=== PATIENT | female | born 1930 | race African-American/Black ===

== ENCOUNTER → 2016-05-03 | Outpatient (CLI) | payer MEDICARE, OTHER ==
[2016-05-03 08:21] LABS: ALANINE AMINOTRANSFERASE 26 U/L (9-52); ALBUMIN 3.5 g/dL (3.5-5.0); ALKALINE PHOSPHATASE 78 U/L (38-126); ASPARTATE AMINO TRANSFERASE 26 U/L (14-36); BILIRUBIN,TOTAL 0.6 mg/dL (0.2-1.3); CHOLESTEROL 128.39 mg/dL (0-200); Direct HDL 47 mg/dL (>40); TOTAL PROTEIN 6.9 g/dL (6.3-8.2); TRIGLYCERIDES 53 mg/dL (<150)
[2016-05-03 08:25] LABS: ANION GAP 8 (5-19); BLOOD UREA NITROGEN 17 mg/dL (7-20); CALCIUM 9.5 mg/dL (8.4-10.2); CARBON DIOXIDE 33 mmol/L (22-30); CHLORIDE 102 mmol/L (98-107); CREATININE RESULT 1.18 mg/dL (0.52-1.25); GLUCOSE 86 mg/dL (75-110); POTASSIUM 4.8 mmol/L (3.6-5.0); SODIUM 143.1 mmol/L (137-145)
[2016-05-03 08:33] LABS: DIRECT LDL 56 mg/dL (<100)
== END ==
LOC: OD 07:10
PROVIDERS: ATTEND Internal Medicine Cardiovascular Disease
DX: E78.00 Pure hypercholesterolemia, unspecified (principal); Z79.899 Other long term (current) drug therapy
CPT/HCPCS: 36415; 80048; 80061; 80076; 84443

== ENCOUNTER → 2016-06-14 | Outpatient (CLI) | payer MEDICARE, OTHER ==
[2016-06-14 12:42] LABS: ANION GAP 10 (5-19); BLOOD UREA NITROGEN 23 mg/dL (7-20); CALCIUM 9.9 mg/dL (8.4-10.2); CARBON DIOXIDE 33 mmol/L (22-30); CHLORIDE 103 mmol/L (98-107); CREATININE RESULT 1.05 mg/dL (0.52-1.25); GLUCOSE 88 mg/dL (75-110); POTASSIUM 4.3 mmol/L (3.6-5.0); SODIUM 145.6 mmol/L (137-145)
== END ==
LOC: OD 07:24
PROVIDERS: ATTEND Internal Medicine Cardiovascular Disease
DX: N18.3 Chronic kidney disease, stage 3 (moderate) (principal)
CPT/HCPCS: 36415; 80048; 83735

== ENCOUNTER → 2017-03-06 | Outpatient (CLI) | payer MEDICARE, OTHER ==
[2017-03-06 08:30] LABS: ALANINE AMINOTRANSFERASE 34 U/L (9-52); ALBUMIN 3.5 g/dL (3.5-5.0); ALKALINE PHOSPHATASE 92 U/L (38-126); ANION GAP 7 (5-19); ASPARTATE AMINO TRANSFERASE 30 U/L (14-36); BILIRUBIN,DIRECT 0.1 mg/dL (0.0-0.4); BILIRUBIN,TOTAL 0.5 mg/dL (0.2-1.3); BLOOD UREA NITROGEN 17 mg/dL (7-20); CALCIUM 9.5 mg/dL (8.4-10.2); CARBON DIOXIDE 37 mmol/L (22-30); CHLORIDE 103 mmol/L (98-107); CHOLESTEROL 135.85 mg/dL (0-200); CREATININE RESULT 1.19 mg/dL (0.52-1.25); Direct HDL 49 mg/dL (>40); GLUCOSE 85 mg/dL (75-110); POTASSIUM 4.1 mmol/L (3.6-5.0); SODIUM 146.6 mmol/L (137-145); TOTAL PROTEIN 7.1 g/dL (6.3-8.2); TRIGLYCERIDES 56 mg/dL (<150)
[2017-03-06 08:41] LABS: DIRECT LDL 60 mg/dL (<100)
== END ==
LOC: OD 07:44
PROVIDERS: ATTEND Internal Medicine Cardiovascular Disease
DX: E78.00 Pure hypercholesterolemia, unspecified (principal); Z79.899 Other long term (current) drug therapy
CPT/HCPCS: 36415; 80048; 80061; 80076

== ENCOUNTER 2017-05-20 13:15 | Inpatient (IN) | payer MEDICARE, OTHER ==
[2017-05-20] MEDS ORDERED: FUROSEMIDE INJ/PF 20 MG/2 ML SDV IV ONE (13:26)
--- NOTE | 2017-05-20 13:31 | ER Document Report ---
ED Respiratory Problem - General Chief Complaint: Shortness Of Breath Stated Complaint: BREATHING PROBLEMS Time Seen by Provider: 05/20/17 13:25 Mode of Arrival: Medic Cannot obtain history due to: Dementia Notes: 86 years old female presents today with difficulty in breathing and wheezing throughout the lung field as well as coughing largely yellow-green sputum. No fever chills or other constitutional symptoms TRAVEL OUTSIDE OF THE [place] IN LAST 30 DAYS: No - Related Data Allergies/Adverse Reactions: No Known Allergies Allergy (Unverified 02/16/11 13:43) Past Medical History - General Information source: Legal Guardian Cannot obtain history due to: Dementia - Social History Smoking Status: Never Smoker Cigarette use (# per day): No Chew tobacco use (# tins/day): No Smoking Education Provided: No Frequency of alcohol use: None Drug Abuse: None Lives with: Family Family History: Reviewed & Not Pertinent - Past Medical History Cardiac Medical History: Reports: Hx Coronary Artery Disease, Hx Heart Attack, Hx Hypercholesterolemia, Hx Hypertension Pulmonary Medical History: Denies: Hx Tuberculosis Neurological Medical History: Reports: Hx Cerebrovascular Accident GI Medical History: Reports: Hx Gastroesophageal Reflux Disease Musculoskeltal Medical History: Reports Hx Arthritis Psychiatric Medical History: Reports: Hx Depression Past Surgical History: Reports: Hx Hysterectomy, Hx Orthopedic Surgery - left knee replacement. Denies: Hx Pacemaker - Immunizations Hx Diphtheria, Pertussis, Tetanus Vaccination: No Hx Pneumococcal Vaccination: 12/23/10 Review of Systems - Review of Systems -: Yes ROS unobtainable due to patient's medical condition Physical Exam - Vital signs Vitals: Pulse Ox 100 05/20/17 13:15 - Notes Notes: PHYSICAL EXAMINATION: GENERAL: Appears in mild to moderate respiratory discomfort. HEAD: Atraumatic, normocephalic. EYES: Pupils equal round and reactive to light, extraocular movements intact, conjunctiva are normal. ENT: Nares patent, oropharynx clear without exudates. Moist mucous membranes. NECK: Normal range of motion, supple without lymphadenopathy LUNGS: Diffuse rales and expiratory throughout the lung field. HEART: Regular rate and rhythm without murmurs ABDOMEN: Soft, nontender, nondistended abdomen. No guarding, no rebound. No masses appreciated. Female : deferred Musculoskeletal: Normal range of motion, no pitting or edema. No cyanosis. NEUROLOGICAL: She is alert but not oriented to place. According to the sister this is a normal status from the old CVA PSYCH: Normal mood, normal affect. SKIN: Warm, Dry, normal turgor, no rashes or lesions noted. Course - Re-evaluation Re-evalutation: 05/20/17 16:06 Patient remained stable with slight improvement. Lab reports reviewed, discussed with the hospitalist service and currently being admitted. - Vital Signs Vital signs: Temp Pulse Resp BP Pulse Ox 97.8 F 20 158/81 H 98 05/21/17 01:45 05/21/17 06:03 05/21/17 05:01 05/21/17 06:03 - Laboratory Result Diagrams: 05/21/17 04:30 05/21/17 04:30 Laboratory results interpreted by me: 05/20/17 05/20/17 05/20/17 13:10 13:10 14:55 RDW 15.4 H Carbonic Acid 1.63 H ABG pCO2 54.2 H ABG pO2 76.1 L ABG HCO3 30.3 H ABG Total CO2 31.9 H Sodium 147.3 H Carbon Dioxide 33 H Est GFR ( Amer) 59 L Est GFR (Non-Af Amer) 49 L - EKG Interpretation by Me EKG shows normal: Sinus rhythm Rate: Normal Rhythm: NSR When compared to previous EKG there are: No significant change - Sinus rhythm at a rate of 77 bpm normal Jose no acute ST elevation ST depression T-wave inversion noted. Discharge - Discharge Clinical Impression: COPD with exacerbation, Hypercarbia CHF NYHA class III (symptoms with mildly strenuous activities) Qualifiers: Congestive heart failure type: systolic Congestive heart failure chronicity: acute Qualified Code(s): I50.21 - Acute systolic (congestive) heart failure Disposition: ADMITTED INPATIENT Admitting Provider: Hospitalist Unit Admitted: Telemetry
[2017-05-20 13:45] LABS: ABSOLUTE EOSINOPHILS # (AUTO) 0.2 10^3/uL (0.0-0.6); ABSOLUTE LYMPHOCYTES (AUTO) 1.1 10^3/uL (0.5-4.7); ABSOLUTE MONOCYTES (AUTO) 0.5 10^3/uL (0.1-1.4); HEMOGLOBIN 13.4 g/dL (12.0-15.5); LYMPHOCYTES % (AUTO) 22.6 % (13-45); MEAN CORPUSCULAR HEMOGLOBIN 29.2 pg (27.0-33.4); MEAN CORPUSCULAR HGB CONC 32.7 g/dL (32.0-36.0); MEAN CORPUSCULAR VOLUME 89 fl (80-97); MONOCYTES % (AUTO) 10.5 % (3-13); PLATELET COUNT 196 10^3/uL (150-450); RED BLOOD COUNT 4.59 10^6/uL (3.72-5.28); RED CELL DISTRIBUTION WIDTH 15.4 % (11.5-14.0); SEGMENTED NEUTROPHILS % (AUTO) 61.9 % (42-78); TOTAL CELLS COUNTED % (AUTO) 100 %; WHITE BLOOD COUNT 4.8 10^3/uL (4.0-10.5)
--- NOTE | 2017-05-20 13:48 | EKG REPORT ---
SEVERITY:- ABNORMAL ECG - SINUS RHYTHM BORDERLINE LEFT AXIS DEVIATION PROBABLE ANTEROSEPTAL INFARCT, AGE INDETERM : Confirmed by: French Doherty MD 20-May-2017 13:47:17
--- NOTE | 2017-05-20 14:11 | RADIOLOGY REPORT (SQ) ---
EXAM DESCRIPTION: CHEST SINGLE VIEW COMPLETED DATE/TIME: 05/20/2017 1:49 pm REASON FOR STUDY: Acute shortness of breath COMPARISON: Two-view chest 08/20/2012 AP chest 02/18/2011 EXAM PARAMETERS: NUMBER OF VIEWS: One view. TECHNIQUE: Single frontal radiographic view of the chest acquired. RADIATION DOSE: NA LIMITATIONS: None. FINDINGS: LUNGS AND PLEURA: Few Yesi lines at both bases likely mild interstitial edema. No fluffy alveolar infiltrates worrisome for alveolar edema or pneumonia. No pleural effusion. No pneumothorax. MEDIASTINUM AND HILAR STRUCTURES: No masses. Contour normal. HEART AND VASCULAR STRUCTURES: Tortuous uncoiled thoracic aorta. No cardiomegaly BONES: No acute findings. HARDWARE: None in the chest. OTHER: No other significant finding. IMPRESSION: Question mild interstitial edema TECHNICAL DOCUMENTATION: JOB ID: [id number] [employer]- All Rights Reserved Reading location - IP/workstation name: [email or web address]
[2017-05-20 14:14] LABS: ALANINE AMINOTRANSFERASE 27 U/L (9-52); ALBUMIN 3.5 g/dL (3.5-5.0); ALKALINE PHOSPHATASE 75 U/L (38-126); ANION GAP 11 (5-19); ASPARTATE AMINO TRANSFERASE 27 U/L (14-36); BILIRUBIN,DIRECT 0.2 mg/dL (0.0-0.4); BILIRUBIN,TOTAL 0.3 mg/dL (0.2-1.3); BLOOD UREA NITROGEN 18 mg/dL (7-20); CALCIUM 9.2 mg/dL (8.4-10.2); CARBON DIOXIDE 33 mmol/L (22-30); CHLORIDE 103 mmol/L (98-107); CREATINE KINASE 135 U/L (30-135); GLUCOSE 88 mg/dL (75-110); POTASSIUM 3.9 mmol/L (3.6-5.0); SODIUM 147.3 mmol/L (137-145); TOTAL PROTEIN 6.5 g/dL (6.3-8.2)
[2017-05-20 14:23] LABS: NT PRO BNP 443 pg/mL (<450)
[2017-05-20 14:25] LABS: TROPONIN I < 0.012 ng/mL
[2017-05-20 15:05] LABS: APPEARANCE,URINE CLEAR; BILIRUBIN,URINE NEGATIVE (NEGATIVE); COLOR,URINE STRAW; GLUCOSE, URINE NEGATIVE (NEGATIVE); KETONES,URINE NEGATIVE (NEGATIVE); LEUKOCYTE ESTERASE,URINE NEGATIVE (NEGATIVE); NITRITE,URINE NEGATIVE (NEGATIVE); PROTEIN,URINE NEGATIVE (NEGATIVE); URINE SPECIFIC GRAVITY 1.008; UROBILINOGEN,URINE NEGATIVE mg/dL (<2.0)
[2017-05-20 15:09] LABS: ARTERIAL BLOOD BASE EXCESS 3.6 mmol/L; ARTERIAL BLOOD H2CO3 1.63 mmol/L (1.05-1.35); ARTERIAL BLOOD HCO3 30.3 mmol/L (20-26); ARTERIAL BLOOD O2 SATURATION 94.6 % (94-98); ARTERIAL BLOOD PCO2 54.2 mmHg (35-45); ARTERIAL BLOOD PH 7.37 (7.35-7.45); ARTERIAL BLOOD PO2 76.1 mmHg (80-100); ARTERIAL BLOOD TOTAL CO2 31.9 mmol/L (21-25)
[2017-05-20 15:11] LABS: ARTERIAL BLOOD FIO2 3L
[2017-05-20] MEDS ORDERED: ACETAMINOPHEN 325 MG TABLET PO PRN (16:40)
[2017-05-20] MEDS ORDERED: ONDANSETRON HCL INJ/PF 4 MG/2 ML SDV IV PRN (16:40)
--- NOTE | 2017-05-20 17:05 | PDOC H&P ---
History of Present Illness Admission Date/PCP: 05/20/2017 PEGGY CLAYTON MD Patient complains of: Shortness of breath History of Present Illness: JASON ZHENG is a 86 year old female presents to the emergency room with complaint of shortness of breath that began yesterday. Patient's niece states that she has noticed that patient's blood pressure has been very high at home. Patient's states that patient is seen by Dr. Fernandez and he tried to take patient to Dr. Fernandez's office today but she was not able to see him. Patient states that due to patient's shortness breath he brought her to the hospital. She denied chest pain, nausea or vomiting, or diarrhea. Patient does admit to having shortness of breath. Past Medical History Cardiac Medical History: Reports: Coronary Artery Disease, Myocardial Infarction , Hyperlipidema, Hypertension Pulmonary Medical History: Denies: Tuberculosis GI Medical History: Reports: Gastroesophageal Reflux Disease Musculoskeltal Medical History: Reports: Arthritis Psychiatric Medical History: Reports: Depression Past Surgical History Past Surgical History: Reports: Hysterectomy, Orthopedic Surgery - left knee replacement Denies: Pacemaker Social History Information Source: Patient Lives with: Family Smoking Status: Never Smoker Frequency of Alcohol Use: None Hx Recreational Drug Use: No Drugs: None Hx Prescription Drug Abuse: No - Advance Directive Resuscitation Status: Full Code Family History Family History: Reviewed & Not Pertinent Parental Family History Reviewed: Yes Children Family History Reviewed: Yes Sibling(s) Family History Reviewed.: Yes Medication/Allergy Allergies/Adverse Reactions: No Known Allergies Allergy (Unverified 02/16/11 13:43) Review of Systems Constitutional: ABSENT: chills, fever(s), headache(s), weight gain, weight loss Eyes: ABSENT: visual disturbances Ears: ABSENT: hearing changes Cardiovascular: PRESENT: orthropnea. ABSENT: chest pain, dyspnea on exertion, edema, palpitations Respiratory: PRESENT: dyspnea. ABSENT: cough, hemoptysis Gastrointestinal: ABSENT: abdominal pain, constipation, diarrhea, hematemesis, hematochezia, nausea, vomiting Genitourinary: ABSENT: dysuria, hematuria Musculoskeletal: ABSENT: joint swelling Integumentary: ABSENT: rash, wounds Neurological: ABSENT: abnormal gait, abnormal speech, confusion, dizziness, focal weakness, syncope Psychiatric: ABSENT: anxiety, depression, homidical ideation, suicidal ideation Endocrine: ABSENT: cold intolerance, heat intolerance, polydipsia, polyuria Hematologic/Lymphatic: ABSENT: easy bleeding, easy bruising Physical Exam Vital Signs: Temp Pulse Resp BP Pulse Ox 100 05/20/17 13:15 General appearance: PRESENT: no acute distress, well-nourished Head exam: PRESENT: atraumatic, normocephalic Eye exam: PRESENT: conjunctiva pink, EOMI. ABSENT: scleral icterus Ear exam: PRESENT: normal external ear exam Mouth exam: PRESENT: moist, tongue midline Neck exam: ABSENT: carotid bruit, JVD, lymphadenopathy, thyromegaly Respiratory exam: PRESENT: other - Positive for crackles heard bilaterally. ABSENT: accessory muscle use, chest wall tenderness, clear to auscultation juanjose, crackles, prolonged expiratory phas, rales Cardiovascular exam: PRESENT: RRR. ABSENT: diastolic murmur, rubs, systolic murmur Pulses: PRESENT: normal dorsalis pedis pul Vascular exam: PRESENT: normal capillary refill GI/Abdominal exam: PRESENT: normal bowel sounds, soft. ABSENT: distended, guarding, mass, organolmegaly, rebound, tenderness Rectal exam: PRESENT: deferred Extremities exam: PRESENT: full ROM. ABSENT: calf tenderness, clubbing, pedal edema Musculoskeletal exam: PRESENT: full ROM Neurological exam: PRESENT: alert, awake, oriented to person, oriented to place , oriented to time, oriented to situation Psychiatric exam: PRESENT: appropriate affect, normal mood. ABSENT: homicidal ideation, suicidal ideation Skin exam: PRESENT: dry, intact, warm. ABSENT: cyanosis, rash Results Laboratory Results: 05/20/17 13:10 05/20/17 13:10 05/20/17 05/20/17 05/20/17 13:10 13:10 14:45 WBC 4.8 RBC 4.59 Hgb 13.4 Hct 41.0 MCV 89 MCH 29.2 MCHC 32.7 RDW 15.4 H Plt Count 196 Seg Neutrophils % 61.9 Lymphocytes % 22.6 Monocytes % 10.5 Eosinophils % 4.0 Basophils % 1.0 Absolute Neutrophils 3.0 Absolute Lymphocytes 1.1 Absolute Monocytes 0.5 Absolute Eosinophils 0.2 Absolute Basophils 0.0 Carbonic Acid HCO3/H2CO3 Ratio ABG pH ABG pCO2 ABG pO2 ABG HCO3 ABG O2 Saturation ABG Base Excess FiO2 Sodium 147.3 H Potassium 3.9 Chloride 103 Carbon Dioxide 33 H Anion Gap 11 BUN 18 Creatinine 1.07 Est GFR ( Amer) 59 L Est GFR (Non-Af Amer) 49 L Glucose 88 Calcium 9.2 Total Bilirubin 0.3 AST 27 ALT 27 Alkaline Phosphatase 75 Total Protein 6.5 Albumin 3.5 Urine Color STRAW Urine Appearance CLEAR Urine pH 7.0 Ur Specific [place] 1.008 Urine Protein NEGATIVE Urine Glucose (UA) NEGATIVE Urine Ketones NEGATIVE Urine Blood NEGATIVE Urine Nitrite NEGATIVE Ur Leukocyte Esterase NEGATIVE Urine WBC (Auto) 1 Urine RBC (Auto) 1 05/20/17 14:55 WBC RBC Hgb Hct MCV MCH MCHC RDW Plt Count Seg Neutrophils % Lymphocytes % Monocytes % Eosinophils % Basophils % Absolute Neutrophils Absolute Lymphocytes Absolute Monocytes Absolute Eosinophils Absolute Basophils Carbonic Acid 1.63 H HCO3/H2CO3 Ratio 18:1 ABG pH 7.37 ABG pCO2 54.2 H ABG pO2 76.1 L ABG HCO3 30.3 H ABG O2 Saturation 94.6 ABG Base Excess 3.6 FiO2 3L Sodium Potassium Chloride Carbon Dioxide Anion Gap BUN Creatinine Est GFR ( Amer) Est GFR (Non-Af Amer) Glucose Calcium Total Bilirubin AST ALT Alkaline Phosphatase Total Protein Albumin Urine Color Urine Appearance Urine pH Ur Specific [place] Urine Protein Urine Glucose (UA) Urine Ketones Urine Blood Urine Nitrite Ur Leukocyte Esterase Urine WBC (Auto) Urine RBC (Auto) 05/20/17 05/20/17 13:10 13:10 Creatine Kinase 135 CK-MB (CK-2) 2.70 Troponin I < 0.012 NT-Pro-B Natriuret Pep 443 Impressions: Chest X-Ray 05/20/17 13:26 IMPRESSION: Question mild interstitial edema Assessment & Plan - Diagnosis (1) Acute on chronic diastolic CHF (congestive heart failure) Is this a current diagnosis for this admission?: Yes Plan: Most likely secondary to diastolic congestive heart failure and poorly controlled blood pressure: We will place patient on low-dose Lasix. Will repeat chest x-ray in a.m. Patient's presentation consistent with CHF exacerbation. X-ray does not demonstrate evidence consistent with pneumonia. Will check 2D echo (2) Essential hypertension Is this a current diagnosis for this admission?: Yes Plan: Patient's blood pressure is poorly controlled. Will restart patient's home medications but make adjustments for better blood pressure control. This would also contribute to patient's CHF exacerbation. (3) Dyspnea Is this a current diagnosis for this admission?: Yes Plan: Secondary to acute on chronic diastolic congestive heart failure: Low-dose Lasix (4) History of CVA (cerebrovascular accident) Is this a current diagnosis for this admission?: No Plan: Stable (5) Hypernatremia Is this a current diagnosis for this admission?: Yes Plan: We will monitor patient's sodium closely. (6) DVT prophylaxis Is this a current diagnosis for this admission?: Yes Plan: SCDs - Time Time Spent: 30 to 50 Minutes - Home medicines currently not reconciled.
[2017-05-20 18:12] LABS: CREATINE KINASE MB 2.49 ng/mL (<4.55)
[2017-05-20 18:17] LABS: TROPONIN I < 0.012 ng/mL
[2017-05-20 23:23] LABS: CREATINE KINASE MB 1.94 ng/mL (<4.55)
[2017-05-20 23:25] LABS: TROPONIN I < 0.012 ng/mL
[2017-05-21 05:33] LABS: ABSOLUTE LYMPHOCYTES (AUTO) 0.5 10^3/uL (0.5-4.7); ABSOLUTE MONOCYTES (AUTO) 0.2 10^3/uL (0.1-1.4); ABSOLUTE NEUT (AUTO) 6.4 10^3/uL (1.7-8.2); BASOPHILS % (AUTO) 0.2 % (0-2); HEMATOCRIT 43.1 % (36.0-47.0); HEMOGLOBIN 14.2 g/dL (12.0-15.5); LYMPHOCYTES % (AUTO) 7.5 % (13-45); MEAN CORPUSCULAR HEMOGLOBIN 29.1 pg (27.0-33.4); MEAN CORPUSCULAR HGB CONC 32.9 g/dL (32.0-36.0); MEAN CORPUSCULAR VOLUME 89 fl (80-97); MONOCYTES % (AUTO) 2.2 % (3-13); PLATELET COUNT 230 10^3/uL (150-450); RED BLOOD COUNT 4.88 10^6/uL (3.72-5.28); RED CELL DISTRIBUTION WIDTH 15.3 % (11.5-14.0); SEGMENTED NEUTROPHILS % (AUTO) 90.1 % (42-78); TOTAL CELLS COUNTED % (AUTO) 100 %; WHITE BLOOD COUNT 7.1 10^3/uL (4.0-10.5)
[2017-05-21 05:56] LABS: ALANINE AMINOTRANSFERASE 24 U/L (9-52); ALBUMIN 3.4 g/dL (3.5-5.0); ALKALINE PHOSPHATASE 64 U/L (38-126); ANION GAP 5 (5-19); ASPARTATE AMINO TRANSFERASE 22 U/L (14-36); BILIRUBIN,DIRECT 0.3 mg/dL (0.0-0.4); BILIRUBIN,TOTAL 0.4 mg/dL (0.2-1.3); BLOOD UREA NITROGEN 19 mg/dL (7-20); CALCIUM 9.5 mg/dL (8.4-10.2); CARBON DIOXIDE 34 mmol/L (22-30); CHLORIDE 104 mmol/L (98-107); CHOLESTEROL 142.08 mg/dL (0-200); GLUCOSE 119 mg/dL (75-110); POTASSIUM 4.7 mmol/L (3.6-5.0); TOTAL PROTEIN 6.8 g/dL (6.3-8.2); TRIGLYCERIDES 40 mg/dL (<150)
[2017-05-21 06:04] LABS: CREATINE KINASE MB 1.57 ng/mL (<4.55)
[2017-05-21 06:07] LABS: DIRECT LDL 73 mg/dL (<100)
[2017-05-21 06:10] LABS: FREE T4 (FREE THYROXINE) 0.87 ng/dL (0.78-2.19)
[2017-05-21 06:17] LABS: TROPONIN I < 0.012 ng/mL
[2017-05-21 06:24] LABS: THYROID STIMULATING HORMONE 0.43 uIU/mL (0.47-4.68)
[2017-05-21] MEDS: LANSOPRAZOLE 30 MG TAB.RAP.DR PO SCH (07:43)
--- NOTE | 2017-05-21 08:43 | RADIOLOGY REPORT (SQ) ---
EXAM DESCRIPTION: CHEST SINGLE VIEW COMPLETED DATE/TIME: 05/21/2017 8:33 am REASON FOR STUDY: shortness of breath CHF COMPARISON: Chest films 02/18/2011, 08/20/2012, 05/20/2017 EXAM PARAMETERS: NUMBER OF VIEWS: One view. TECHNIQUE: Single frontal radiographic view of the chest acquired. RADIATION DOSE: NA LIMITATIONS: None. FINDINGS: LUNGS AND PLEURA: No opacities, masses or pneumothorax. No pleural effusion. MEDIASTINUM AND HILAR STRUCTURES: No masses. Contour normal. HEART AND VASCULAR STRUCTURES: Mild cardiomegaly, stable BONES: No acute findings. HARDWARE: None in the chest. OTHER: No other significant finding. IMPRESSION: NO ACUTE RADIOGRAPHIC FINDING IN THE CHEST. TECHNICAL DOCUMENTATION: JOB ID: [id number] [employer]- All Rights Reserved Reading location - IP/workstation name: [email or web address]
[2017-05-21] MEDS ORDERED: FUROSEMIDE INJ/PF 20 MG/2 ML SDV IV SCH ×2 (10:00→18:00)
[2017-05-21] MEDS ORDERED: ALPRAZOLAM 0.5 MG TABLET PO PRN (11:01)
[2017-05-21] MEDS ORDERED: LISINOPRIL 10 MG TABLET PO ONE (11:05)
[2017-05-21] MEDS ORDERED: AMLODIPINE BESYLATE 5 MG TABLET PO ONE (11:05)
--- NOTE | 2017-05-21 11:10 | PDOC PROGRESS REPORT ---
Subjective Progress Note for:: 05/21/17 Subjective:: Pt states that her breathing has improved. Pt states that she was about to sleep without oxygen. Nursing states that her sats dropped in to the low 80 to upper 90's. Reason For Visit: ACUTE ON CHRONIC DIASTOLIC CHF Physical Exam Vital Signs: Temp Pulse Resp BP Pulse Ox 97.8 F 19 100/65 96 05/21/17 01:45 05/21/17 09:01 05/21/17 09:01 05/21/17 09:01 General appearance: PRESENT: no acute distress, well-developed, well-nourished, other - Nasal canula in place Head exam: PRESENT: atraumatic, normocephalic Eye exam: PRESENT: conjunctiva pink, EOMI Ear exam: PRESENT: normal external ear exam Mouth exam: PRESENT: moist, tongue midline Neck exam: ABSENT: carotid bruit, JVD, lymphadenopathy, thyromegaly Respiratory exam: PRESENT: rales, other - Bilateral lower lobes. ABSENT: wheezes Cardiovascular exam: PRESENT: RRR. ABSENT: diastolic murmur, rubs, systolic murmur Pulses: PRESENT: normal dorsalis pedis pul Vascular exam: PRESENT: normal capillary refill GI/Abdominal exam: PRESENT: normal bowel sounds, soft. ABSENT: distended, guarding, mass, organolmegaly, rebound, tenderness Rectal exam: PRESENT: deferred Extremities exam: ABSENT: calf tenderness, clubbing, pedal edema Neurological exam: PRESENT: alert, altered, oriented to person, oriented to place, oriented to time Psychiatric exam: PRESENT: appropriate affect, normal mood. ABSENT: homicidal ideation, suicidal ideation Skin exam: PRESENT: dry, intact, warm. ABSENT: cyanosis, rash Results Laboratory Results: 05/21/17 04:30 05/21/17 04:30 05/21/17 05/21/17 05/21/17 04:30 04:30 04:30 WBC 7.1 RBC 4.88 Hgb 14.2 Hct 43.1 MCV 89 MCH 29.1 MCHC 32.9 RDW 15.3 H Plt Count 230 Seg Neutrophils % 90.1 H Lymphocytes % 7.5 L Monocytes % 2.2 L Eosinophils % 0.0 Basophils % 0.2 Absolute Neutrophils 6.4 Absolute Lymphocytes 0.5 Absolute Monocytes 0.2 Absolute Eosinophils 0.0 Absolute Basophils 0.0 Sodium 143.0 Potassium 4.7 Chloride 104 Carbon Dioxide 34 H Anion Gap 5 BUN 19 Creatinine 0.85 Est GFR ( Amer) > 60 Est GFR (Non-Af Amer) > 60 Glucose 119 H Calcium 9.5 Magnesium 2.0 Total Bilirubin 0.4 AST 22 ALT 24 Alkaline Phosphatase 64 Total Protein 6.8 Albumin 3.4 L Triglycerides 40 Cholesterol 142.08 LDL Cholesterol Direct 73 VLDL Cholesterol 8.0 L HDL Cholesterol 54 TSH 0.43 L Free T4 0.87 05/20/17 05/20/17 05/21/17 17:32 22:35 04:30 CK-MB (CK-2) 2.49 1.94 1.57 Troponin I < 0.012 < 0.012 < 0.012 Impressions: Chest X-Ray 05/21/17 00:00 IMPRESSION: NO ACUTE RADIOGRAPHIC FINDING IN THE CHEST. Assessment & Plan - Diagnosis (1) Acute on chronic diastolic CHF (congestive heart failure) Is this a current diagnosis for this admission?: Yes Plan: Most likely secondary to presumed diastolic congestive heart failure with poorly controlled blood pressure: We will continue Lasix. Chest x-ray demonstrates improvement in pulmonary edema but patient still has evidence consistent with pulmonary edema. Patient states that she is not requiring nasal cannula however nursing states that her sats are in the 80s to lower 90s. (2) Essential hypertension Is this a current diagnosis for this admission?: Yes Plan: Place patient on low-dose lisinopril and Norvasc. Would add metoprolol however her heart rate is in the 60s. (3) Dyspnea Is this a current diagnosis for this admission?: Yes Plan: Secondary to acute on chronic diastolic congestive heart failure: Improving with diuresis. We will continue to monitor. 2D echo pending (4) History of CVA (cerebrovascular accident) Is this a current diagnosis for this admission?: No Plan: Supportive care. (5) Hypernatremia Is this a current diagnosis for this admission?: Yes Plan: Resolved. (6) DVT prophylaxis Is this a current diagnosis for this admission?: Yes Plan: SCDs - Time Time Spent with patient: 15-24 minutes
[2017-05-21] MEDS: FLUOXETINE HCL 20 MG CAPSULE PO SCH (12:45)
[2017-05-21] MEDS ORDERED: INFLUENZA ADLT QUAD (36MOS+) 2017-18 VAC 0.5 ML SYR IM PRN (15:07)
--- NOTE | 2017-05-21 18:48 | XCELERA REPORT ---
[address] [address] Transthoracic Echocardiogram Report Name: JASON ZHENG Age: 86 yrs Gender: Female : 1930 Patient Status: Inpatient Patient Location: [place] [address]^A Study Date: 05/21/2017 01:13 PM Height: 63 in Weight: 145 lb BSA: 1.7 m2 Procedure: A complete two-dimensional transthoracic echocardiogram was performed (2D, M-mode, spectral and color flow Doppler). The study was technically adequate with some images being suboptimal in quality. Reason For Study: Acute CHF Ordering Physician: ERMELINDA PERALES Performed By: Pili Melendez Interpretation Summary The left ventricular ejection fraction is within normal limits. Doppler measurements suggest pseudonormalized left ventricular relaxation, which is associated with grade II/IV or mild to moderate diastolic dysfunction There is mild concentric left ventricular hypertrophy. The left ventricle is grossly normal size. Wall motion cannot be accurately commented on, but no definite regional wall motion abnormalities noted. The right ventricular systolic function is normal. The right atrium is normal. The left atrial size is normal. There is a trace to mild amount of mitral regurgitation There is no mitral valve stenosis. There is a mild amount of aortic regurgitation There is no aortic valve stenosis There is a trace or physiologic amount of tricuspid regurgitation Tricuspid regurgitation jet envelope not well defined to measure RV systolic pressure accurately. The aortic root is not well visualized. The inferior vena cava appeared normal and decreased > 50% with respiration (RAP 5-10 mmHg) Minimal pericardial effusion. MMode/2D Measurements & Calculations RVDd: 2.7 cm LVIDd: 4.3 cm FS: 30.2 % Ao root diam: 2.9 cm IVSd: 1.1 cm LVIDs: 3.0 cm EDV(Teich): 82.0 ml LVPWd: 1.2 cm ESV(Teich): 34.6 ml Ao root area: 6.5 cm2 EF(Teich): 57.8 % LA dimension: 2.9 cm Doppler Measurements & Calculations MV E max edel: MV P1/2t max edel: Ao V2 max: AI max edel: 89.3 cm/sec 89.3 cm/sec 122.6 cm/sec 333.4 cm/sec MV A max edel: MV P1/2t: 53.2 msec Ao max PG: AI max P.1 cm/sec 6.0 mmHg 44.5 mmHg MV E/A: 1.3 MVA(P1/2t): 4.1 cm2 AI dec slope: MV dec slope: 492.0 cm/sec2 110.9 cm/sec2 AI P1/2t: 880.4 msec LV V1 max PG: PA V2 max: TR max edel: 3.8 mmHg 61.2 cm/sec 232.1 cm/sec LV V1 max: PA max P.5 mmHg TR max P.2 cm/sec 21.6 mmHg Left Ventricle The left ventricle is grossly normal size. There is mild concentric left ventricular hypertrophy. The left ventricular ejection fraction is within normal limits. Doppler measurements suggest pseudonormalized left ventricular relaxation, which is associated with grade II/IV or mild to moderate diastolic dysfunction. Wall motion cannot be accurately commented on, but no definite regional wall motion abnormalities noted. Right Ventricle The right ventricle is grossly normal size. There is normal right ventricular wall thickness. The right ventricular systolic function is normal. Atria The right atrium is normal. The left atrial size is normal. Interarterial septum not well visualized and not well dopplered. Cannot comment on ASD/PFO presence. Mitral Valve The mitral valve is grossly normal. There is no mitral valve stenosis. There is a trace to mild amount of mitral regurgitation. Aortic Valve The aortic valve is grossly normal. There is no aortic valve stenosis. There is a mild amount of aortic regurgitation. Tricuspid Valve The tricuspid valve is not well visualized, but is grossly normal. There is no tricuspid stenosis. There is a trace or physiologic amount of tricuspid regurgitation. Tricuspid regurgitation jet envelope not well defined to measure RV systolic pressure accurately. Pulmonic Valve The pulmonic valve is not well visualized. Great Vessels The aortic root is not well visualized. The inferior vena cava appeared normal and decreased > 50% with respiration (RAP 5-10 mmHg). Effusions Minimal pericardial effusion. : ERMELINDA PERALES > Raphael Tian
[2017-05-21] MEDS: RISPERIDONE 1 MG TABLET PO SCH (21:06)
[2017-05-21] MEDS: TOLTERODINE TARTRATE 1 MG TABLET PO SCH (21:06)
[2017-05-22] MEDS: LANSOPRAZOLE 30 MG TAB.RAP.DR PO SCH (05:08)
[2017-05-22] MEDS: TOLTERODINE TARTRATE 1 MG TABLET PO SCH ×2 (09:59→22:12)
[2017-05-22] MEDS: AMLODIPINE BESYLATE 5 MG TABLET PO SCH (10:00)
[2017-05-22] MEDS: EZETIMIBE 10 MG TABLET PO SCH (10:00)
[2017-05-22] MEDS ORDERED: (PENDING PHARMACY ID) (Tolterodine Tartrate [Detrol La] 4 MG) PO SCH (10:00)
[2017-05-22] MEDS: FUROSEMIDE INJ/PF 20 MG/2 ML SDV IV SCH (10:01)
[2017-05-22] MEDS: LISINOPRIL 10 MG TABLET PO SCH (10:01)
[2017-05-22] MEDS: FLUOXETINE HCL 20 MG CAPSULE PO SCH (11:35)
--- NOTE | 2017-05-22 14:18 | PDOC PROGRESS REPORT ---
Subjective Progress Note for:: 05/22/17 Subjective:: No overnight events. Feeling better. Still requiring O2. No specific complaints. Has not been getting out of bed. Reason For Visit: ACUTE ON CHRONIC DIASTOLIC CHF Physical Exam Vital Signs: Temp Pulse Resp BP Pulse Ox 98.6 F 66 20 114/55 L 100 05/22/17 12:25 05/22/17 12:25 05/22/17 12:25 05/22/17 12:25 05/22/17 12:25 Intake & Output 05/21/17 05/22/17 05/23/17 06:59 06:59 06:59 Intake Total 467 355 Output Total 740 Balance -273 355 Weight 65.9 kg General appearance: PRESENT: no acute distress, well-developed, well-nourished Head exam: PRESENT: atraumatic, normocephalic Mouth exam: PRESENT: moist Respiratory exam: PRESENT: crackles, decreased breath sounds, unlabored - On supplemental O2 Cardiovascular exam: PRESENT: +S1, +S2. ABSENT: systolic murmur GI/Abdominal exam: PRESENT: soft. ABSENT: tenderness Extremities exam: ABSENT: pedal edema Neurological exam: PRESENT: alert, awake Psychiatric exam: PRESENT: appropriate affect Results Laboratory Results: 05/21/17 04:30 05/21/17 04:30 05/20/17 05/20/17 05/21/17 17:32 22:35 04:30 CK-MB (CK-2) 2.49 1.94 1.57 Troponin I < 0.012 < 0.012 < 0.012 Impressions: Chest X-Ray 05/21/17 00:00 IMPRESSION: NO ACUTE RADIOGRAPHIC FINDING IN THE CHEST. Assessment & Plan - Diagnosis (1) Acute on chronic diastolic CHF (congestive heart failure) Is this a current diagnosis for this admission?: Yes Plan: Per TTE, HFpEF with Grade II/IV diastolic dysfunction - Continue with gentle diuresis, Lasix 20mg IV daily - Occasionally requiring O2 however good O2 sats (2) Dyspnea Qualifiers: Dyspnea type: dyspnea on exertion Qualified Code(s): R06.09 - Other forms of dyspnea Is this a current diagnosis for this admission?: Yes Plan: Continue management per above (3) Essential hypertension Is this a current diagnosis for this admission?: Yes Plan: Blood pressure stable (4) History of CVA (cerebrovascular accident) Is this a current diagnosis for this admission?: No Plan: Supportive management. - Time Time Spent with patient: Less than 15 minutes Anticipated discharge: Home with Homehealth Within: within 24 hours
[2017-05-22] MEDS: RISPERIDONE 1 MG TABLET PO SCH (22:12)
[2017-05-23] MEDS: LANSOPRAZOLE 30 MG TAB.RAP.DR PO SCH (05:20)
[2017-05-23] MEDS: FUROSEMIDE INJ/PF 20 MG/2 ML SDV IV SCH (09:35)
[2017-05-23] MEDS: TOLTERODINE TARTRATE 1 MG TABLET PO SCH (09:36)
[2017-05-23] MEDS: EZETIMIBE 10 MG TABLET PO SCH (09:36)
[2017-05-23] MEDS: AMLODIPINE BESYLATE 5 MG TABLET PO SCH (09:37)
[2017-05-23] MEDS: LISINOPRIL 10 MG TABLET PO SCH (09:37)
--- NOTE | 2017-05-23 10:15 | PDOC DISCHARGE SUMMARY ---
General - Admit/Disc Date/PCP Admission Date/Primary Care Provider: 05/22/17 15:59 PEGGY CLAYTON MD Discharge Date: 05/23/17 - Discharge Diagnosis (1) Acute on chronic diastolic CHF (congestive heart failure) Is this a current diagnosis for this admission?: Yes Summary: Improved, euvolemic on exam. Back to baseline of not requiring supplemental O2. - Received gentle diuresis with Lasix 20mg IV daily, continue PO lasix at home - Echo this admission: HFpEF with Grade II/IV diastolic dysfunction - Advised to follow cardiac diet, monitor fluid intake, check daily weights - Called PCP if weight is up 2-3 lbs in 1 day, or >5 lbs in one week (2) Dyspnea Is this a current diagnosis for this admission?: Yes Summary: Resolved with diuresis (3) Essential hypertension Is this a current diagnosis for this admission?: Yes Summary: Elevated at admission, better control at discharge - New medications include amlodipine 5mg daily PO and lisinopril 10mg daily PO - Check BP at home and ensure it is not above SBP 150 - Follow up with PCP for BP med adjustment as needed (4) History of CVA (cerebrovascular accident) Is this a current diagnosis for this admission?: No Summary: Stable - Should be on ASA 81mg daily and statin for secondary ppx, will defer to PCP - Additional Information Resuscitation Status: Full Code Discharge Diet: Cardiac Discharge Activity: Activity As Tolerated Prescriptions: Amlodipine Besylate [Norvasc 5 mg Tablet] 5 mg PO DAILY 2 Days #30 tablet Lisinopril [Prinivil 10 mg Tablet] 10 mg PO DAILY #30 tablet Home Medications: Alprazolam [Xanax 0.5 mg Tablet] 0.5 mg PO Q8HP PRN 05/20/17 Fluoxetine HCl [Prozac] 40 mg PO DAILY 05/20/17 Furosemide [Lasix 40 mg Tablet] 40 mg PO DAILY 05/20/17 Risperidone [Risperdal 1 mg Tablet] 1 g PO QHS 05/20/17 Tolterodine Tartrate [Detrol LA] 4 mg PO DAILY 05/20/17 Amlodipine Besylate [Norvasc 5 mg Tablet] 5 mg PO DAILY 2 Days #30 tablet Lisinopril [Prinivil 10 mg Tablet] 10 mg PO DAILY #30 tablet 05/23/17 History of Present Illness Patient complains of: SOB History of Present Illness: JASON ZHENG is a 86 year old female who presented on 05/20/17 to emergency room with complaint of shortness of breath that began yesterday. Patient's niece states that she has noticed that patient's blood pressure has been very high at home. Patient's states that patient is seen by Dr. Fernandez and he tried to take patient to Dr. Fernandez's office today but she was not able to see him. Patient states that due to patient's shortness breath he brought her to the hospital. She denied chest pain, nausea or vomiting, or diarrhea. Patient does admit to having shortness of breath. Physical Exam Vital Signs: Temp Pulse Resp BP Pulse Ox 98.5 F 60 17 153/58 H 100 05/23/17 07:28 05/23/17 07:28 05/23/17 07:28 05/23/17 07:28 05/23/17 07:28 Intake & Output 05/22/17 05/23/17 05/24/17 06:59 06:59 06:59 Intake Total 704 Balance 704 Weight 65.4 kg General appearance: PRESENT: no acute distress, well-developed, well-nourished Head exam: PRESENT: normocephalic Mouth exam: PRESENT: moist Respiratory exam: PRESENT: crackles - Occasional, decreased breath sounds, unlabored. ABSENT: tachypnea Cardiovascular exam: PRESENT: RRR GI/Abdominal exam: PRESENT: soft. ABSENT: tenderness Neurological exam: PRESENT: alert, awake, CN II-XII grossly intact, other - Neurologically at baseline Psychiatric exam: PRESENT: appropriate affect Results Impressions: Chest X-Ray 05/21/17 00:00 IMPRESSION: NO ACUTE RADIOGRAPHIC FINDING IN THE CHEST. Qualifiers - * PATEINT BEING DISCHARGED WITH ANY OF THE FOLLOWING DIAGNOSIS?: No
[2017-05-23 11:28] VITALS: BP 152/65
== END 2017-05-23 12:50 | disposition home or self-care (01) | DRG 292 ==
LOC: ER 13:15 → INTOOBSV 16:36 → EH 16:36 → 3S 05-21 14:48 → OBSVTOIN 05-22 15:59
PROVIDERS: ADMIT Emergency Medicine; ATTEND Emergency Medicine
PROC: 3E0234Z Introduction of Serum, Toxoid and Vaccine into Muscle, Percutaneous Approach (ICD-10-PCS; principal; 2017-05-23)
DX: I11.0 Hypertensive heart disease with heart failure (principal); E87.0 Hyperosmolality and hypernatremia; I50.33 Acute on chronic diastolic (congestive) heart failure; F03.90 Unspecified dementia, unspecified severity, without behavioral disturbance, psychotic disturbance, mood disturbance, and anxiety; I25.10 Atherosclerotic heart disease of native coronary artery without angina pectoris; E78.00 Pure hypercholesterolemia, unspecified; K21.9 Gastro-esophageal reflux disease without esophagitis; F32.9 Major depressive disorder, single episode, unspecified; I25.2 Old myocardial infarction; Z96.652 Presence of left artificial knee joint; Z86.73 Personal history of transient ischemic attack (TIA), and cerebral infarction without residual deficits; Z23 Encounter for immunization
CPT/HCPCS: 36415; 36600; 71045; 80053; 80061; 81001; 82550; 82553; 82803; 83036; 83735; 83880; 84439; 84443; 84484; 85025; 87040; 87077; 87186; 90686; 93005; 93010; 93306; 96374; 99285; G0378; G8978-GP; G8979-GP; G8980-GP; J1940

== ENCOUNTER → 2017-07-25 | Outpatient (CLI) | payer MEDICARE, OTHER ==
[2017-07-25 08:45] LABS: BLOOD UREA NITROGEN 20 mg/dL (7-20); CALCIUM 9.7 mg/dL (8.4-10.2); CHLORIDE 99 mmol/L (98-107); GLUCOSE 90 mg/dL (75-110); POTASSIUM 4.6 mmol/L (3.6-5.0)
[2017-07-25 08:54] LABS: ANION GAP 6 (5-19)
[2017-07-25 08:57] LABS: CARBON DIOXIDE 42 mmol/L (22-30)
== END ==
LOC: OD 07:34
PROVIDERS: ATTEND Internal Medicine Cardiovascular Disease
DX: I10 Essential (primary) hypertension (principal); R06.02 Shortness of breath; Z79.899 Other long term (current) drug therapy
CPT/HCPCS: 36415; 80048; 83735; 83880

== ENCOUNTER → 2017-12-18 | Outpatient (CLI) | payer MEDICARE, OTHER ==
[2017-12-18 09:55] LABS: BLOOD UREA NITROGEN 17 mg/dL (7-20); CALCIUM 9.2 mg/dL (8.4-10.2); GLUCOSE 80 mg/dL (75-110); POTASSIUM 4.8 mmol/L (3.6-5.0); TRIGLYCERIDES 66 mg/dL (<150)
[2017-12-18 10:00] LABS: CARBON DIOXIDE 37 mmol/L (22-30); CHLORIDE 99 mmol/L (98-107); SODIUM 139.8 mmol/L (137-145)
[2017-12-18 10:02] LABS: ANION GAP 4 (5-19)
[2017-12-18 10:05] LABS: DIRECT LDL 80 mg/dL (<100)
== END ==
LOC: OD 07:49
PROVIDERS: ATTEND Internal Medicine Cardiovascular Disease
DX: R06.02 Shortness of breath (principal); I10 Essential (primary) hypertension; E78.00 Pure hypercholesterolemia, unspecified; I25.2 Old myocardial infarction; Z79.899 Other long term (current) drug therapy
CPT/HCPCS: 36415; 80048; 80061; 83735; 83880

== ENCOUNTER → 2018-02-24 | Outpatient (CLI) | payer MEDICARE, OTHER ==
[2018-02-25 14:22] LABS: ALANINE AMINOTRANSFERASE 20 U/L (9-52); ALBUMIN 3.2 g/dL (3.5-5.0); ALKALINE PHOSPHATASE 82 U/L (38-126); ANION GAP 7 (5-19); ASPARTATE AMINO TRANSFERASE 29 U/L (14-36); BILIRUBIN,DIRECT 0.2 mg/dL (0.0-0.4); BILIRUBIN,TOTAL 0.5 mg/dL (0.2-1.3); BLOOD UREA NITROGEN 18 mg/dL (7-20); CALCIUM 9.1 mg/dL (8.4-10.2); CARBON DIOXIDE 37 mmol/L (22-30); CHLORIDE 101 mmol/L (98-107); CHOLESTEROL 127.92 mg/dL (0-200); DIRECT LDL 75 mg/dL (<100); GLUCOSE 78 mg/dL (75-110); POTASSIUM 4.5 mmol/L (3.6-5.0); SODIUM 144.7 mmol/L (137-145); TRIGLYCERIDES 54 mg/dL (<150)
== END ==
LOC: OD 08:01
PROVIDERS: ATTEND Physician Assistant
DX: E78.00 Pure hypercholesterolemia, unspecified (principal); I10 Essential (primary) hypertension; Z79.899 Other long term (current) drug therapy
CPT/HCPCS: 36415; 80048; 80061; 80076

== ENCOUNTER → 2018-03-05 | Outpatient (CLI) | payer MEDICARE, OTHER ==
[2018-03-05 11:38] LABS: ABSOLUTE EOSINOPHILS # (AUTO) 0.2 10^3/uL (0.0-0.6); ABSOLUTE LYMPHOCYTES (AUTO) 0.9 10^3/uL (0.5-4.7); ABSOLUTE MONOCYTES (AUTO) 0.6 10^3/uL (0.1-1.4); ABSOLUTE NEUT (AUTO) 3.3 10^3/uL (1.7-8.2); BASOPHILS % (AUTO) 0.9 % (0-2); EOSINOPHILS % (AUTO) 4.4 % (0-6); HEMATOCRIT 44.6 % (36.0-47.0); HEMOGLOBIN 14.7 g/dL (12.0-15.5); LYMPHOCYTES % (AUTO) 17.6 % (13-45); MEAN CORPUSCULAR HEMOGLOBIN 28.9 pg (27.0-33.4); MEAN CORPUSCULAR HGB CONC 32.9 g/dL (32.0-36.0); MEAN CORPUSCULAR VOLUME 88 fl (80-97); MONOCYTES % (AUTO) 11.6 % (3-13); PLATELET COUNT 232 10^3/uL (150-450); RED BLOOD COUNT 5.08 10^6/uL (3.72-5.28); RED CELL DISTRIBUTION WIDTH 15.8 % (11.5-14.0); SEGMENTED NEUTROPHILS % (AUTO) 65.5 % (42-78); TOTAL CELLS COUNTED % (AUTO) 100 %
--- NOTE | 2018-03-05 12:02 | RADIOLOGY REPORT (SQ) ---
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 NUMBER OF VIEWS: Three views. TECHNIQUE: AP, lateral, and oblique radiographic images acquired of the left ankle. LIMITATIONS: None. FINDINGS: MINERALIZATION: Normal. BONES: No acute fracture or dislocation. No worrisome bone lesions.Small plantar calcaneal spur JOINTS: No effusions. SOFT TISSUES: No soft tissue swelling. No foreign body.Small left lateral malleolar skin ulcer OTHER: No other significant finding. IMPRESSION: Prior small lateral malleolar soft tissue ulcer. No underlying demineralization of the lateral malleolus worrisome for osteomyelitis TECHNICAL DOCUMENTATION: JOB ID: [id number] [employer]- All Rights Reserved Reading location - IP/workstation name: [email or web address]
[2018-03-05 12:09] LABS: ALANINE AMINOTRANSFERASE 20 U/L (9-52); ALBUMIN 3.5 g/dL (3.5-5.0); ALKALINE PHOSPHATASE 87 U/L (38-126); ANION GAP 5 (5-19); ASPARTATE AMINO TRANSFERASE 26 U/L (14-36); BILIRUBIN,DIRECT 0.1 mg/dL (0.0-0.4); BILIRUBIN,TOTAL 0.5 mg/dL (0.2-1.3); BLOOD UREA NITROGEN 18 mg/dL (7-20); C-REACTIVE PROTEIN 9.5 mg/L (<10.0); CALCIUM 9.5 mg/dL (8.4-10.2); CARBON DIOXIDE 38 mmol/L (22-30); CHLORIDE 104 mmol/L (98-107); GLUCOSE 81 mg/dL (75-110); POTASSIUM 4.3 mmol/L (3.6-5.0); SODIUM 146.8 mmol/L (137-145); TOTAL PROTEIN 7.4 g/dL (6.3-8.2)
[2018-03-05 12:19] LABS: ERYTHROCYTE SEDIMENTATION RATE 27 mm/hr (0-30)
== END ==
LOC: WC 10:49
PROVIDERS: ATTEND Nurse Practitioner
DX: L97.322 Non-pressure chronic ulcer of left ankle with fat layer exposed (principal)
CPT/HCPCS: 36415; 80053; 85025; 85652; 86140

== ENCOUNTER → 2018-03-11 | Outpatient (CLI) | payer MEDICARE, OTHER ==
--- NOTE | 2018-03-11 16:47 | XCELERA REPORT ---
[address] [address] Lower Extremity Venous Evaluation Procedure: A bilateral duplex scan of the lower extremity veins was performed. The evaluation included responses to compression and other maneuvers with patient in the supine and standing positions to assess venous insufficiency. Right Sided Venous Evaluation Deep venous system evaluatiion shows patent veins with no obstruction or significant reflux identified. Sapheno Femoral junction: no reflux. Femoral vein reflux: no reflux. Greater Saphenous vein, Proximal thigh: reflux: no reflux. Greater Saphenous vein, Distal thigh: reflux: no reflux. Greater Saphenous vein, Proximal below knee: reflux: no reflux. No significant Perforators identified. Left Sided Venous Evaluation Deep venous system evaluatiion shows patent veins with no obstruction or significant reflux identified. Sapheno Femoral junction: no reflux. Femoral vein reflux: no reflux. Greater Saphenous vein, Proximal thigh: reflux: no reflux. Greater Saphenous vein, Distal thigh: reflux: no reflux. Greater Saphenous vein, Proximal below knee: reflux: no reflux. No significant Perforators identified. Interpretation Summary No duplex evidence of DVT or obstruction in the bilateral lower extremities. No significant deep or superficial reflux noted. Name: JASON ZHENG Age: 87 yrs Gender: Female : 1930 Patient Status: Outpatient Patient Location: Study Date: 03/11/2018 10:58 AM Reason For Study: ULCER Ordering Physician: EFE STALLINGS Performed By: Rajan Logan : EFE STALLINGS > Bg Collins
--- NOTE | 2018-03-12 10:13 | XCELERA REPORT ---
[address] [address] Lower Extremity Arterial Evaluation Name: JASON ZHENG Age: 87 yrs Gender: Female : 1930 Patient Status: Outpatient Patient Location: Study Date: 03/11/2018 10:30 AM Procedure: A color flow and duplex scan of the lower extremity arteries was performed bilaterally with velocity and waveform anaylsis. 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 Biphasic waveforms with PSV ratio of 2 in distal Posterior Tibial. Low normal velocity in the Anterior tibial. Ankle Brachial index declined. Left Side Arterial Evaluation Normal velocity and biphasic waveforms noted from the Common Femoral artery to the infrageniculate vessels . Ankle Brachial index declined. Interpretation Summary Moderate hemodynamically significant findings on the right. Areas of about 50% stenosis in the Femoral and in the Posterior Tibial noted. Mild hemodynamically significant findings suggestive of inflow disease. Further elucidation, if clinically indicated, might be obtained with CTA, or other study. : EFE STALLINGS > Bg Collins
== END ==
LOC: SP 10:06
PROVIDERS: ATTEND Nurse Practitioner
DX: L97.322 Non-pressure chronic ulcer of left ankle with fat layer exposed (principal)
CPT/HCPCS: 93925; 93970

== ENCOUNTER 2018-04-16 09:07 | Inpatient (IN) | payer MEDICARE, OTHER ==
[2018-04-16] MEDS ORDERED: IPRATROPIUM/ALBUTEROL 0.5-2.5 MG/3 ML AMPUL NEB ONE (09:51)
--- NOTE | 2018-04-16 09:51 | ER Document Report ---
ED General - General Chief Complaint: Other Stated Complaint: SHORTNESS OF BREATH Time Seen by Provider: 04/16/18 09:29 Primary Care Provider: EFE STALLINGS NP [Primary Care Provider] - Follow up as needed TRAVEL OUTSIDE OF THE [place] IN LAST 30 DAYS: No - HPI Notes: Patient is a 87-year-old female that presents to the emergency department for chief complaint of hypoxia. Patient was at the wound center getting her left lower extremity wound dressed and was found to be hypoxic in the low 80s. She states she has had some shortness of breath for the last few days. She denies associated diaphoresis, palpitations and coughing. Family states that she had some sinus congestion earlier in the week that was improving. She has not been febrile. She denies history of requiring oxygen in the past or underlying lung disease. She does have a history of [place] and follows with Dr. Doherty. Past Medical History: Hypertension, hyperlipidemia, CAD, depression Past Surgical History: Reviewed in chart Social History: Denies tobacco and alcohol Family History: Reviewed and noncontributory for presenting illness Allergies: Reviewed, see documented allergy list. REVIEW OF SYSTEMS: CONSTITUTIONAL : No fever No chills No diaphoresis No recent illness EENT: No vision changes No congestion No sore throat CARDIOVASCULAR: No chest pain No palpitations RESPIRATORY: shortness of breath No cough No difficulty breathing GASTROINTESTINAL: No abdominal pain No nausea No vomiting No diarrhea GENITOURINARY: No dysuria No hematuria No difficulty urinating MUSCULOSKELETAL: No back pain No leg pain No arm pain SKIN: No rashes No lesions LYMPHATIC: No swollen, enlarged glands. NEUROLOGICAL: No lightheadedness No headache No weakness No paresthesias PSYCHIATRIC: No anxiety No depression PHYSICAL EXAMINATION: Vital signs reviewed, nursing noted reviewed. GENERAL: Somnolent, well-nourished and in no acute distress. HEAD: Atraumatic, normocephalic. EYES: Eyes appear normal, extraocular movements intact, sclera anicteric, conjunctiva are normal. ENT: nares patent, oropharynx clear without exudates. Moist mucous membranes. NECK: Normal range of motion, supple without lymphadenopathy LUNGS: Breath sounds significantly diminished bilaterally to auscultation and equal. No wheezes rales or rhonchi. No tachypnea HEART: Regular rate and rhythm without murmurs ABDOMEN: Soft, nontender, normoactive bowel sounds. No rebound, guarding, or rigidity. No masses appreciated. EXTREMITIES: Nontender, good range of motion, trace pretibial edema NEUROLOGICAL: No focal neurological deficits. Moves all extremities spon taneously Motor and sensory grossly intact on exam. PSYCH: Normal mood, normal affect. SKIN: Warm, Dry, normal turgor, chronic lateral right ankle wound well-healing with no active drainage or bleeding - Related Data Allergies/Adverse Reactions: No Known Allergies Allergy (Unverified 02/16/11 13:43) Past Medical History - Social History Smoking Status: Never Smoker Family History: Reviewed & Not Pertinent - Past Medical History Cardiac Medical History: Reports: Hx Coronary Artery Disease, Hx Heart Attack, Hx Hypercholesterolemia, Hx Hypertension Pulmonary Medical History: Denies: Hx Tuberculosis Neurological Medical History: Reports: Hx Cerebrovascular Accident Renal/ Medical History: Denies: Hx Peritoneal Dialysis GI Medical History: Reports: Hx Gastroesophageal Reflux Disease Musculoskeletal Medical History: Reports Hx Arthritis Psychiatric Medical History: Reports: Hx Depression Past Surgical History: Reports: Hx Hysterectomy, Hx Orthopedic Surgery - left knee replacement. Denies: Hx Pacemaker - Immunizations Hx Diphtheria, Pertussis, Tetanus Vaccination: No Hx Pneumococcal Vaccination: 12/23/10 Physical Exam - Vital signs Vitals: BP 132/72 H 04/16/18 09:11 Course - Re-evaluation Re-evalutation: 04/16/18 09:50 Vitals reviewed. Nursing notes reviewed. Patient is in no acute respiratory distress. She does have significantly diminished lung sounds bilaterally. She is now on nasal cannula oxygen with O2 sats in the mid 90s. Patient's EKG shows diffuse T wave inversions which is new compared to 05/20/17. She denies any active chest pain or chest pain in the last few days. 04/16/18 12:02 Patient's lab work shows hypercapnic respiratory failure. Her CO2 is greater than 70. This may be the cause of her somnolent state. Patient will be placed on BiPAP to assist in her respirations. Her O2 levels were also low. Patient's chest x-ray shows pulmonary vascular congestion and she does have an elevated proBNP. She has no history of congestive heart failure however I suspect she may be developing some heart failure. Patient will be admitted to the hospital for further management. Case discussed with Fariha Solares who accepts admission. Patient's family in agreement with this plan. Laboratory 04/16/18 04/16/18 04/16/18 09:50 09:50 09:50 WBC 4.8 RBC 5.02 Hgb 14.0 Hct 44.3 MCV 88 MCH 27.9 MCHC 31.6 L RDW 16.7 H Plt Count 220 Seg Neutrophils % 69.3 Lymphocytes % 15.0 Monocytes % 10.6 Eosinophils % 3.9 Basophils % 1.2 Absolute Neutrophils 3.3 Absolute Lymphocytes 0.7 Absolute Monocytes 0.5 Absolute Eosinophils 0.2 Absolute Basophils 0.1 Carbonic Acid HCO3/H2CO3 Ratio ABG pH ABG pCO2 ABG pO2 ABG HCO3 ABG Total CO2 ABG O2 Saturation ABG Base Excess FiO2 Sodium 144.3 Potassium 4.7 Chloride 105 Carbon Dioxide 37 H Anion Gap 2 L BUN 18 Creatinine 1.12 Est GFR ( Amer) 56 L Est GFR (Non-Af Amer) 46 L Glucose 92 Calcium 8.7 Total Bilirubin 0.7 Direct Bilirubin 0.2 Neonat Total Bilirubin Not Reportable Neonat Direct Bilirubin Not Reportable Neonat Indirect Bili Not Reportable AST 46 H ALT 40 Alkaline Phosphatase 91 Troponin I 0.018 NT-Pro-B Natriuret Pep 1860 H Total Protein 7.0 Albumin 3.2 L 04/16/18 10:45 WBC RBC Hgb Hct MCV MCH MCHC RDW Plt Count Seg Neutrophils % Lymphocytes % Monocytes % Eosinophils % Basophils % Absolute Neutrophils Absolute Lymphocytes Absolute Monocytes Absolute Eosinophils Absolute Basophils Carbonic Acid 2.13 H HCO3/H2CO3 Ratio 15:1 ABG pH 7.29 L ABG pCO2 70.8 H* ABG pO2 69.8 L ABG HCO3 33.6 H ABG Total CO2 35.8 H ABG O2 Saturation 91.5 L ABG Base Excess 4.5 FiO2 3L Sodium Potassium Chloride Carbon Dioxide Anion Gap BUN Creatinine Est GFR ( Amer) Est GFR (Non-Af Amer) Glucose Calcium Total Bilirubin Direct Bilirubin Neonat Total Bilirubin Neonat Direct Bilirubin Neonat Indirect Bili AST ALT Alkaline Phosphatase Troponin I NT-Pro-B Natriuret Pep Total Protein Albumin Chest X-Ray 04/16/18 09:19 IMPRESSION: Question mild pulmonary edema - Vital Signs Vital signs: Temp Pulse Resp BP Pulse Ox 24 H 151/79 H 95 04/16/18 11:01 04/16/18 11:01 04/16/18 11:01 - Laboratory Result Diagrams: 04/16/18 09:50 04/16/18 09:50 Laboratory results interpreted by me: 04/16/18 04/16/18 04/16/18 09:50 09:50 09:50 MCHC 31.6 L RDW 16.7 H Carbonic Acid ABG pH ABG pCO2 ABG pO2 ABG HCO3 ABG Total CO2 ABG O2 Saturation Carbon Dioxide 37 H Anion Gap 2 L Est GFR ( Amer) 56 L Est GFR (Non-Af Amer) 46 L AST 46 H NT-Pro-B Natriuret Pep 1860 H Albumin 3.2 L 04/16/18 10:45 MCHC RDW Carbonic Acid 2.13 H ABG pH 7.29 L ABG pCO2 70.8 H* ABG pO2 69.8 L ABG HCO3 33.6 H ABG Total CO2 35.8 H ABG O2 Saturation 91.5 L Carbon Dioxide Anion Gap Est GFR ( Amer) Est GFR (Non-Af Amer) AST NT-Pro-B Natriuret Pep Albumin - EKG Interpretation by Me Additional EKG results interpreted by me: 04/16/18 09:50 Interpreted by myself 0925: Normal sinus rhythm, rate 72, normal axis, diffuse T wave inversions new compared to 05/20/17, LAFB, poor R wave progression, no STEMI Critical Care Note - Critical Care Note Total time excluding time spent on procedures (mins): 40 Comments: 40 Minutes of critical care time spent in direct contact evaluating and reevaluating the patient, treating symptoms, reviewing labs and studies and speaking with family and consultants excluding any procedures. Patient required noninvasive ventilation, potential for respiratory decompensation Discharge - Discharge Clinical Impression: Hypoxia, Abnormal EKG Hypercapnic respiratory failure Qualifiers: Chronicity: acute Qualified Code(s): J96.02 - Acute respiratory failure with hypercapnia Pulmonary edema Qualifiers: Chronicity: acute Qualified Code(s): J81.0 - Acute pulmonary edema Altered mental status Qualifiers: Altered mental status type: unspecified Qualified Code(s): R41.82 - Altered mental status, unspecified Condition: Stable Disposition: ADMITTED INPATIENT Admitting Provider: Hospitalist Unit Admitted: ICU
[2018-04-16 10:00] LABS: ABSOLUTE BASOPHILS # (AUTO) 0.1 10^3/uL (0.0-0.2); ABSOLUTE EOSINOPHILS # (AUTO) 0.2 10^3/uL (0.0-0.6); ABSOLUTE LYMPHOCYTES (AUTO) 0.7 10^3/uL (0.5-4.7); ABSOLUTE MONOCYTES (AUTO) 0.5 10^3/uL (0.1-1.4); ABSOLUTE NEUT (AUTO) 3.3 10^3/uL (1.7-8.2); BASOPHILS % (AUTO) 1.2 % (0-2); EOSINOPHILS % (AUTO) 3.9 % (0-6); HEMATOCRIT 44.3 % (36.0-47.0); MEAN CORPUSCULAR HEMOGLOBIN 27.9 pg (27.0-33.4); MEAN CORPUSCULAR HGB CONC 31.6 g/dL (32.0-36.0); MEAN CORPUSCULAR VOLUME 88 fl (80-97); MONOCYTES % (AUTO) 10.6 % (3-13); PLATELET COUNT 220 10^3/uL (150-450); RED BLOOD COUNT 5.02 10^6/uL (3.72-5.28); RED CELL DISTRIBUTION WIDTH 16.7 % (11.5-14.0); SEGMENTED NEUTROPHILS % (AUTO) 69.3 % (42-78); TOTAL CELLS COUNTED % (AUTO) 100 %; WHITE BLOOD COUNT 4.8 10^3/uL (4.0-10.5)
--- NOTE | 2018-04-16 10:13 | RADIOLOGY REPORT (SQ) ---
EXAM DESCRIPTION: CHEST SINGLE VIEW COMPLETED DATE/TIME: 04/16/2018 10:03 am REASON FOR STUDY: sob COMPARISON: Chest film 08/20/2012, 02/18/2011 EXAM PARAMETERS: NUMBER OF VIEWS: One view. TECHNIQUE: Single frontal radiographic view of the chest acquired. RADIATION DOSE: NA LIMITATIONS: None. FINDINGS: LUNGS AND PLEURA: Few Yesi lines at both bases, question mild interstitial edema. No pleural effusion. No pneumothorax. MEDIASTINUM AND HILAR STRUCTURES: No masses. Contour normal. HEART AND VASCULAR STRUCTURES: No cardiomegaly BONES: No acute findings. HARDWARE: None in the chest. OTHER: No other significant finding. IMPRESSION: Question mild pulmonary edema TECHNICAL DOCUMENTATION: JOB ID: [id number] [employer]- All Rights Reserved Reading location - IP/workstation name: [email or web address]
[2018-04-16 10:22] LABS: ALANINE AMINOTRANSFERASE 40 U/L (9-52); ALBUMIN 3.2 g/dL (3.5-5.0); ALKALINE PHOSPHATASE 91 U/L (38-126); ASPARTATE AMINO TRANSFERASE 46 U/L (14-36); BILIRUBIN,DIRECT 0.2 mg/dL (0.0-0.4); BILIRUBIN,TOTAL 0.7 mg/dL (0.2-1.3); BLOOD UREA NITROGEN 18 mg/dL (7-20); CALCIUM 8.7 mg/dL (8.4-10.2); CARBON DIOXIDE 37 mmol/L (22-30); GLUCOSE 92 mg/dL (75-110); POTASSIUM 4.7 mmol/L (3.6-5.0)
[2018-04-16 10:27] LABS: CHLORIDE 105 mmol/L (98-107); SODIUM 144.3 mmol/L (137-145)
[2018-04-16 10:30] LABS: ANION GAP 2 (5-19)
[2018-04-16 10:34] LABS: TROPONIN I 0.018 ng/mL
[2018-04-16 11:10] LABS: ARTERIAL BLOOD BASE EXCESS 4.5 mmol/L; ARTERIAL BLOOD H2CO3 2.13 mmol/L (1.05-1.35); ARTERIAL BLOOD HCO3 33.6 mmol/L (20-24); ARTERIAL BLOOD O2 SATURATION 91.5 % (94-98); ARTERIAL BLOOD PH 7.29 (7.35-7.45); ARTERIAL BLOOD PO2 69.8 mmHg (80-100); ARTERIAL BLOOD TOTAL CO2 35.8 mmol/L (21-25)
[2018-04-16 11:12] LABS: ARTERIAL BLOOD FIO2 3L
[2018-04-16 11:14] LABS: ARTERIAL BLOOD PCO2 70.8 mmHg (35-45)
[2018-04-16] MEDS ORDERED: ASPIRIN 81 MG TABLET, CHEWABLE PO SCH (13:30)
[2018-04-16] MEDS ORDERED: FUROSEMIDE INJ/PF 100 MG/10 ML SDV IV ONE ×3 (13:45→22:00)
[2018-04-16 14:10] LABS: APPEARANCE,URINE CLEAR; BILIRUBIN,URINE NEGATIVE (NEGATIVE); COLOR,URINE YELLOW; GLUCOSE, URINE NEGATIVE (NEGATIVE); KETONES,URINE NEGATIVE (NEGATIVE); LEUKOCYTE ESTERASE,URINE NEGATIVE (NEGATIVE); NITRITE,URINE NEGATIVE (NEGATIVE); PROTEIN,URINE NEGATIVE (NEGATIVE)
[2018-04-16 15:30] LABS: ARTERIAL BLOOD BASE EXCESS 7.1 mmol/L; ARTERIAL BLOOD H2CO3 2.31 mmol/L (1.05-1.35); ARTERIAL BLOOD HCO3 36.8 mmol/L (20-24); ARTERIAL BLOOD O2 SATURATION 89.6 % (94-98); ARTERIAL BLOOD TOTAL CO2 39.1 mmol/L (21-25)
[2018-04-16 15:36] LABS: ARTERIAL BLOOD FIO2 30%
[2018-04-16 15:37] LABS: ARTERIAL BLOOD PCO2 76.8 mmHg (35-45)
[2018-04-16] MEDS ORDERED: METHYLPREDNISOLONE INJ 125 MG/2 ML SDV IV ONE (16:09)
[2018-04-16] MEDS ORDERED: LEVALBUTEROL HCL NEB 1.25 MG/3 ML AMPUL NEB PRN (16:10)
--- NOTE | 2018-04-16 16:42 | PDOC H&P ---
History of Present Illness Admission Date/PCP: 04/16/18 12:21 EFE STALLINGS NP Patient complains of: Shortness of breath History of Present Illness: JASON ZHENG is a 87 year old female who presented with shortness of breath, lethargy and ataxia. According to the patient's , her symptoms began 3 days ago. He states that the patient has been increasingly 'sleepy' and has required the use of a cane when ambulating. Additionally, the patient has been complaining that she has had a difficult time breathing. Of note, the patient has been admitted for shortness of breath multiple times in the past -mostly stemming from CHF or COPD exacerbations. Upon arrival to the emergency department, patient's EKG shows normal sinus rhythm. No evidence of acute infarction or ischemia. CXR demonstrates a few Yesi B lines at both bases, questionable interstitial edema. No other abnormal findings. Laboratory studies are relatively unremarkable, cardiac enzymes within normal limits. ABG demonstrates respiratory acidosis (PH 7.29 PCO2 70). The patient was placed on BiPAP and nebulizer treatment was initiated by ER physician. Upon assessment, the patient is resting comfortably in bed on BiPAP. She is able to answer questions appropriately using 2-3 word phrases. Her mostly provides history. The patient does not appear to be in respiratory distress, she is breathing comfortably on BiPAP. Lungs are clear to auscultation. No evidence of central or peripheral cyanosis. The patient states she feels 'better'she is on BiPAP. According to the patient's , she appears slightly lethargic when compared to her baseline. Given the patient's tenuous respiratory status, plan to admit to ICU. Consult pulmonary and cardiology. Past Medical History Cardiac Medical History: Reports: Coronary Artery Disease, Myocardial Infarction, Hyperlipidema, Hypertension Pulmonary Medical History: Denies: Tuberculosis GI Medical History: Reports: Gastroesophageal Reflux Disease Musculoskeltal Medical History: Reports: Arthritis Psychiatric Medical History: Reports: Depression, General Anxiety Disorder Past Surgical History Past Surgical History: Reports: Hysterectomy, Orthopedic Surgery - left knee replacement Denies: Pacemaker Social History Information Source: Patient Lives with: Spouse/Significant other Smoking Status: Former Smoker Number of Years Smokin Last Time Smoked: 10 YRS AGO Frequency of Alcohol Use: None Hx Recreational Drug Use: No Drugs: None Hx Prescription Drug Abuse: No Family History Family History: CAD, DM Parental Family History Reviewed: Yes Children Family History Reviewed: Unknown Sibling(s) Family History Reviewed.: Unknown Medication/Allergy Home Medications: Alprazolam [Xanax 0.5 mg Tablet] 0.5 mg PO Q8HP PRN MDD 3 mg 05/20/17 Fluoxetine HCl [Prozac] 40 mg PO DAILY 05/20/17 Risperidone [Risperdal 1 mg Tablet] 1 mg PO QHS 05/20/17 Amlodipine Besylate [Norvasc 5 mg Tablet] 5 mg PO DAILY 2 Days #30 tablet 05/23/17 Lisinopril [Prinivil 10 mg Tablet] 10 mg PO DAILY #30 tablet 05/23/17 Aspirin [Adult Low Dose Aspirin EC] 162 mg PO DAILY 04/16/18 Atorvastatin Calcium [Lipitor 40 mg Tablet] 40 mg PO QHS 04/16/18 Collagenase Clostridium Hist. [Santyl Ointment 30 gm] 1 applic TP DAILY 04/16/18 Ezetimibe [Zetia 10 mg Tablet] 10 mg PO DAILY 04/16/18 Furosemide [Lasix 20 mg Tablet] 20 mg PO QAM 04/16/18 Hydroxyzine Pamoate [Vistaril 25 mg Capsule] 25 mg PO QHS 04/16/18 Mirabegron [Myrbetriq] 50 mg PO DAILY 04/16/18 Omeprazole 20 mg PO BID 04/16/18 Allergies/Adverse Reactions: No Known Allergies Allergy (Unverified 04/16/18 16:39) Review of Systems Eyes: ABSENT: as per HPI, visual disturbances, other Ears: ABSENT: as per HPI, hearing changes, other Nose, Mouth, and Throat: PRESENT: other - NASAL CONGESTION Cardiovascular: ABSENT: chest pain, palpitations Respiratory: PRESENT: cough, dyspnea Gastrointestinal: ABSENT: as per HPI, abdominal pain, bloating, coffee ground emesis, constipation, diarrhea, dysphagia, heartburn, hematemesis, hematochezia, melena, nausea, vomiting, other Genitourinary: PRESENT: difficulty urinating Physical Exam Vital Signs: Temp Pulse Resp BP Pulse Ox 20 133/74 H 87 L 04/16/18 15:01 04/16/18 15:01 04/16/18 15:01 Intake & Output 04/15/18 04/16/18 04/17/18 06:59 06:59 06:59 Weight 64.864 kg General appearance: PRESENT: mild distress - REQUIRING BIPAP Eye exam: PRESENT: conjunctiva pink, PERRLA Mouth exam: PRESENT: moist Neck exam: PRESENT: full ROM Respiratory exam: PRESENT: clear to auscultation juanjose, symmetrical. ABSENT: tachypnea Cardiovascular exam: PRESENT: +S1, +S2 Pulses: PRESENT: normal radial pulses, normal dorsalis pedis pul Vascular exam: PRESENT: normal capillary refill GI/Abdominal exam: PRESENT: soft. ABSENT: distended, tenderness Rectal exam: PRESENT: deferred Gentrourinary exam: PRESENT: indwelling catheter - PLACED IN ED Extremities exam: PRESENT: pedal edema, +1 edema Musculoskeletal exam: PRESENT: ambulatory - WITH CANE Neurological exam: PRESENT: alert, awake, oriented to person, oriented to place, oriented to time, oriented to situation Psychiatric exam: PRESENT: appropriate affect Skin exam: PRESENT: dry, intact, normal color Results Laboratory Results: 04/16/18 09:50 04/16/18 09:50 04/16/18 04/16/18 04/16/18 09:50 09:50 10:45 WBC 4.8 RBC 5.02 Hgb 14.0 Hct 44.3 MCV 88 MCH 27.9 MCHC 31.6 L RDW 16.7 H Plt Count 220 Seg Neutrophils % 69.3 Lymphocytes % 15.0 Monocytes % 10.6 Eosinophils % 3.9 Basophils % 1.2 Absolute Neutrophils 3.3 Absolute Lymphocytes 0.7 Absolute Monocytes 0.5 Absolute Eosinophils 0.2 Absolute Basophils 0.1 Carbonic Acid 2.13 H HCO3/H2CO3 Ratio 15:1 ABG pH 7.29 L ABG pCO2 70.8 H* ABG pO2 69.8 L ABG HCO3 33.6 H ABG O2 Saturation 91.5 L ABG Base Excess 4.5 FiO2 3L Sodium 144.3 Potassium 4.7 Chloride 105 Carbon Dioxide 37 H Anion Gap 2 L BUN 18 Creatinine 1.12 Est GFR ( Amer) 56 L Est GFR (Non-Af Amer) 46 L Glucose 92 Calcium 8.7 Total Bilirubin 0.7 AST 46 H ALT 40 Alkaline Phosphatase 91 Total Protein 7.0 Albumin 3.2 L Urine Color Urine Appearance Urine pH Ur Specific [place] Urine Protein Urine Glucose (UA) Urine Ketones Urine Blood Urine Nitrite Ur Leukocyte Esterase Urine WBC (Auto) Urine RBC (Auto) 01/23/19 01/23/19 14:00 14:17 WBC RBC Hgb Hct MCV MCH MCHC RDW Plt Count Seg Neutrophils % Lymphocytes % Monocytes % Eosinophils % Basophils % Absolute Neutrophils Absolute Lymphocytes Absolute Monocytes Absolute Eosinophils Absolute Basophils Carbonic Acid 2.31 H HCO3/H2CO3 Ratio 15:1 ABG pH 7.30 L ABG pCO2 76.8 H* ABG pO2 65.0 L ABG HCO3 36.8 H ABG O2 Saturation 89.6 L ABG Base Excess 7.1 FiO2 30% Sodium Potassium Chloride Carbon Dioxide Anion Gap BUN Creatinine Est GFR ( Amer) Est GFR (Non-Af Amer) Glucose Calcium Total Bilirubin AST ALT Alkaline Phosphatase Total Protein Albumin Urine Color YELLOW Urine Appearance CLEAR Urine pH 5.0 Ur Specific [place] 1.020 Urine Protein NEGATIVE Urine Glucose (UA) NEGATIVE Urine Ketones NEGATIVE Urine Blood NEGATIVE Urine Nitrite NEGATIVE Ur Leukocyte Esterase NEGATIVE Urine WBC (Auto) 1 Urine RBC (Auto) 1 04/16/18 09:50 Troponin I 0.018 NT-Pro-B Natriuret Pep 1860 H Impressions: Chest X-Ray 04/16/18 09:19 IMPRESSION: Question mild pulmonary edema Status: Imported from PACS Assessment & Plan - Diagnosis (1) Hypercapnic respiratory failure Qualifiers: Chronicity: acute Qualified Code(s): J96.02 - Acute respiratory failure with hypercapnia Is this a current diagnosis for this admission?: Yes Plan: Secondary to CHF and/or COPD exacerbation Previous hospitalizations at [facility] for similar complaint CXR demonstrates bilateral pleural effusions ABG shows respiratory acidosis Continue BiPAP Consult pulmonology Consult cardiology Patient may require intubation if patient becomes more somnolent (2) COPD with exacerbation Is this a current diagnosis for this admission?: Yes Plan: [id number] smoking history Continue BiPAP for hypercapnic respiratory failure ABG in a.m. DuoNeb treatments as needed 125 mg Solu-Medrol IV administered in ED Solu-Medrol 40 mg IV every 6 hours Doxycycline for antibiotic prophylaxis (3) Acute on chronic diastolic CHF (congestive heart failure) Is this a current diagnosis for this admission?: Yes Plan: Evidence of volume overload secondary to CHF exacerbation Lower extremity pitting edema and bilateral pleural effusions noted on CXR Initial dose of Lasix administered in ED Continue with daily IV Lasix Consult cardiology Previous echo from April 2017 reveals grade 2 diastolic dysfunction, normal EF. Echocardiogram ordered in light of acute symptoms - Time Time Spent: 50 to 70 Minutes Critical Time spent with patient: 15-24 minutes - Inpatient Certification Based on my medical assessment, after consideration of the patient's comorbidities, presenting symptoms, or acuity I expect that the services needed warrant INPATIENT care.: Yes I certify that my determination is in accordance with my understanding of Medicare's requirements for reasonable and necessary INPATIENT services [42 CFR 412.3e].: Yes Medical Necessity: Risk of Complication if Not Cared For in Hospital - Plan Summary Plan Summary: BIPAP. DIURETICS. NEBS. STEROIDS.
[2018-04-16 17:23] LABS: CREATINE KINASE MB 1.22 ng/mL (<4.55); TROPONIN I 0.016 ng/mL
[2018-04-16] MEDS: LANSOPRAZOLE 15 MG TAB.RAP.DR PO SCH (18:19)
[2018-04-16] MEDS: FLUOXETINE HCL 20 MG CAPSULE PO SCH (18:19)
[2018-04-16 21:28] LABS: ARTERIAL BLOOD BASE EXCESS 8.4 mmol/L; ARTERIAL BLOOD H2CO3 2.38 mmol/L (1.05-1.35); ARTERIAL BLOOD HCO3 38.5 mmol/L (20-24); ARTERIAL BLOOD O2 SATURATION 92.3 % (94-98); ARTERIAL BLOOD PH 7.31 (7.35-7.45); ARTERIAL BLOOD PO2 72.1 mmHg (80-100); ARTERIAL BLOOD TOTAL CO2 40.9 mmol/L (21-25)
[2018-04-16 21:32] LABS: ARTERIAL BLOOD FIO2 30%
[2018-04-16 21:34] LABS: ARTERIAL BLOOD PCO2 79.1 mmHg (35-45)
[2018-04-16] MEDS: BUDESONIDE NEB 0.5 MG/2 ML AMPUL NEB SCH (21:36)
[2018-04-16] MEDS: IPRATROPIUM/ALBUTEROL 0.5-2.5 MG/3 ML AMPUL NEB PRN (21:36)
[2018-04-16] MEDS: METHYLPREDNISOLONE INJ 40 MG/1 ML SDV IV SCH (22:24)
[2018-04-16] MEDS: ATORVASTATIN CALCIUM 40 MG TABLET PO SCH (22:25)
[2018-04-16] MEDS: DOXYCYCLINE HYCLATE 100 MG TABLET PO SCH (22:25)
[2018-04-16] MEDS: HYDROXYZINE PAMOATE 25 MG CAPSULE PO SCH (22:25)
[2018-04-16 22:59] LABS: CREATINE KINASE MB 1.22 ng/mL (<4.55); TROPONIN I 0.013 ng/mL
[2018-04-17 04:52] LABS: ARTERIAL BLOOD BASE EXCESS 6.7 mmol/L; ARTERIAL BLOOD H2CO3 2.15 mmol/L (1.05-1.35); ARTERIAL BLOOD HCO3 35.7 mmol/L (20-24); ARTERIAL BLOOD PH 7.32 (7.35-7.45); ARTERIAL BLOOD PO2 73.6 mmHg (80-100); ARTERIAL BLOOD TOTAL CO2 37.9 mmol/L (21-25)
[2018-04-17 04:53] LABS: ARTERIAL BLOOD FIO2 28%
[2018-04-17 04:54] LABS: ARTERIAL BLOOD PCO2 71.3 mmHg (35-45)
[2018-04-17] MEDS: LANSOPRAZOLE 15 MG TAB.RAP.DR PO SCH ×2 (05:28→18:29)
[2018-04-17] MEDS: METHYLPREDNISOLONE INJ 40 MG/1 ML SDV IV SCH ×3 (05:28→22:20)
[2018-04-17 05:32] LABS: ABSOLUTE LYMPHOCYTES (AUTO) 0.3 10^3/uL (0.5-4.7); ABSOLUTE NEUT (AUTO) 4.3 10^3/uL (1.7-8.2); BASOPHILS % (AUTO) 0.2 % (0-2); HEMATOCRIT 46.4 % (36.0-47.0); HEMOGLOBIN 14.7 g/dL (12.0-15.5); LYMPHOCYTES % (AUTO) 7.2 % (13-45); MEAN CORPUSCULAR HEMOGLOBIN 27.7 pg (27.0-33.4); MEAN CORPUSCULAR HGB CONC 31.6 g/dL (32.0-36.0); MEAN CORPUSCULAR VOLUME 88 fl (80-97); MONOCYTES % (AUTO) 0.6 % (3-13); PLATELET COUNT 239 10^3/uL (150-450); RED CELL DISTRIBUTION WIDTH 16.5 % (11.5-14.0); TOTAL CELLS COUNTED % (AUTO) 100 %; WHITE BLOOD COUNT 4.7 10^3/uL (4.0-10.5)
[2018-04-17 05:47] LABS: ALANINE AMINOTRANSFERASE 36 U/L (9-52); ALBUMIN 3.3 g/dL (3.5-5.0); ALKALINE PHOSPHATASE 100 U/L (38-126); ANION GAP 9 (5-19); ASPARTATE AMINO TRANSFERASE 30 U/L (14-36); BILIRUBIN,DIRECT 0.3 mg/dL (0.0-0.4); BILIRUBIN,TOTAL 0.8 mg/dL (0.2-1.3); BLOOD UREA NITROGEN 20 mg/dL (7-20); CARBON DIOXIDE 34 mmol/L (22-30); CHLORIDE 101 mmol/L (98-107); GLUCOSE 114 mg/dL (75-110); POTASSIUM 4.5 mmol/L (3.6-5.0); SODIUM 143.6 mmol/L (137-145); TOTAL PROTEIN 7.1 g/dL (6.3-8.2)
[2018-04-17 05:59] LABS: CREATINE KINASE MB 0.86 ng/mL (<4.55); TROPONIN I 0.012 ng/mL
--- NOTE | 2018-04-17 08:01 | EKG REPORT ---
SEVERITY:- ABNORMAL ECG - SINUS RHYTHM ATRIAL PREMATURE COMPLEX PROBABLE LEFT ATRIAL ABNORMALITY LAD, CONSIDER LEFT ANTERIOR FASCICULAR BLOCK BORDERLINE R WAVE PROGRESSION, ANTERIOR LEADS NONSPECIFIC T ABNORMALITIES, DIFFUSE LEADS : Confirmed by: Krupa Ramsay MD 17-Apr-2018 08:00:31
--- NOTE | 2018-04-17 08:01 | EKG REPORT ---
SEVERITY:- ABNORMAL ECG - SINUS RHYTHM ATRIAL PREMATURE COMPLEX LEFT ANTERIOR FASCICULAR BLOCK CONSIDER ANTEROSEPTAL INFARCT NONSPECIFIC T ABNORMALITIES, DIFFUSE LEADS BORDERLINE PROLONGED QT INTERVAL : Confirmed by: Krupa Ramsay MD 17-Apr-2018 08:00:26
[2018-04-17] MEDS: BUDESONIDE NEB 0.5 MG/2 ML AMPUL NEB SCH ×2 (08:15→19:45)
[2018-04-17] MEDS: IPRATROPIUM/ALBUTEROL 0.5-2.5 MG/3 ML AMPUL NEB PRN ×2 (08:15→19:45)
[2018-04-17] MEDS: FLUOXETINE HCL 20 MG CAPSULE PO SCH (09:47)
[2018-04-17] MEDS: LISINOPRIL 10 MG TABLET PO SCH (09:47)
[2018-04-17] MEDS: ENOXAPARIN SODIUM INJ 30 MG/0.3 ML DISP.SYRIN SUBCUT SCH (09:48)
[2018-04-17] MEDS: ALPRAZOLAM 0.5 MG TABLET PO PRN (09:48)
[2018-04-17] MEDS: DOXYCYCLINE HYCLATE 100 MG TABLET PO SCH ×2 (09:48→22:20)
[2018-04-17] MEDS: ASPIRIN 81 MG TABLET, ENT COATED PO SCH (09:48)
[2018-04-17] MEDS: EZETIMIBE 10 MG TABLET PO SCH (09:48)
[2018-04-17] MEDS: AMLODIPINE BESYLATE 5 MG TABLET PO SCH (09:48)
[2018-04-17] MEDS ORDERED: FUROSEMIDE 40 MG TABLET PO SCH (10:00)
[2018-04-17] MEDS ORDERED: FUROSEMIDE INJ/PF 40 MG/4 ML SDV IV SCH (10:00)
[2018-04-17] MEDS ORDERED: (PENDING PHARMACY ID) (Mirabegron [Myrbetriq] 50 MG) PO SCH (10:00)
[2018-04-17] MEDS ORDERED: FUROSEMIDE INJ/PF 40 MG/4 ML SDV IV ONE ×2 (12:51)
--- NOTE | 2018-04-17 14:38 | CONSULTATION REPORT E ---
Consultation Report NAME: JASON ZHENG : 1930 AGE: 87Y DATE: 04/16/2018 603 A TO: SHERRY CANELA M.D. FROM: MARQUITA WATERS MD Requesting Physician CHIEF COMPLAINT: Shortness of breath, suspect heart failure. HISTORY OF PRESENT ILLNESS: This 87-year-old black female [facility] when she started getting very short of breath. She was then brought to the ER where upon her arterial blood gases showed a PCO2 of 70.8 and PO2 of 70, CO2 of 36 and a pH of 7.29. The chest x-ray showed questionable pulmonary edema, which I disagree. Nevertheless, the patient was put on BiPAP ventilation and then brought to the ICU for further care. History from the is that patient had been increasingly short of breath for at least 3 days, had been getting more and more lethargic and somewhat ataxic. When she was in the ER, she clearly was in moderate CO2 narcosis. Other relevant laboratory tests while in the ER showed her to have a BUN of 18, creatinine 1.12, sodium 144, potassium 4.7, and the estimated GFR was 56 mL per minute. Her hemoglobin was 14, white cell count was 4.8 and platelets were 220,000. Her NT BNP was 1860, which was not that much elevated for someone who exceeds age 78 (patient age 87). The 12-lead EKG showed old anterior WI and there were new T-inversions in leads V1-V6 compared to the last EKG. The patient's cardiac history consisted of an old myocardial infarction involving the anterolateral wall in 1990 when she first became my patient. By cath, the patient had a total occlusion of the LAD, 70% ostial lesion in the diagonal 2, 90% stenosis of the distal PDA, and 40% stenosis of the RCA in 2003. In the last 28 years, the patient had managed to do well with respect to her heart. She has never complained of any chest pains due to her debilitated state from a stroke. The last stress MPI test showed no reversible ischemia and no fixed perfusion defect and would have been called normal were it not for the fact that the TID ratio was slightly elevated at 1.15, the post stress ejection fraction was 65%. Her LDL has been controlled between 60-80 on Lipitor 40 mg with Zetia 10 mg over the years. Her most recent echo was in July of 2017 and this showed non-stenotic calcific aortic valvular disease with noncoronary calcification, there was no aortic stenosis, but there was mild aortic regurgitation with PHT 768 msec and no left ventricular enlargement. She had trace mitral regurgitation, no left atrial enlargement, mild asymmetric septal hypertrophy with ventricular septum measuring 13 mm versus posterior wall measuring 10 mm and normal LVEF of 60% with stage 1 left ventricular diastolic dysfunction. Segmental disease in the LV consisted of a hypokinetic IVS and basal lateral wall hypokinesis. Her right ventricular systolic pressure was not high and it was 24 with an estimated right atrial pressure of 3. PAST MEDICAL HISTORY: Further relevant medical problems include: 1. Hypertension. 2. Hypercholesterolemia. 3. Chronic kidney disease stage 3. She also has been having a problem with shortness of breath and my workup in October 2016 showed no evidence that this is caused by cardiac etiology, i.e. no left ventricular systolic dysfunction, although there was mild stage 1 left ventricular diastolic dysfunction. In those days, her NT proBNP was 443, which was normal. She was not hypothyroid. Her magnesium level was 2.0 and normal, but she did have intermittent leg edema, perhaps from her lung disease. She was supposed to be checked by art gallery director, but whether or not her family got her to one or not, I am not certain. Her PCM is Dr. Jarrett and he was supposed to make that referral. Her blood pressure has been under control most of the time and the most recent office blood pressure showed 124/72 on lisinopril 10 mg daily and amlodipine 5 mg daily. The patient is also on aspirin 81 mg daily for secondary prevention of coronary artery disease, stroke as well as nitroglycerin p.r.n. CURRENT MEDICATIONS: Include: 1. Lisinopril 10 mg daily. 2. Aspirin 81 mg daily. 3. Nitroglycerin 0.4 mg p.r.n. 4. Furosemide 20 mg daily. 5. Lexapro 40 mg daily. 6. Zetia 10 mg daily. 7. Amlodipine 5 mg daily. 8. Omeprazole. There is a history of noncompliance with medications, intermittent pill count from her medicine bottle show excessive number of pills Lasix, versus the dispense date. The patient's was put on notice to please assist her with medications, but whether that comes to any fruition, I have no idea. ALLERGIES: 1. ACETAMINOPHEN. 2. HYDROCODONE. 3. METOPROLOL (BRADYCARDIA SIDE EFFECT). 4. BACITRACIN OINTMENT. PHYSICAL EXAMINATION: GENERAL: Showed patient to be sleeping in the ICU with a blood pressure of 120/71, respiratory rate of 21 BPM on BiPAP and a heart rate of 72 per minute with no atrial or ventricular ectopy. HEENT: A normocephalic skull. Pupils equal and reactive to light and accommodation. Patient is wearing a BiPAP mask. Ears, nose and throat were normal. NECK: Supple. JVP was distended. No thyromegaly. HEART: Examination of the heart showed PMI not palpable. JVP distended. There was no carotid bruit. No vertebral bruit. S4 was present. S1 normal. S2 normal. No S3. A grade 2/6 systolic ejection murmur was heard in the left sternal border. LUNGS: Very poor air entry despite the use of BiPAP. Unable to hear any breath sounds in both bases. ABDOMEN: No obesity, no distention, no hepatosplenomegaly and scant bowel sounds. EXTREMITIES: No pitting edema, but patient has been supine in bed for several hours. She had no sacral edema, however on examination. Peripheral pulses were palpable. NEUROLOGICAL: The patient appears to be intact and responding to voice and recognizes me as her physician. Laboratory testing, chest x-ray and EKG were all dictated in the HPI section. Please refer to above. ASSESSMENT: 1. Shortness of breath. The patient clearly had CO2 narcosis on admission. Any component of congestive heart failure is minor. An echocardiogram should be repeated to assess LVEF, left ventricular diastolic dysfunction and to make sure there are no changes since her echo from 6 months ago. Use of IV Lasix should be cautious. Otherwise, the patient may be driven into ARF by too aggressive diuresis and this will cause bronchial secretion inspissation further aggravating her exacerbation of her COPD. 2. Abnormal ECG. There is widespread T inversion in the anterior precordial leads, this is new compared to the last EKG and therefore it is possible that because of hypoxemia in the last few days from her CO2 narcosis, that she may show ischemia, given the fact that her last WI was in 1990. It is also recalled that in the most recent echo that there were significant calcifications at the ostia of the left main. Therefore, any trend to increasing troponin I should trigger left heart catheterization to R/O left main stenosis since patient has an abnormal transient ischemic dilatation ratio on her stress MPI, 1.15. 3. CKD 3. 4. Hypercholesterolemia, under control. 5. Hypertension, under control. Will follow the patient with you, orders have been written. DICTATING PHYSICIAN: SHERRY CANELA M.D. [id number] PHY#: [id number] ID: [id number] JOB#: [id number] ACCT: [id number] cc:SHERRY CANELA M.D. > MTDD
--- NOTE | 2018-04-17 16:47 | PDOC PROGRESS REPORT ---
Subjective Progress Note for:: 04/17/18 Subjective:: JASON ZHENG is a 87 year old female who presented with shortness of breath, lethargy and ataxia. She was admitted for AMS secondary to CHF vs. COPD exacerbation. Patient was seen this morning on rounds. She is much more awake and alert when compared to yesterday's presentation. She is able to answer all questions appropriately, she speaks in full sentences. The patient states she feels that her breathing is 'better.' ABG this morning is marginally improved, still demonstrating respiratory acidosis. Hypercapnia mildly improved. Plan for BiPAP weaning today, allow for use of nasal cannula at mealtime, placing patient back on BiPAP in between meals. Plan to continue BIPAP, recheck ABG in AM. Patient's respiratory status has stabilized to a point where she no longer requires ICU level care. Plan to downgrade to IMCU. Reason For Visit: HYPERCAPNIC RESPIRATORY FAILURE,HYPOXIA,PULMONARY Physical Exam Vital Signs: Temp Pulse Resp BP Pulse Ox 99.3 F 67 19 112/52 L 97 04/17/18 15:00 04/17/18 12:00 04/17/18 15:00 04/17/18 14:54 04/17/18 15:00 Intake & Output 04/16/18 04/17/18 04/18/18 06:59 06:59 06:59 Output Total 2455 650 Balance -2455 -650 Weight 65.8 kg General appearance: PRESENT: no acute distress Eye exam: PRESENT: conjunctiva pink, PERRLA Mouth exam: PRESENT: moist Neck exam: ABSENT: carotid bruit Respiratory exam: PRESENT: clear to auscultation juanjose, symmetrical, unlabored Cardiovascular exam: PRESENT: +S1, +S2, other - inverted T waves on EKG Vascular exam: PRESENT: normal capillary refill GI/Abdominal exam: PRESENT: soft. ABSENT: tenderness Rectal exam: PRESENT: deferred Extremities exam: PRESENT: full ROM Musculoskeletal exam: PRESENT: full ROM. ABSENT: ambulatory Neurological exam: PRESENT: alert, awake, oriented to person, oriented to place, oriented to time, oriented to situation Psychiatric exam: PRESENT: appropriate affect Skin exam: PRESENT: dry, intact, normal color Results Laboratory Results: 04/17/18 04:43 04/17/18 04:43 04/16/18 04/17/18 04/17/18 21:13 04:38 04:43 WBC 4.7 RBC 5.30 H Hgb 14.7 Hct 46.4 MCV 88 MCH 27.7 MCHC 31.6 L RDW 16.5 H Plt Count 239 Seg Neutrophils % 92.0 H Lymphocytes % 7.2 L Monocytes % 0.6 L Eosinophils % 0.0 Basophils % 0.2 Absolute Neutrophils 4.3 Absolute Lymphocytes 0.3 L Absolute Monocytes 0.0 L Absolute Eosinophils 0.0 Absolute Basophils 0.0 Carbonic Acid 2.38 H 2.15 H HCO3/H2CO3 Ratio 16:1 16:1 ABG pH 7.31 L 7.32 L ABG pCO2 79.1 H* 71.3 H* ABG pO2 72.1 L 73.6 L ABG HCO3 38.5 H 35.7 H ABG O2 Saturation 92.3 L 93.0 L ABG Base Excess 8.4 6.7 FiO2 30% 28% Sodium Potassium Chloride Carbon Dioxide Anion Gap BUN Creatinine Est GFR ( Amer) Est GFR (Non-Af Amer) Glucose Calcium Magnesium Total Bilirubin AST ALT Alkaline Phosphatase Total Protein Albumin TSH 04/17/18 04/17/18 04:43 04:43 WBC RBC Hgb Hct MCV MCH MCHC RDW Plt Count Seg Neutrophils % Lymphocytes % Monocytes % Eosinophils % Basophils % Absolute Neutrophils Absolute Lymphocytes Absolute Monocytes Absolute Eosinophils Absolute Basophils Carbonic Acid HCO3/H2CO3 Ratio ABG pH ABG pCO2 ABG pO2 ABG HCO3 ABG O2 Saturation ABG Base Excess FiO2 Sodium 143.6 Potassium 4.5 Chloride 101 Carbon Dioxide 34 H Anion Gap 9 BUN 20 Creatinine 0.96 Est GFR ( Amer) > 60 Est GFR (Non-Af Amer) 55 L Glucose 114 H Calcium 9.0 Magnesium 1.9 Total Bilirubin 0.8 AST 30 ALT 36 Alkaline Phosphatase 100 Total Protein 7.1 Albumin 3.3 L TSH 0.49 04/16/18 04/16/18 04/16/18 09:50 16:28 22:25 CK-MB (CK-2) 1.22 1.22 Troponin I 0.018 0.016 0.013 NT-Pro-B Natriuret Pep 1860 H 04/17/18 04/17/18 04:43 04:43 CK-MB (CK-2) 0.86 Troponin I 0.012 NT-Pro-B Natriuret Pep 989 H Impressions: Chest X-Ray 04/16/18 09:19 IMPRESSION: Question mild pulmonary edema Status: Imported from PACS Assessment & Plan - Diagnosis (1) Hypercapnic respiratory failure Qualifiers: Chronicity: acute Qualified Code(s): J96.02 - Acute respiratory failure with hypercapnia Is this a current diagnosis for this admission?: Yes Plan: Secondary to CHF and/or COPD exacerbation Previous hospitalizations at [facility] for similar complaint CXR demonstrates bilateral pleural effusions ABG continues to show respiratory acidosis - PCO2 > 70. PH 7.32 Continue BiPAP - can wean to QHS and in between meals. Allow for patient to wear nasal cannula at mealtime. Consult pulmonology Consult cardiology (Dr. Doherty) (2) COPD with exacerbation Is this a current diagnosis for this admission?: Yes Plan: [id number] smoking history Continue BiPAP for hypercapnic respiratory failure ABG in a.m. DuoNeb treatments as needed Solu-Medrol 40 mg IV every 6 hours Doxycycline for antibiotic prophylaxis (3) Acute on chronic diastolic CHF (congestive heart failure) Is this a current diagnosis for this admission?: Yes Plan: Evidence of volume overload secondary to CHF exacerbation Lower extremity pitting edema and bilateral pleural effusions noted on CXR Initial dose of Lasix administered in ED PO Lasix daily Consult cardiology Previous echo from April 2017 reveals grade 2 diastolic dysfunction, normal EF. Echocardiogram ordered in light of acute symptoms. Results pending. (4) T wave inversion in EKG Is this a current diagnosis for this admission?: Yes Plan: Widespread T wave inversion in the anterior precordial leads This is new compared to previous EKGs Ischemia could be secondary to hypoxemia in light of her CO2 narcosis Cardiac enzymes negative, no longer need to trend at this time - Time Time Spent with patient: 15-24 minutes Medications reviewed and adjusted accordingly: Yes Anticipated discharge: Home - Inpatient Certification Based on my medical assessment, after consideration of the patient's comorbidities, presenting symptoms, or acuity I expect that the services needed warrant INPATIENT care.: Yes I certify that my determination is in accordance with my understanding of Medicare's requirements for reasonable and necessary INPATIENT services [42 CFR 412.3e].: Yes Medical Necessity: Need For Continuous Telemetry Monitoring, Need for Nebulizer Therapy and Monitoring of Response, Risk of Complication if Not Cared For in Hospital - Plan Summary Plan Summary: Echocardiogram results pending. Downgrade to [facility].
--- NOTE | 2018-04-17 18:16 | XCELERA REPORT ---
[address] [address] Transthoracic Echocardiogram Report Name: JASON ZHENG Age: 87 yrs Gender: Female : 1930 Patient Status: Inpatient Patient Location: ICU^603^A Study Date: 04/17/2018 10:29 AM Height: 62 in Weight: 145 lb BSA: 1.7 m2 Reason For Study: IVC with Collapse JOHN LVESD LVEDD PITER Ordering Physician: SHERRY CANELA Performed By: Anabel Morgan Interpretation Summary Small post pericardial effusion. Mild NSCAVD withno , normal 3 cusps AV, trace AR. Mild MAC with no MS, no MVP, trace MR and no LA enlargement. No LVH hypokinetic IVS, and inferoseptal wall. Normal LVEF 65% with stage I LV diastolic dysfunction. No LV enlargement. Mild TR with mod pulm hypertension RVSP 55 mm Hg, RAP 15. MMode/2D Measurements & Calculations RVDd: 3.6 cm LVIDd: 3.9 cm FS: 41.6 % Ao root diam: 2.8 cm IVSd: 0.75 cm LVIDs: 2.3 cm EDV(Teich): Ao root area: LVPWd: 0.84 cm 66.8 ml ESV(Teich): 6.3 cm2 18.0 ml LA dimension: 3.4 cm EF(Teich): 73.1 % LVLd ap4: 6.6 cm SV(MOD-sp4): EDV(MOD-sp4): 24.0 ml 43.0 ml LVLs ap4: 4.6 cm ESV(MOD-sp4): 19.0 ml EF(MOD-sp4): 55.8 % Doppler Measurements & Calculations MV E max edel: MV P1/2t max edel: Ao V2 max: LV V1 max P.6 cm/sec 68.1 cm/sec 112.0 cm/sec 4.0 mmHg MV A max edel: MV P1/2t: 90.7 msec Ao max P.0 mmHg LV V1 max: 92.3 cm/sec 99.7 cm/sec MV E/A: 0.72 MVA(P1/2t): 2.4 cm2 MV dec slope: 220.1 cm/sec2 MV dec time: 0.30 sec PA V2 max: TR max edel: MV P1/2t-pr_phl: 82.4 cm/sec 313.8 cm/sec 90.7 msec PA max PG: TR max P.4 mmHg 2.7 mmHg Left Ventricle The left ventricle is normal in size. There is normal left ventricular wall thickness. The left ventricular ejection fraction is normal. LV EF is 65%. Doppler measurements suggest impaired left ventricular relaxation, which is associated with grade I/IV or mild diastolic dysfunction. There is septal wall moderate hypokinesis. Not all wall segments were well visualized. There is no thrombus. Right Ventricle The right ventricle is moderately dilated. The right ventricular systolic function is normal. Atria The right atrium is dilated. The left atrial size is normal. Mitral Valve The mitral valve is grossly normal. There is mild mitral annular calcification. There is no evidence of mitral valve prolapse. There is no mitral valve stenosis. There is a trace amount of mitral regurgitation. Aortic Valve The aortic valve opens well. The aortic valve is trileaflet. The aortic valve is sclerotic and shows some degree of functional abnormality. There is no aortic valvular vegetation. There is no aortic valve stenosis. There is a trace amount of aortic regurgitation. Tricuspid Valve The tricuspid is normal in structure and function. There is no tricuspid valve prolapse. There is no tricuspid stenosis. There is a mild amount of tricuspid regurgitation. Best estimated right ventricular systolic pressure is elevated at 50-60mmHg. Pulmonic Valve The pulmonic valve is not well seen, but is grossly normal. There is a mild amount of pulmonic regurgitation. Great Vessels The aortic root is normal size. Effusions There is a small pericardial effusion that is circumferential. I WMSI = 1.33 % Normal = 67 Segments Size X - Cannot 2 - 4 - 1-2 small Interpret 1 - Normal Hypokinetic 3 - AkineticDyskinetic 3-5 moderate 5 - 6-14 large Aneurysmal 15-16 diffuse : SHERRY CANELA > Sherry Canela
[2018-04-17] MEDS: HYDROXYZINE PAMOATE 25 MG CAPSULE PO SCH (22:20)
[2018-04-17] MEDS: ATORVASTATIN CALCIUM 40 MG TABLET PO SCH (22:20)
[2018-04-18 04:47] LABS: ANION GAP 7 (5-19)
[2018-04-18 04:53] LABS: ALANINE AMINOTRANSFERASE 32 U/L (9-52); ALBUMIN 3.4 g/dL (3.5-5.0); ALKALINE PHOSPHATASE 91 U/L (38-126); ASPARTATE AMINO TRANSFERASE 29 U/L (14-36); BILIRUBIN,DIRECT 0.3 mg/dL (0.0-0.4); BILIRUBIN,TOTAL 0.6 mg/dL (0.2-1.3); BLOOD UREA NITROGEN 38 mg/dL (7-20); CALCIUM 8.9 mg/dL (8.4-10.2); CARBON DIOXIDE 37 mmol/L (22-30); CHLORIDE 98 mmol/L (98-107); GLUCOSE 149 mg/dL (75-110); POTASSIUM 4.8 mmol/L (3.6-5.0); TOTAL PROTEIN 7.5 g/dL (6.3-8.2)
[2018-04-18] MEDS: METHYLPREDNISOLONE INJ 40 MG/1 ML SDV IV SCH ×3 (05:09→23:14)
[2018-04-18] MEDS: LANSOPRAZOLE 15 MG TAB.RAP.DR PO SCH ×2 (05:09→18:59)
[2018-04-18 05:34] LABS: ARTERIAL BLOOD BASE EXCESS 11.9 mmol/L; ARTERIAL BLOOD FIO2 28%; ARTERIAL BLOOD H2CO3 2.08 mmol/L (1.05-1.35); ARTERIAL BLOOD HCO3 40.5 mmol/L (20-24); ARTERIAL BLOOD O2 SATURATION 93.6 % (94-98); ARTERIAL BLOOD PH 7.39 (7.35-7.45); ARTERIAL BLOOD PO2 71.7 mmHg (80-100); ARTERIAL BLOOD TOTAL CO2 42.6 mmol/L (21-25)
[2018-04-18 05:36] LABS: ARTERIAL BLOOD PCO2 69.2 mmHg (35-45)
[2018-04-18] MEDS: IPRATROPIUM/ALBUTEROL 0.5-2.5 MG/3 ML AMPUL NEB PRN ×2 (08:35→19:39)
[2018-04-18] MEDS: BUDESONIDE NEB 0.5 MG/2 ML AMPUL NEB SCH ×2 (08:35→19:39)
[2018-04-18] MEDS: ENOXAPARIN SODIUM INJ 30 MG/0.3 ML DISP.SYRIN SUBCUT SCH (09:33)
[2018-04-18] MEDS: EZETIMIBE 10 MG TABLET PO SCH (09:34)
[2018-04-18] MEDS: LISINOPRIL 10 MG TABLET PO SCH (09:35)
[2018-04-18] MEDS: FLUOXETINE HCL 20 MG CAPSULE PO SCH (09:35)
[2018-04-18] MEDS: AMLODIPINE BESYLATE 5 MG TABLET PO SCH (09:36)
[2018-04-18] MEDS: DOXYCYCLINE HYCLATE 100 MG TABLET PO SCH ×2 (09:37→21:07)
[2018-04-18] MEDS: ASPIRIN 81 MG TABLET, ENT COATED PO SCH (09:38)
[2018-04-18] MEDS ORDERED: FUROSEMIDE 40 MG TABLET PO SCH (10:00)
[2018-04-18] MEDS: ALPRAZOLAM 0.5 MG TABLET PO PRN (19:03)
--- NOTE | 2018-04-18 19:54 | PDOC PROGRESS REPORT ---
Subjective Progress Note for:: 04/18/18 Subjective:: JASON ZHENG is a 87 year old female who presented with shortness of breath, lethargy and ataxia. She was admitted for AMS secondary to CHF vs. COPD exacerbation. Patient was seen this morning on rounds. She is awake and alert. Sitting up in bed on nasal cannula eating breakfast. She is able to answer all questions appropriately, she speaks in full sentences. ABG this morning is improved, still demonstrating hypercapnia but no longer acidotic. Allow for weaning to nasal cannula during the day and BIPAP at night. Plan to wean BIPAP. Patient's respiratory status has stabilized to a point where she no longer requires IMCU level care. Plan to downgrade to TELE Reason For Visit: HYPERCAPNIC RESPIRATORY FAILURE,HYPOXIA,PULMONARY Physical Exam Vital Signs: Temp Pulse Resp BP Pulse Ox 98.4 F 62 18 104/40 L 95 04/18/18 16:29 04/18/18 16:29 04/18/18 16:29 04/18/18 16:29 04/18/18 16:29 Intake & Output 04/17/18 04/18/18 04/19/18 06:59 06:59 06:59 Intake Total 344 225 Output Total 2455 1320 0 Balance -2455 -976 225 Weight 65.8 kg 65.6 kg General appearance: PRESENT: no acute distress Eye exam: PRESENT: conjunctiva pink, PERRLA Mouth exam: PRESENT: moist Teeth exam: PRESENT: other - dentures Neck exam: PRESENT: full ROM Respiratory exam: PRESENT: clear to auscultation juanjose, symmetrical, unlabored Cardiovascular exam: PRESENT: +S1, +S2 Pulses: PRESENT: normal radial pulses, normal dorsalis pedis pul Vascular exam: PRESENT: normal capillary refill GI/Abdominal exam: PRESENT: soft. ABSENT: distended, tenderness Rectal exam: PRESENT: deferred Extremities exam: PRESENT: full ROM Musculoskeletal exam: PRESENT: ambulatory, full ROM Neurological exam: PRESENT: alert, awake, oriented to person, oriented to place, oriented to time, oriented to situation Skin exam: PRESENT: dry, intact, normal color, warm Results Laboratory Results: 04/17/18 04:43 04/18/18 03:58 04/18/18 04/18/18 03:58 05:17 Carbonic Acid 2.08 H HCO3/H2CO3 Ratio 19:1 ABG pH 7.39 ABG pCO2 69.2 H* ABG pO2 71.7 L ABG HCO3 40.5 H ABG O2 Saturation 93.6 L ABG Base Excess 11.9 FiO2 28% Sodium 142.0 Potassium 4.8 Chloride 98 Carbon Dioxide 37 H Anion Gap 7 BUN 38 H Creatinine 1.15 Est GFR ( Amer) 54 L Est GFR (Non-Af Amer) 45 L Glucose 149 H Calcium 8.9 Magnesium 2.1 Total Bilirubin 0.6 AST 29 ALT 32 Alkaline Phosphatase 91 Total Protein 7.5 Albumin 3.4 L 04/16/18 04/16/18 04/16/18 09:50 16:28 22:25 CK-MB (CK-2) 1.22 1.22 Troponin I 0.018 0.016 0.013 NT-Pro-B Natriuret Pep 1860 H 04/17/18 04/17/18 04/18/18 04:43 04:43 03:58 CK-MB (CK-2) 0.86 Troponin I 0.012 NT-Pro-B Natriuret Pep 989 H 498 H Impressions: Chest X-Ray 04/16/18 09:19 IMPRESSION: Question mild pulmonary edema Status: Imported from PACS Assessment & Plan - Diagnosis (1) Hypercapnic respiratory failure Qualifiers: Chronicity: acute Qualified Code(s): J96.02 - Acute respiratory failure with hypercapnia Is this a current diagnosis for this admission?: Yes Plan: Secondary to COPD exacerbation Previous hospitalizations at [facility] for similar complaint CXR demonstrates bilateral pleural effusions Initial ABG showed respiratory acidosis - PCO2 > 70. PH 7.32. Has improved PCO2 69 pH7.39 Wean BiPAP - can wean to QHS. Allow for patient to wear nasal cannula at mealtime. (2) COPD with exacerbation Is this a current diagnosis for this admission?: Yes Plan: 24-zady-siga smoking history Continue BiPAP QHS and nasal cannula during the day for hypercapnea DuoNeb treatments as needed Solu-Medrol 40 mg IV every 6 hours Doxycycline for antibiotic prophylaxis (3) Acute on chronic diastolic CHF (congestive heart failure) Is this a current diagnosis for this admission?: Yes Plan: Evidence of volume overload secondary to CHF exacerbation Lower extremity pitting edema and bilateral pleural effusions noted on CXR Initial dose of Lasix administered in ED PO Lasix daily Consult cardiology Previous echo from April 2017 reveals grade 2 diastolic dysfunction, normal EF. Echocardiogram from this hospitalization reveals LVEF 65% grade I diastolic dysfunction, moderate pulmonary HTN (RVSP 55) (4) T wave inversion in EKG Is this a current diagnosis for this admission?: Yes Plan: Widespread T wave inversion in the anterior precordial leads This is new compared to previous EKGs Ischemia could be secondary to hypoxemia in light of her CO2 narcosis Cardiac enzymes negative, no longer need to trend at this time - Time Time Spent with patient: 15-24 minutes Medications reviewed and adjusted accordingly: Yes Anticipated discharge: Home - Inpatient Certification Based on my medical assessment, after consideration of the patient's comorbidities, presenting symptoms, or acuity I expect that the services needed warrant INPATIENT care.: Yes I certify that my determination is in accordance with my understanding of Medicare's requirements for reasonable and necessary INPATIENT services [42 CFR 412.3e].: Yes Medical Necessity: Need for Nebulizer Therapy and Monitoring of Response, Risk of Complication if Not Cared For in Hospital
[2018-04-18] MEDS: HYDROXYZINE PAMOATE 25 MG CAPSULE PO SCH (21:07)
[2018-04-18] MEDS: ATORVASTATIN CALCIUM 40 MG TABLET PO SCH (21:07)
[2018-04-19] MEDS: LANSOPRAZOLE 15 MG TAB.RAP.DR PO SCH ×2 (05:05→17:06)
[2018-04-19] MEDS: METHYLPREDNISOLONE INJ 40 MG/1 ML SDV IV SCH ×3 (05:05→21:40)
[2018-04-19 07:27] LABS: ALANINE AMINOTRANSFERASE 41 U/L (9-52); ALBUMIN 3.1 g/dL (3.5-5.0); ALKALINE PHOSPHATASE 86 U/L (38-126); ASPARTATE AMINO TRANSFERASE 28 U/L (14-36); BILIRUBIN,DIRECT 0.3 mg/dL (0.0-0.4); BILIRUBIN,TOTAL 0.5 mg/dL (0.2-1.3); BLOOD UREA NITROGEN 36 mg/dL (7-20); CALCIUM 8.8 mg/dL (8.4-10.2); GLUCOSE 133 mg/dL (75-110); POTASSIUM 4.3 mmol/L (3.6-5.0); TOTAL PROTEIN 6.7 g/dL (6.3-8.2)
[2018-04-19 07:33] LABS: ANION GAP 4 (5-19); CARBON DIOXIDE 38 mmol/L (22-30); CHLORIDE 97 mmol/L (98-107); SODIUM 138.5 mmol/L (137-145)
[2018-04-19] MEDS: IPRATROPIUM/ALBUTEROL 0.5-2.5 MG/3 ML AMPUL NEB PRN (08:12)
[2018-04-19] MEDS: BUDESONIDE NEB 0.5 MG/2 ML AMPUL NEB SCH ×2 (08:12→20:06)
[2018-04-19] MEDS: EZETIMIBE 10 MG TABLET PO SCH (10:14)
[2018-04-19] MEDS: ASPIRIN 81 MG TABLET, ENT COATED PO SCH (10:15)
[2018-04-19] MEDS: FLUOXETINE HCL 20 MG CAPSULE PO SCH (10:15)
[2018-04-19] MEDS: ALPRAZOLAM 0.5 MG TABLET PO PRN (10:15)
[2018-04-19] MEDS: ENOXAPARIN SODIUM INJ 30 MG/0.3 ML DISP.SYRIN SUBCUT SCH (10:15)
[2018-04-19] MEDS: AMLODIPINE BESYLATE 5 MG TABLET PO SCH (10:15)
[2018-04-19] MEDS: LISINOPRIL 10 MG TABLET PO SCH (10:15)
[2018-04-19] MEDS: DOXYCYCLINE HYCLATE 100 MG TABLET PO SCH ×2 (10:20→21:40)
--- NOTE | 2018-04-19 20:40 | PDOC PROGRESS REPORT ---
Subjective Progress Note for:: 04/19/18 Subjective:: JASON ZHENG is a 87 year old female who presented with shortness of breath, lethargy and ataxia. She was admitted for AMS secondary to CHF vs. COPD exacerbation. Patient was seen this morning on rounds. She is awake and alert. Sitting up in the recliner on nasal cannula. She is able to answer all questions appropriately, she speaks in full sentences. The patient does not wear O2 at home. Will attempt to wean nasal cannula. If unable, the patient may require home O2. Reason For Visit: HYPERCAPNIC RESPIRATORY FAILURE,HYPOXIA,PULMONARY Physical Exam Vital Signs: Temp Pulse Resp BP Pulse Ox 98.5 F 67 20 119/48 L 95 04/19/18 15:36 04/19/18 15:36 04/19/18 15:36 04/19/18 15:36 04/19/18 15:36 Intake & Output 04/18/18 04/19/18 04/20/18 06:59 06:59 06:59 Intake Total 344 833 680 Output Total 1320 880 200 Balance -976 -47 480 Weight 65.6 kg 65.6 kg General appearance: PRESENT: no acute distress Head exam: PRESENT: atraumatic Eye exam: PRESENT: conjunctiva pink, PERRLA Mouth exam: PRESENT: moist Neck exam: PRESENT: full ROM Respiratory exam: PRESENT: clear to auscultation juanjose, symmetrical, unlabored Cardiovascular exam: PRESENT: +S1, +S2 Pulses: PRESENT: normal radial pulses, normal dorsalis pedis pul Vascular exam: PRESENT: normal capillary refill GI/Abdominal exam: PRESENT: soft. ABSENT: distended, tenderness Rectal exam: PRESENT: deferred Extremities exam: PRESENT: full ROM Musculoskeletal exam: PRESENT: ambulatory - with walker, full ROM Neurological exam: PRESENT: alert, awake, oriented to person, oriented to place, oriented to time, oriented to situation Skin exam: PRESENT: dry, intact, warm Results Laboratory Results: 04/17/18 04:43 04/19/18 06:53 04/19/18 06:53 Sodium 138.5 Potassium 4.3 Chloride 97 L Carbon Dioxide 38 H Anion Gap 4 L BUN 36 H Creatinine 1.05 Est GFR ( Amer) > 60 Est GFR (Non-Af Amer) 50 L Glucose 133 H Calcium 8.8 Magnesium 1.9 Total Bilirubin 0.5 AST 28 ALT 41 Alkaline Phosphatase 86 Total Protein 6.7 Albumin 3.1 L 04/16/18 04/16/18 04/16/18 09:50 16:28 22:25 CK-MB (CK-2) 1.22 1.22 Troponin I 0.018 0.016 0.013 NT-Pro-B Natriuret Pep 1860 H 04/17/18 04/17/18 04/18/18 04:43 04:43 03:58 CK-MB (CK-2) 0.86 Troponin I 0.012 NT-Pro-B Natriuret Pep 989 H 498 H 04/19/18 06:53 CK-MB (CK-2) Troponin I NT-Pro-B Natriuret Pep 368 Impressions: Chest X-Ray 04/16/18 09:19 IMPRESSION: Question mild pulmonary edema Status: Imported from PACS Assessment & Plan - Diagnosis (1) Hypercapnic respiratory failure Qualifiers: Chronicity: acute Qualified Code(s): J96.02 - Acute respiratory failure with hypercapnia Is this a current diagnosis for this admission?: Yes Plan: Secondary to COPD exacerbation Previous hospitalizations at [facility] for similar complaint CXR demonstrates bilateral pleural effusions Initial ABG showed respiratory acidosis - PCO2 > 70. PH 7.32. Has improved PCO2 69 pH 7.39 BiPAP QHS Allow for patient to wear nasal cannula for spo2>88%. (2) COPD with exacerbation Is this a current diagnosis for this admission?: Yes Plan: [id number] smoking history Continue supplemental O2 for spo2 >88% DuoNeb treatments as needed Solu-Medrol 40 mg IV every 6 hours Doxycycline for antibiotic prophylaxis (3) Acute on chronic diastolic CHF (congestive heart failure) Is this a current diagnosis for this admission?: Yes Plan: Evidence of volume overload secondary to CHF exacerbation Lower extremity pitting edema and bilateral pleural effusions noted on CXR Initial dose of Lasix administered in ED PO Lasix daily Consulted cardiology Previous echo from April 2017 reveals grade 2 diastolic dysfunction, normal EF. Echocardiogram from this hospitalization reveals LVEF 65% grade I diastolic dysfunction, moderate pulmonary HTN (RVSP 55) (4) T wave inversion in EKG Is this a current diagnosis for this admission?: Yes Plan: Widespread T wave inversion in the anterior precordial leads This is new compared to previous EKGs Ischemia could be secondary to hypoxemia in light of her CO2 narcosis Cardiac enzymes negative, no longer need to trend at this time - Time Time Spent with patient: 15-24 minutes Medications reviewed and adjusted accordingly: Yes Anticipated discharge: Home - Inpatient Certification Based on my medical assessment, after consideration of the patient's comorbidities, presenting symptoms, or acuity I expect that the services needed warrant INPATIENT care.: Yes I certify that my determination is in accordance with my understanding of Medicare's requirements for reasonable and necessary INPATIENT services [42 CFR 412.3e].: Yes Medical Necessity: Risk of Complication if Not Cared For in Hospital
[2018-04-19] MEDS: HYDROXYZINE PAMOATE 25 MG CAPSULE PO SCH (21:40)
[2018-04-19] MEDS: ATORVASTATIN CALCIUM 40 MG TABLET PO SCH (21:40)
[2018-04-20] MEDS: LANSOPRAZOLE 15 MG TAB.RAP.DR PO SCH ×2 (06:06→18:22)
[2018-04-20] MEDS: METHYLPREDNISOLONE INJ 40 MG/1 ML SDV IV SCH ×3 (06:06→21:55)
[2018-04-20] MEDS: IPRATROPIUM/ALBUTEROL 0.5-2.5 MG/3 ML AMPUL NEB PRN (08:22)
[2018-04-20] MEDS: BUDESONIDE NEB 0.5 MG/2 ML AMPUL NEB SCH ×2 (08:22→20:19)
[2018-04-20] MEDS: DOXYCYCLINE HYCLATE 100 MG TABLET PO SCH ×2 (10:27→21:33)
[2018-04-20] MEDS: EZETIMIBE 10 MG TABLET PO SCH (10:27)
[2018-04-20] MEDS: LISINOPRIL 10 MG TABLET PO SCH (10:27)
[2018-04-20] MEDS: ASPIRIN 81 MG TABLET, ENT COATED PO SCH (10:27)
[2018-04-20] MEDS: FLUOXETINE HCL 20 MG CAPSULE PO SCH (10:27)
[2018-04-20] MEDS: ENOXAPARIN SODIUM INJ 30 MG/0.3 ML DISP.SYRIN SUBCUT SCH (10:27)
[2018-04-20] MEDS: AMLODIPINE BESYLATE 5 MG TABLET PO SCH (10:27)
--- NOTE | 2018-04-20 16:34 | PDOC PROGRESS REPORT ---
Subjective Progress Note for:: 04/20/18 Subjective:: JASON ZHENG is a 87 year old female who presented with shortness of breath, lethargy and ataxia. She was admitted for AMS secondary to CHF vs. COPD exacerbation. Patient was seen this morning on rounds. She is awake and alert. Sitting up in bed on nasal cannula. She is able to answer most questions appropriately, sometimes gets confused. She speaks in full sentences. Her lungs are clear to auscultation. The patient does not wear O2 at home. Will attempt to wean nasal cannula. If unable, the patient may require home O2. No concerns from nursing staff. Reason For Visit: HYPERCAPNIC RESPIRATORY FAILURE,HYPOXIA,PULMONARY Physical Exam Vital Signs: Temp Pulse Resp BP Pulse Ox 97.7 F 64 20 126/53 H 94 04/20/18 12:42 04/20/18 12:42 04/20/18 12:42 04/20/18 12:42 04/20/18 12:42 Intake & Output 04/19/18 04/20/18 04/21/18 06:59 06:59 06:59 Intake Total 833 890 Output Total 880 1100 Balance -47 -210 Weight 65.6 kg 64.8 kg General appearance: PRESENT: no acute distress Eye exam: PRESENT: conjunctiva pink, PERRLA Mouth exam: PRESENT: moist Teeth exam: PRESENT: poor dentation Neck exam: PRESENT: full ROM Respiratory exam: PRESENT: clear to auscultation juanjose, symmetrical, unlabored Cardiovascular exam: PRESENT: +S1, +S2 Pulses: PRESENT: normal radial pulses, normal dorsalis pedis pul Vascular exam: PRESENT: normal capillary refill GI/Abdominal exam: PRESENT: soft. ABSENT: tenderness Rectal exam: PRESENT: deferred Extremities exam: PRESENT: full ROM. ABSENT: pedal edema Musculoskeletal exam: PRESENT: ambulatory, full ROM, normal inspection Neurological exam: PRESENT: alert, awake, oriented to person, oriented to place, oriented to time, oriented to situation Psychiatric exam: PRESENT: appropriate affect Skin exam: PRESENT: dry, intact, normal color Results Laboratory Results: 04/17/18 04:43 04/19/18 06:53 04/16/18 04/16/18 04/16/18 09:50 16:28 22:25 CK-MB (CK-2) 1.22 1.22 Troponin I 0.018 0.016 0.013 NT-Pro-B Natriuret Pep 1860 H 04/17/18 04/17/18 04/18/18 04:43 04:43 03:58 CK-MB (CK-2) 0.86 Troponin I 0.012 NT-Pro-B Natriuret Pep 989 H 498 H 04/19/18 06:53 CK-MB (CK-2) Troponin I NT-Pro-B Natriuret Pep 368 Impressions: Chest X-Ray 04/16/18 09:19 IMPRESSION: Question mild pulmonary edema Status: Imported from PACS Assessment & Plan - Diagnosis (1) Hypercapnic respiratory failure Qualifiers: Chronicity: acute Qualified Code(s): J96.02 - Acute respiratory failure with hypercapnia Is this a current diagnosis for this admission?: Yes Plan: Secondary to COPD exacerbation Previous hospitalizations at [facility] for similar complaint CXR demonstrates bilateral pleural effusions Initial ABG showed respiratory acidosis - PCO2 > 70. PH 7.32. Has improved PCO2 69 pH 7.39 BiPAP QHS Allow for patient to wear nasal cannula for spo2>88%. (2) COPD with exacerbation Is this a current diagnosis for this admission?: Yes Plan: [id number] smoking history Continue supplemental O2 for spo2 >88% DuoNeb treatments as needed Solu-Medrol 40 mg IV every 6 hours Doxycycline for antibiotic prophylaxis Initiated Spiriva and Serevent If patient unable to wean from supplemental O2, may need to consider sending her home with oxygen Case management aware (3) Acute on chronic diastolic CHF (congestive heart failure) Is this a current diagnosis for this admission?: Yes Plan: Improving Evidence of volume overload secondary to CHF exacerbation Lower extremity pitting edema and bilateral pleural effusions noted on CXR, has since resolved Initial dose of Lasix administered in ED PO Lasix daily Consulted cardiology Previous echo from April 2017 reveals grade 2 diastolic dysfunction, normal EF. Echocardiogram from this hospitalization reveals LVEF 65% grade I diastolic dysfunction, moderate pulmonary HTN (RVSP 55) (4) T wave inversion in EKG Is this a current diagnosis for this admission?: Yes Plan: Widespread T wave inversion in the anterior precordial leads This is new compared to previous EKGs Ischemia could be secondary to hypoxemia in light of her CO2 narcosis Cardiac enzymes negative, no longer need to trend at this time - Time Time Spent with patient: 15-24 minutes Medications reviewed and adjusted accordingly: Yes Anticipated discharge: Home - Inpatient Certification Based on my medical assessment, after consideration of the patient's comorbidities, presenting symptoms, or acuity I expect that the services needed warrant INPATIENT care.: Yes I certify that my determination is in accordance with my understanding of Medicare's requirements for reasonable and necessary INPATIENT services [42 CFR 412.3e].: Yes Medical Necessity: Need for Nebulizer Therapy and Monitoring of Response, Risk of Complication if Not Cared For in Hospital - Plan Summary Plan Summary: AMBULATE WITH AND WITHOUT OXYGEN. INITIATE SPIRIVA AND SEREVENT. CHANGE NEBULIZERS TO PRN. ANTICIPATE PATIENT WILL NEED HOME O2
[2018-04-20] MEDS ORDERED: SALMETEROL XINAFOATE DISKUS 50 MCG/1 DOSE 28 DOSE IH ONE (20:41)
[2018-04-20] MEDS ORDERED: TIOTROPIUM BROMIDE DPI 5 CAP/KIT (18 MCG/CAP) IH ONE (20:41)
[2018-04-20] MEDS: HYDROXYZINE PAMOATE 25 MG CAPSULE PO SCH (21:33)
[2018-04-20] MEDS: ATORVASTATIN CALCIUM 40 MG TABLET PO SCH (21:33)
[2018-04-20] MEDS: SALMETEROL XINAFOATE DISKUS 50 MCG/1 DOSE 28 DOSE IH SCH (21:34)
[2018-04-20] MEDS: TIOTROPIUM BROMIDE DPI 5 CAP/KIT (18 MCG/CAP) IH SCH (21:35)
[2018-04-20] MEDS: ALPRAZOLAM 0.5 MG TABLET PO PRN (21:38)
[2018-04-21] MEDS: LANSOPRAZOLE 15 MG TAB.RAP.DR PO SCH (05:51)
[2018-04-21] MEDS: METHYLPREDNISOLONE INJ 40 MG/1 ML SDV IV SCH (05:51)
[2018-04-21 06:02] LABS: HEMATOCRIT 45.1 % (36.0-47.0); HEMOGLOBIN 14.7 g/dL (12.0-15.5); MEAN CORPUSCULAR HEMOGLOBIN 27.9 pg (27.0-33.4); MEAN CORPUSCULAR HGB CONC 32.5 g/dL (32.0-36.0); MEAN CORPUSCULAR VOLUME 86 fl (80-97); PLATELET COUNT 202 10^3/uL (150-450); RED BLOOD COUNT 5.25 10^6/uL (3.72-5.28)
[2018-04-21 06:24] LABS: ALANINE AMINOTRANSFERASE 33 U/L (9-52); ALBUMIN 2.7 g/dL (3.5-5.0); ALKALINE PHOSPHATASE 68 U/L (38-126); ANION GAP 5 (5-19); ASPARTATE AMINO TRANSFERASE 33 U/L (14-36); BILIRUBIN,DIRECT 0.3 mg/dL (0.0-0.4); BILIRUBIN,TOTAL 0.7 mg/dL (0.2-1.3); BLOOD UREA NITROGEN 31 mg/dL (7-20); CALCIUM 8.8 mg/dL (8.4-10.2); CARBON DIOXIDE 34 mmol/L (22-30); CHLORIDE 101 mmol/L (98-107); GLUCOSE 124 mg/dL (75-110); POTASSIUM 4.4 mmol/L (3.6-5.0); SODIUM 140.4 mmol/L (137-145); TOTAL PROTEIN 6.1 g/dL (6.3-8.2)
[2018-04-21] MEDS: BUDESONIDE NEB 0.5 MG/2 ML AMPUL NEB SCH (07:52)
[2018-04-21] MEDS ORDERED: FUROSEMIDE 20 MG TABLET PO ONE (11:30)
[2018-04-21] MEDS: TIOTROPIUM BROMIDE DPI 5 CAP/KIT (18 MCG/CAP) IH SCH (11:37)
[2018-04-21] MEDS: DOXYCYCLINE HYCLATE 100 MG TABLET PO SCH (11:37)
[2018-04-21] MEDS: ASPIRIN 81 MG TABLET, ENT COATED PO SCH (11:38)
[2018-04-21] MEDS: AMLODIPINE BESYLATE 5 MG TABLET PO SCH (11:38)
[2018-04-21] MEDS: FLUOXETINE HCL 20 MG CAPSULE PO SCH (11:38)
[2018-04-21] MEDS: SALMETEROL XINAFOATE DISKUS 50 MCG/1 DOSE 28 DOSE IH SCH (11:38)
[2018-04-21] MEDS: EZETIMIBE 10 MG TABLET PO SCH (11:38)
[2018-04-21] MEDS: LISINOPRIL 10 MG TABLET PO SCH (11:39)
[2018-04-21] MEDS ORDERED: FUROSEMIDE INJ/PF 40 MG/4 ML SDV IV ONE (12:00)
[2018-04-21] MEDS: ENOXAPARIN SODIUM INJ 30 MG/0.3 ML DISP.SYRIN SUBCUT SCH (12:19)
[2018-04-21 14:31] VITALS: BP 127/59
--- NOTE | 2018-04-23 09:02 | PDOC DISCHARGE SUMMARY ---
General - Admit/Disc Date/PCP Admission Date/Primary Care Provider: 04/16/18 12:21 EFE STALLINGS NP Discharge Date: 04/21/18 - Discharge Diagnosis (1) Hypercapnic respiratory failure Is this a current diagnosis for this admission?: Yes (2) COPD with exacerbation Is this a current diagnosis for this admission?: Yes (3) Acute on chronic diastolic CHF (congestive heart failure) Is this a current diagnosis for this admission?: Yes (4) T wave inversion in EKG Is this a current diagnosis for this admission?: Yes - Additional Information Resuscitation Status: Full Code Discharge Diet: Cardiac Discharge Activity: Activity As Tolerated, Balance Activity w/Rest, Weigh Daily Prescriptions: Doxycycline Hyclate [Vibramycin 100 mg Tablet] 100 mg PO Q12 #6 tablet Salmeterol Xinafoate [Serevent Diskus 50 Mcg/Dose 28 Dose/Diskus] 50 mcg IH Q12 #1 disk Tiotropium Rudyard [Spiriva Handihaler 5 Cap/Kit (18 Mcg/Cap)] 1 cap IH DAILY #1 kit Home Medications: Alprazolam [Xanax 0.5 mg Tablet] 0.5 mg PO Q8HP PRN MDD 3 mg 05/20/17 Fluoxetine HCl [Prozac] 40 mg PO DAILY 05/20/17 Risperidone [Risperdal 1 mg Tablet] 1 mg PO QHS 05/20/17 Amlodipine Besylate [Norvasc 5 mg Tablet] 5 mg PO DAILY 2 Days #30 tablet 05/23/17 Lisinopril [Prinivil 10 mg Tablet] 10 mg PO DAILY #30 tablet 05/23/17 Aspirin [Adult Low Dose Aspirin EC] 162 mg PO DAILY 04/16/18 Atorvastatin Calcium [Lipitor 40 mg Tablet] 40 mg PO QHS 04/16/18 Collagenase Clostridium Hist. [Santyl Ointment 30 gm] 1 applic TP DAILY 04/16/18 Ezetimibe [Zetia 10 mg Tablet] 10 mg PO DAILY 04/16/18 Furosemide [Lasix 20 mg Tablet] 20 mg PO QAM 04/16/18 Hydroxyzine Pamoate [Vistaril 25 mg Capsule] 25 mg PO QHS 04/16/18 Mirabegron [Myrbetriq] 50 mg PO DAILY 04/16/18 Omeprazole 20 mg PO BID 04/16/18 Doxycycline Hyclate [Vibramycin 100 mg Tablet] 100 mg PO Q12 #6 tablet 04/21/18 Salmeterol Xinafoate [Serevent Diskus 50 Mcg/Dose 28 Dose/Diskus] 50 mcg IH Q12 #1 disk 04/21/18 Tiotropium Rudyard [Spiriva Handihaler 5 Cap/Kit (18 Mcg/Cap)] 1 cap IH DAILY #1 kit 04/21/18 History of Present Illness History of Present Illness: JASON ZHENG is a 87 year old female who presented with shortness of breath, lethargy and ataxia. According to the patient's , her symptoms began 3 days ago. He states that the patient has been increasingly 'sleepy' and has required the use of a cane when ambulating. Additionally, the patient has been complaining that she has had a difficult time breathing. Of note, the patient has been admitted for shortness of breath multiple times in the past -mostly stemming from CHF or COPD exacerbations. Upon arrival to the emergency department, patient's EKG shows normal sinus rhythm. No evidence of acute infarction or ischemia. CXR demonstrates a few Yesi B lines at both bases, questionable interstitial edema. No other abnormal findings. Laboratory studies are relatively unremarkable, cardiac enzymes within normal limits. ABG demonstrates respiratory acidosis (PH 7.29 PCO2 70). The patient was placed on BiPAP and nebulizer treatment was initiated by ER physician. Upon assessment, the patient is resting comfortably in bed on BiPAP. She is able to answer questions appropriately using 2-3 word phrases. Her mostly provides history. The patient does not appear to be in respiratory distress, she is breathing comfortably on BiPAP. Lungs are clear to auscultation. No evidence of central or peripheral cyanosis. The patient states she feels 'better'she is on BiPAP. According to the patient's , she appears slightly lethargic when compared to her baseline. Given the patient's tenuous respiratory status, plan to admit to ICU. Consult pulmonary and cardiology. Hospital Course Hospital Course: JASON ZHENG is a 87 year old female who presented with shortness of breath, lethargy and ataxia. She was admitted for AMS secondary to CHF vs. COPD exacerbation. Of note, the patient has been admitted to [facility] in the past for this same clinical presentation. Initially placed on BIPAP and admitted to the ICU for hypercapnic respiratory acidosis (PCO2 > 70. PH 7.29). On clinical exam, the patient was awake and able to answer most questions appropriately. She appeared comfortable on BIPAP and was not showing signs of distress. There was evidence of volume overload on her clinical exam: bilateral lower extremity pitting edema and bilateral pleural effusions noted on CXR, for which the patient was diuresed with IV lasix. On her EKG, T wave inversions were present in the lateral leads, which was a new finding compared to old EKGs. Her cardiac enzymes were normal. Cardiology was consulted and an ECHOcardiogram was preformed. According to Dr. Doherty, her new EKG findings were thought to be evidence of ischemia secondary to hypoxemia in light of her CO2 narcosis. Her echocardiogram from this hospitalization reveals LVEF 65% grade I diastolic dysfunction, moderate pulmonary HTN (RVSP 55). Since her cardiac workup was relatively benign, her clinical presentation was thought to be primarily caused by an exacerbation of her COPD. The patient admitted to a 20 pack year smoking history. While inpatient, she was given scheduled nebulizer treatments, IV steroids, and empiric antibiotic coverage for PNA. Spiriva and serevent inhalers were initiated (of note, it appears that the patient does not use long acting inhalers at home). Her ABG improved, reflecting a slightly elevated CO2 without evidence of acidosis - an expected finding in a patient with COPD. Unfortunately, Mrs. Zheng could not wean from supplemental oxygen. If left on room air, her SPO2 would drop to the 70s %. While on 3L nasal cannula, her SPO2 was within an acceptable range. Her dependence on oxygen is likely a manifestation of her disease progression. On the day of discharge, the patient was sent home on oxygen, with instructions that she must wear it at all times. She was told that without it, her oxygen levels would drop dangerously low. She was also told to follow up with a pulminologist as soon as possible. Both the patient and her verbalized understanding of these instructions. Additionally, the patient was sent home with prescriptions for Spiriva and serevent inhalers, as well as doxycycline to complete her course of antibiotics. For any further information regarding this patient's hospitalization, please re landy to the EMR. Physical Exam Vital Signs: Temp Pulse Resp BP Pulse Ox 99.1 F 60 16 127/59 H 89 L 04/21/18 14:28 04/21/18 14:28 04/21/18 14:28 04/21/18 14:28 04/21/18 14:28 Results Laboratory Results: 04/21/18 05:43 04/21/18 05:43 04/16/18 04/16/18 04/16/18 09:50 16:28 22:25 CK-MB (CK-2) 1.22 1.22 Troponin I 0.018 0.016 0.013 NT-Pro-B Natriuret Pep 1860 H 04/17/18 04/17/18 04/18/18 04:43 04:43 03:58 CK-MB (CK-2) 0.86 Troponin I 0.012 NT-Pro-B Natriuret Pep 989 H 498 H 04/19/18 06:53 CK-MB (CK-2) Troponin I NT-Pro-B Natriuret Pep 368 Impressions: Chest X-Ray 04/16/18 09:19 IMPRESSION: Question mild pulmonary edema Status: Imported from PACS Qualifiers - * PATIENT BEING DISCHARGED WITH ANY OF THE FOLLOWING DIAGNOSIS: Heart Failure HF Pt being discharged on ACEI for LVEF less than 40%?: Yes HF Pt being discharged on ARBS for LVEF less than 40%?: Yes HF Pt with Afib discharged with Warfarin?: No Reason(s) for not prescribing Warfarin:: Not indicated - patient does not have afib HF Pt discharged on evidence-based Beta Ana Cristina:: No Reason(s) for not prescribing evidence-based Beta Ana Cristina:: Contraindicated - BRADYCARDIA
== END 2018-04-21 15:00 | disposition home or self-care (01) | DRG 189 ==
LOC: ER 09:07 → EH 12:21 → ICU 17:47 → 4S 04-18 11:28
PROVIDERS: ADMIT Internal Medicine; ATTEND Internal Medicine
PROC: 5A09457 Assistance with Respiratory Ventilation, 24-96 Consecutive Hours, Continuous Positive Airway Pressure (ICD-10-PCS; principal; 2018-04-16)
DX: J96.02 Acute respiratory failure with hypercapnia (principal); I50.33 Acute on chronic diastolic (congestive) heart failure; J44.1 Chronic obstructive pulmonary disease with (acute) exacerbation; I11.0 Hypertensive heart disease with heart failure; R94.31 Abnormal electrocardiogram [ECG] [EKG]; I25.10 Atherosclerotic heart disease of native coronary artery without angina pectoris; E78.5 Hyperlipidemia, unspecified; K21.9 Gastro-esophageal reflux disease without esophagitis; F32.9 Major depressive disorder, single episode, unspecified; M19.90 Unspecified osteoarthritis, unspecified site; F41.1 Generalized anxiety disorder; Z79.82 Long term (current) use of aspirin; Z79.899 Other long term (current) drug therapy; I25.2 Old myocardial infarction; Z90.710 Acquired absence of both cervix and uterus; Z96.652 Presence of left artificial knee joint; Z87.891 Personal history of nicotine dependence
CPT/HCPCS: 36415; 36600; 71045; 80053; 81001; 82553; 82803; 83735; 83880; 84443; 84484; 85025; 85027; 93005; 93010; 93306; 94640; 94660; 99285; J1650; J1940; J2920; J2930; J3490; J7620

== ENCOUNTER → 2018-05-13 | Outpatient (CLI) | payer MEDICARE, OTHER ==
[2018-05-13 12:17] LABS: ALANINE AMINOTRANSFERASE 27 U/L (9-52); ALBUMIN 3.4 g/dL (3.5-5.0); ALKALINE PHOSPHATASE 98 U/L (38-126); ANION GAP 7 (5-19); ASPARTATE AMINO TRANSFERASE 30 U/L (14-36); BILIRUBIN,DIRECT 0.1 mg/dL (0.0-0.4); BILIRUBIN,TOTAL 0.5 mg/dL (0.2-1.3); BLOOD UREA NITROGEN 16 mg/dL (7-20); CALCIUM 9.2 mg/dL (8.4-10.2); CARBON DIOXIDE 36 mmol/L (22-30); CHLORIDE 100 mmol/L (98-107); CHOLESTEROL 148.62 mg/dL (0-200); GLUCOSE 71 mg/dL (75-110); POTASSIUM 4.4 mmol/L (3.6-5.0); SODIUM 142.6 mmol/L (137-145); TRIGLYCERIDES 63 mg/dL (<150)
[2018-05-13 12:30] LABS: DIRECT LDL 76 mg/dL (<100)
== END ==
LOC: OD 10:25
PROVIDERS: ATTEND Internal Medicine Cardiovascular Disease
DX: E78.00 Pure hypercholesterolemia, unspecified (principal); I12.9 Hypertensive chronic kidney disease with stage 1 through stage 4 chronic kidney disease, or unspecified chronic kidney disease; N18.3 Chronic kidney disease, stage 3 (moderate); I25.2 Old myocardial infarction
CPT/HCPCS: 36415; 80048; 80061; 80076; 83735

== ENCOUNTER → 2018-05-29 | Outpatient (CLI) | payer MEDICARE, OTHER ==
[2018-05-29 15:57] LABS: ABSOLUTE BASOPHILS # (AUTO) 0.1 10^3/uL (0.0-0.2); ABSOLUTE EOSINOPHILS # (AUTO) 0.3 10^3/uL (0.0-0.6); ABSOLUTE LYMPHOCYTES (AUTO) 1.2 10^3/uL (0.5-4.7); ABSOLUTE MONOCYTES (AUTO) 0.7 10^3/uL (0.1-1.4); ABSOLUTE NEUT (AUTO) 3.6 10^3/uL (1.7-8.2); BASOPHILS % (AUTO) 1.1 % (0-2); EOSINOPHILS % (AUTO) 5.2 % (0-6); HEMATOCRIT 42.8 % (36.0-47.0); HEMOGLOBIN 13.9 g/dL (12.0-15.5); LYMPHOCYTES % (AUTO) 21.1 % (13-45); MEAN CORPUSCULAR HEMOGLOBIN 27.7 pg (27.0-33.4); MEAN CORPUSCULAR HGB CONC 32.5 g/dL (32.0-36.0); MEAN CORPUSCULAR VOLUME 85 fl (80-97); MONOCYTES % (AUTO) 11.9 % (3-13); PLATELET COUNT 272 10^3/uL (150-450); RED BLOOD COUNT 5.04 10^6/uL (3.72-5.28); RED CELL DISTRIBUTION WIDTH 16.5 % (11.5-14.0); SEGMENTED NEUTROPHILS % (AUTO) 60.7 % (42-78); TOTAL CELLS COUNTED % (AUTO) 100 %; WHITE BLOOD COUNT 5.9 10^3/uL (4.0-10.5)
[2018-05-29 16:24] LABS: ALANINE AMINOTRANSFERASE 10 U/L (9-52); ALBUMIN 3.6 g/dL (3.5-5.0); ALKALINE PHOSPHATASE 93 U/L (38-126); ANION GAP 8 (5-19); ASPARTATE AMINO TRANSFERASE 29 U/L (14-36); BILIRUBIN,DIRECT 0.3 mg/dL (0.0-0.4); BILIRUBIN,TOTAL 0.4 mg/dL (0.2-1.3); BLOOD UREA NITROGEN 16 mg/dL (7-20); C-REACTIVE PROTEIN 6.9 mg/L (<10.0); CALCIUM 9.8 mg/dL (8.4-10.2); CARBON DIOXIDE 36 mmol/L (22-30); CHLORIDE 100 mmol/L (98-107); GLUCOSE 113 mg/dL (75-110); POTASSIUM 4.1 mmol/L (3.6-5.0); SODIUM 143.5 mmol/L (137-145); TOTAL PROTEIN 7.2 g/dL (6.3-8.2)
[2018-05-29 16:32] LABS: ERYTHROCYTE SEDIMENTATION RATE 29 mm/hr (0-30)
[2018-05-29 17:18] LABS: ALANINE AMINOTRANSFERASE 10 U/L (9-52); ALBUMIN 3.6 g/dL (3.5-5.0); ALKALINE PHOSPHATASE 93 U/L (38-126); ANION GAP 8 (5-19); ASPARTATE AMINO TRANSFERASE 29 U/L (14-36); BILIRUBIN,DIRECT 0.3 mg/dL (0.0-0.4); BILIRUBIN,TOTAL 0.4 mg/dL (0.2-1.3); BLOOD UREA NITROGEN 16 mg/dL (7-20); CALCIUM 9.8 mg/dL (8.4-10.2); CARBON DIOXIDE 36 mmol/L (22-30); CHLORIDE 100 mmol/L (98-107); GLUCOSE 113 mg/dL (75-110); POTASSIUM 4.1 mmol/L (3.6-5.0); SODIUM 143.5 mmol/L (137-145); TOTAL PROTEIN 7.2 g/dL (6.3-8.2); URIC ACID 4.8 mg/dL (2.5-7.5)
== END ==
LOC: LAB 15:24
PROVIDERS: ATTEND Internal Medicine Cardiovascular Disease
DX: I10 Essential (primary) hypertension (principal); Z79.899 Other long term (current) drug therapy; R06.2 Wheezing; E78.00 Pure hypercholesterolemia, unspecified; L89.523 Pressure ulcer of left ankle, stage 3
CPT/HCPCS: 36415; 80048; 80053; 80076; 83735; 83880; 84550; 85025; 85652; 86140

== ENCOUNTER → 2018-06-03 | Outpatient (CLI) | payer MEDICARE, OTHER ==
--- NOTE | 2018-06-04 10:33 | RADIOLOGY REPORT (SQ) ---
EXAM DESCRIPTION: PET CT SKULL/THIGH COMPLETED DATE/TIME: 06/03/2018 10:06 pm REASON FOR STUDY: OTHER NONSPECIFIC ABNORMAL FINDING OF LUNG FIELD R91.8 OTHER NONSPECIFIC ABNORMAL FINDING OF LUNG FIELD COMPARISON: CT from [facility] dated 05/15/2018. RADIONUCLIDE AND DOSE: 10 mCi F18 FDG The route of agent administration: Intravenous FASTING BLOOD SUGAR: 69 mg/dl CONTRAST TYPE AND DOSE: No CT contrast given. TECHNIQUE: Blood glucose level was verified. Above dose of FDG was injected intravenously. 2-D seg mented attenuation correction images were obtained from the base of the skull to the midthighs. Nonc ontrast CT images were obtained for attenuation correction and fusion with emission images. CT image s were performed without oral or intravenous contrast and are not sensitive for parenchymal lesions. A series of overlapping emission PET images were obtained. Images reviewed and manipulated at [facility] work station by the radiologist. Images stored on PACS. LIMITATIONS: None. FINDINGS: HEAD AND NECK: No areas of abnormal metabolic activity in the soft tissues of the head and neck. CHEST: Emphysematous changes. Parenchymal density in the posterior left upper lobe abutting the jackie r fissure, measuring approximately 0.7 x 2.2 cm (axial image 53). Diffuse activity under that mild d iffuse increased activity with mean SUV 2.54. 9 mm nodule in the right upper lobe (axial image 66) w ith mean SUV 1.17. 9 mm nodule in the left lower lobe (axial image 100) with mean SUV 0.87. ABDOMEN AND PELVIS: No areas of abnormal metabolic activity in the abdomen or pelvis. Expected physi ologic activity is present in the genitourinary system and bowel. PROXIMAL LOWER EXTREMITIES: No areas of abnormal metabolic activity in the soft tissues of the lower extremities. BONES: No abnormal metabolic activity in the visualized skeleton. There are degenerative changes in the lumbar spine with S-shaped scoliosis. There is diffuse increased activity in the right paraspina l lumbar musculature with no focal soft tissue abnormality. This is most likely due to muscular acti vity. 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 No additional sig nificant findings on the noncontrast CT images. OTHER: Background blood pool activity mean SUV 1.55. Background liver activity mean SUV 1.96. No ot her significant findings. IMPRESSION: 1. DIFFUSE EMPHYSEMATOUS CHANGES. PARENCHYMAL DENSITY IN THE POSTERIOR LEFT UPPER LOBE WITH SLIGHT I NCREASED METABOLIC ACTIVITY DESCRIBED. THIS COULD REPRESENT A FOCAL AREA OF INFLAMMATION OR INFEC TION. MALIGNANT PROCESS IS NOT ENTIRELY EXCLUDED. SMALL NODULES IN THE RIGHT UPPER LOBE AND LEFT LO WER LOBE DESCRIBED WITH NO UNUSUAL INCREASED METABOLIC ACTIVITY. ALTHOUGH THESE NODULES ARE NOT H YPERMETABOLIC, THE CT APPEARANCE IS SOMEWHAT CONCERNING. RECOMMEND FOLLOW-UP PET SCAN IN 3-6 MONTHS TO DETERMINE IF THERE IS ANY PROGRESSION. 2. NO OTHER AREAS OF ABNORMAL ACTIVITY ON PET IMAGING. INCIDENTAL FINDINGS ABOVE. TECHNICAL DOCUMENTATION: JOB ID: [id number]- All Rights Reserved Reading location - IP/workstation name: [email or web address]
== END ==
LOC: RAD 15:54
PROVIDERS: ATTEND Internal Medicine Critical Care Medicine
DX: R91.1 Solitary pulmonary nodule (principal); R91.8 Other nonspecific abnormal finding of lung field
CPT/HCPCS: 78815; A9552

== ENCOUNTER 2018-06-23 15:54 | Inpatient (IN) | payer MEDICARE, OTHER ==
--- NOTE | 2018-06-23 16:41 | ER Document Report ---
ED Medical Screen (RME) - General Chief Complaint: General Weakness Stated Complaint: SHORTNESS OF BREATH Time Seen by Provider: 06/23/18 16:29 Primary Care Provider: SHERRY CANELA MD [Primary Care Provider] - Follow up as needed Mode of Arrival: Wheelchair Information source: Patient, Relative Notes: Patient is an 87-year-old female who presents to the emergency department with multiple complaints. Patient's states patient has been dizzy and weak. He states her oxygen level has been lower than usual. He also states that over the last 4 days the patient has had slurred speech and has been leaning to the left side. Patient is alert and oriented and able to answer questions, she states that she has no weakness on her left side but she has a left-sided facial droop and she is hunched over to her left side. Patient has equal fund director. She does have altered sensation in her left lower extremity however she denies numbness but reports pain. 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 I have greeted and performed a rapid initial assessment of this patient. A comprehensive ED assessment and evaluation of the patient, analysis of test results and completion of the medical decision making process will be conducted by additional ED providers. Dictation of this chart was performed using voice recognition software; therefore, there may be some unintended grammatical errors. TRAVEL OUTSIDE OF THE [place] IN LAST 30 DAYS: No - Related Data Allergies/Adverse Reactions: No Known Allergies Allergy (Unverified 04/16/18 16:39) Past Medical History - Social History Chew tobacco use (# tins/day): No Frequency of alcohol use: None Drug Abuse: None - Past Medical History Cardiac Medical History: Reports: Hx Coronary Artery Disease, Hx Heart Attack, Hx Hypercholesterolemia, Hx Hypertension Pulmonary Medical History: Reports: Hx COPD Denies: Hx Tuberculosis Neurological Medical History: Reports: Hx Cerebrovascular Accident Renal/ Medical History: Denies: Hx Peritoneal Dialysis GI Medical History: Reports: Hx Gastroesophageal Reflux Disease Musculoskeltal Medical History: Reports Hx Arthritis Psychiatric Medical History: Reports: Hx Depression Past Surgical History: Reports: Hx Hysterectomy, Hx Orthopedic Surgery - left knee replacement. Denies: Hx Pacemaker - Immunizations Hx Diphtheria, Pertussis, Tetanus Vaccination: No History of Influenza Vaccine for 12/2016 - 05/2017 Season: No Physical Exam - Vital signs Vitals: Temp Pulse Resp BP Pulse Ox 98.2 F 73 27 H 93/40 L 84 L 06/23/18 16:18 06/23/18 16:18 06/23/18 16:18 06/23/18 16:18 06/23/18 16:18 Course - Vital Signs Vital signs: Temp Pulse Resp BP Pulse Ox 98.2 F 73 27 H 93/40 L 84 L 06/23/18 16:18 06/23/18 16:18 06/23/18 16:18 06/23/18 16:18 06/23/18 16:18 Doctor's Discharge - Discharge Referrals: SHERRY CANELA MD [Primary Care Provider] - Follow up as needed
--- NOTE | 2018-06-23 17:02 | RADIOLOGY REPORT (SQ) ---
EXAM DESCRIPTION: CT HEAD WITHOUT COMPLETED DATE/TIME: 06/23/2018 4:54 pm REASON FOR STUDY: slurred speech, leaning to left side COMPARISON: None. TECHNIQUE: Axial images acquired through the brain without intravenous contrast. Images reviewed wi th bone, brain and subdural windows. Additional sagittal and coronal reconstructions were generated. Images stored on PACS. All CT scanners at this facility use dose modulation, iterative reconstruction, and/or weight based d osing when appropriate to reduce radiation dose to as low as reasonably achievable (ALARA). [facility]: Dose Right [facility]: CareDose [facility]: Dose Right [facility]: Teradose 4D [facility]: ideeli RADIATION DOSE: CT Rad equipment meets quality standard of care and radiation dose reduction techniq ues were employed. CTDIvol: 53.2 mGy. DLP: 1070 mGy-cm.mGy. LIMITATIONS: None. FINDINGS: VENTRICLES: Prominent. CEREBRUM: No masses. No hemorrhage. No midline shift. Areas of low density in the white matter mos t likely due to chronic micro-vascular ischemic change. No evidence for acute infarction. CEREBELLUM: No masses. No hemorrhage. No alteration of density. No evidence for acute infarction. EXTRAAXIAL SPACES: Age-related involutional change. No fluid collections. No masses. ORBITS AND GLOBE: No intra- or extraconal masses. Normal contour of globe without masses. CALVARIUM: No fracture. PARANASAL SINUSES: No fluid or mucosal thickening. SOFT TISSUES: No mass or hematoma. OTHER: No other significant finding. IMPRESSION: CHRONIC CHANGES OF ATROPHY AND MICROVASCULAR ISCHEMIA. NO ACUTE PROCESS. EVIDENCE OF ACUTE STROKE: NO. TECHNICAL DOCUMENTATION: JOB ID: [id number] Quality ID # [id number]: Final reports with documentation of one or more dose reduction techniques (e.g., Au tomated exposure control, adjustment of the mA and/or kV according to patient size, use of iterative reconstruction technique) 2010 [employer]- All Rights Reserved Reading location - IP/workstation name: [email or web address]
--- NOTE | 2018-06-23 17:02 | RADIOLOGY REPORT (SQ) ---
EXAM DESCRIPTION: CHEST SINGLE VIEW COMPLETED DATE/TIME: 06/23/2018 4:58 pm REASON FOR STUDY: slurred speech, leaning to left side COMPARISON: 04/16/2018. EXAM PARAMETERS: NUMBER OF VIEWS: One view. TECHNIQUE: Single frontal radiographic view of the chest acquired. RADIATION DOSE: NA LIMITATIONS: None. FINDINGS: LUNGS AND PLEURA: No opacities, masses or pneumothorax. No pleural effusion. MEDIASTINUM AND HILAR STRUCTURES: No masses. Contour normal. HEART AND VASCULAR STRUCTURES: Heart normal in size. Normal vasculature. BONES: No acute findings. Marked degenerative changes in the spine with scoliosis HARDWARE: None in the chest. OTHER: No other significant finding. IMPRESSION: NO ACUTE RADIOGRAPHIC FINDING IN THE CHEST. TECHNICAL DOCUMENTATION: JOB ID: [id number] [employer]- All Rights Reserved Reading location - IP/workstation name: [email or web address]
--- NOTE | 2018-06-23 17:20 | ER Document Report ---
ED General - General Chief Complaint: General Weakness Stated Complaint: SHORTNESS OF BREATH Time Seen by Provider: 06/23/18 16:29 Mode of Arrival: Wheelchair Information source: Relative Notes: This is a 87-year-old woman with history of COPD (oxygen dependent, 3 L nasal cannula), history of respiratory failure, CHF, electrolyte disturbance and hypertension. Patient is brought into the emergency room because of increased weakness and dizziness, slurred speech, leading to the left side with a left facial droop which is been going on for the past 3 days as per the patient's . She does look lethargic. She does answer questions and she denies any significant pain. TRAVEL OUTSIDE OF THE [place] IN LAST 30 DAYS: No - HPI Onset: Last week Onset/Duration: Gradual Quality of pain: No pain Severity: None Pain Level: Denies Associated symptoms: denies: Chest pain, Fever, Shortness of breath Exacerbated by: Denies Relieved by: Denies Similar symptoms previously: Yes Recently seen / treated by doctor: No - Related Data Allergies/Adverse Reactions: No Known Allergies Allergy (Unverified 04/16/18 16:39) Past Medical History - General Information source: Patient, Relative - Social History Smoking Status: Unknown if Ever Smoked Cigarette use (# per day): No Chew tobacco use (# tins/day): No Frequency of alcohol use: None Drug Abuse: None Lives with: Family Family History: CAD, DM Patient has suicidal ideation: No Patient has homicidal ideation: No - Past Medical History Cardiac Medical History: Reports: Hx Coronary Artery Disease, Hx Heart Attack, Hx Hypercholesterolemia, Hx Hypertension Pulmonary Medical History: Reports: Hx COPD Denies: Hx Tuberculosis Neurological Medical History: Reports: Hx Cerebrovascular Accident Renal/ Medical History: Denies: Hx Peritoneal Dialysis GI Medical History: Reports: Hx Gastroesophageal Reflux Disease Musculoskeletal Medical History: Reports Hx Arthritis Psychiatric Medical History: Reports: Hx Depression Past Surgical History: Reports: Hx Hysterectomy, Hx Orthopedic Surgery - left knee replacement. Denies: Hx Pacemaker - Immunizations Hx Diphtheria, Pertussis, Tetanus Vaccination: No Hx Pneumococcal Vaccination: 12/23/10 Review of Systems - Review of Systems Constitutional: denies: Chills, Fever EENT: No symptoms reported Cardiovascular: No symptoms reported Respiratory: No symptoms reported Gastrointestinal: No symptoms reported Genitourinary: No symptoms reported Female Genitourinary: No symptoms reported Musculoskeletal: No symptoms reported Skin: No symptoms reported Hematologic/Lymphatic: No symptoms reported Neurological/Psychological: See HPI, Weakness Physical Exam - Vital signs Vitals: Temp Pulse Resp BP Pulse Ox 98.2 F 73 27 H 93/40 L 84 L 06/23/18 16:18 06/23/18 16:18 06/23/18 16:18 06/23/18 16:18 06/23/18 16:18 Notes: Physical exam: GENERAL: 87-year-old female, appears lethargic, no acute distress. She does have a left facial droop. HEAD: Atraumatic, normocephalic. EYES: Pupils equal round and reactive to light, extraocular movements intact, sclera anicteric, conjunctiva are normal. ENT: TMs normal, nares patent, oropharynx clear without exudates. Moist mucous membranes. NECK: Normal range of motion, supple without obvious mass or JVD. LUNGS: Breath sounds clear to auscultation bilaterally and equal. No wheezes rales or rhonchi. HEART: Regular rate and rhythm without murmurs, rubs or gallops. ABDOMEN: Soft, normoactive bowel sounds. No tenderness to palpation. No guarding, no rebound. No masses appreciated. EXTREMITIES: Normal range of motion, no pitting or edema. No clubbing or cyanosis. NEUROLOGICAL: Left facial droop. No focal upper extremity weakness. Patient does have bilateral lower extremity weakness. No focal weakness to the lower extremities. She is unable to read the charts or sentences. She is unable to do finger to nose due to generalized weakness. PSYCH: Normal mood, normal affect. SKIN: Warm, Dry, normal turgor, no rashes or lesions noted. Course - Re-evaluation Re-evalutation: 06/23/18 21:55 Note: The patient has had symptoms for the last 3 days. She does have a facial droop and her gait was not assessed because she has been having difficulty with ambulation and falling to the left. Her NIH score is very limited based upon her mental status at this time. In any event, she does not meet criteria for thrombolytics based upon the fact that her symptoms have clearly been over the past 3 days. She does have evidence of acute renal failure. The plan will be for admit to the hospital. - Vital Signs Vital signs: Temp Pulse Resp BP Pulse Ox 98.2 F 62 19 102/59 L 96 06/23/18 16:18 06/23/18 17:05 06/23/18 18:01 06/23/18 18:01 06/23/18 18:01 - Laboratory Result Diagrams: 06/23/18 17:02 06/23/18 17:02 Laboratory results interpreted by me: 06/23/18 06/23/18 06/23/18 17:02 17:02 17:53 MCHC 31.7 L RDW 18.8 H Lymphocytes % 12.3 L Carbon Dioxide 33 H Anion Gap 4 L BUN 26 H Creatinine 1.75 H Est GFR ( Amer) 34 L Est GFR (Non-Af Amer) 28 L Albumin 3.4 L Urine Ketones TRACE H Urine Urobilinogen 2.0 H - Diagnostic Test Radiology reviewed: Image reviewed, Reports reviewed - CT shows no acute bleed - EKG Interpretation by Me Rhythm: NSR - EKG shows normal sinus rhythm with a left axis deviation, no acute ST-T wave changes Critical Care Note - Critical Care Note Total time excluding time spent on procedures (mins): 60 Discharge - Discharge Clinical Impression: CVA, Acute renal failure Condition: Stable Disposition: ADMITTED INPATIENT Admitting Provider: Hospitalist - Dr. Good Unit Admitted: [facility]
[2018-06-23 17:32] LABS: PROTHROMBIN TIME 13.7 SEC (11.4-15.4)
[2018-06-23 17:33] LABS: PARTIAL THROMBOPLASTIN TIME 28.1 SEC (23.5-35.8)
[2018-06-23 17:35] LABS: ABSOLUTE BASOPHILS # (AUTO) 0.1 10^3/uL (0.0-0.2); ABSOLUTE EOSINOPHILS # (AUTO) 0.4 10^3/uL (0.0-0.6); ABSOLUTE LYMPHOCYTES (AUTO) 0.9 10^3/uL (0.5-4.7); ABSOLUTE MONOCYTES (AUTO) 0.8 10^3/uL (0.1-1.4); ABSOLUTE NEUT (AUTO) 4.9 10^3/uL (1.7-8.2); BASOPHILS % (AUTO) 0.9 % (0-2); EOSINOPHILS % (AUTO) 5.1 % (0-6); HEMATOCRIT 44.5 % (36.0-47.0); HEMOGLOBIN 14.1 g/dL (12.0-15.5); LYMPHOCYTES % (AUTO) 12.3 % (13-45); MEAN CORPUSCULAR HEMOGLOBIN 27.7 pg (27.0-33.4); MEAN CORPUSCULAR HGB CONC 31.7 g/dL (32.0-36.0); MEAN CORPUSCULAR VOLUME 87 fl (80-97); MONOCYTES % (AUTO) 11.4 % (3-13); PLATELET COUNT 297 10^3/uL (150-450); RED CELL DISTRIBUTION WIDTH 18.8 % (11.5-14.0); SEGMENTED NEUTROPHILS % (AUTO) 70.3 % (42-78); TOTAL CELLS COUNTED % (AUTO) 100 %
[2018-06-23 18:07] LABS: ALANINE AMINOTRANSFERASE 30 U/L (9-52); ALBUMIN 3.4 g/dL (3.5-5.0); ALKALINE PHOSPHATASE 81 U/L (38-126); ASPARTATE AMINO TRANSFERASE 27 U/L (14-36); BILIRUBIN,DIRECT 0.3 mg/dL (0.0-0.4); BILIRUBIN,TOTAL 0.5 mg/dL (0.2-1.3); BLOOD UREA NITROGEN 26 mg/dL (7-20); CALCIUM 9.8 mg/dL (8.4-10.2); CARBON DIOXIDE 33 mmol/L (22-30); CHLORIDE 106 mmol/L (98-107); CREATINE KINASE 55 U/L (30-135); GLUCOSE 85 mg/dL (75-110); POTASSIUM 4.4 mmol/L (3.6-5.0); SODIUM 143.1 mmol/L (137-145); TOTAL PROTEIN 7.8 g/dL (6.3-8.2)
[2018-06-23 18:16] LABS: ANION GAP 4 (5-19)
[2018-06-23 18:17] LABS: CREATINE KINASE MB 0.92 ng/mL (<4.55)
[2018-06-23 18:29] LABS: TROPONIN I < 0.012 ng/mL
[2018-06-23 18:48] LABS: APPEARANCE,URINE CLEAR; BILIRUBIN,URINE NEGATIVE (NEGATIVE); COLOR,URINE YELLOW; GLUCOSE, URINE NEGATIVE (NEGATIVE); KETONES,URINE TRACE mg/dL (NEGATIVE); LEUKOCYTE ESTERASE,URINE NEGATIVE (NEGATIVE); NITRITE,URINE NEGATIVE (NEGATIVE); PROTEIN,URINE NEGATIVE (NEGATIVE); URINE SPECIFIC GRAVITY 1.017
[2018-06-23] MEDS ORDERED: NORMAL SALINE 500 ML IV ONE (18:55)
[2018-06-23] MEDS ORDERED: DOCUSATE SODIUM 100 MG CAPSULE PO PRN (19:32)
[2018-06-23] MEDS ORDERED: MAGNESIUM HYDROXIDE SUSP 30 ML UDCUP PO PRN (19:32)
[2018-06-23] MEDS ORDERED: ACETAMINOPHEN 325 MG TABLET PO PRN (19:32)
--- NOTE | 2018-06-23 19:33 | EKG REPORT ---
SEVERITY:- BORDERLINE ECG - SINUS RHYTHM LEFT AXIS DEVIATION BORDERLINE T ABNORMALITIES, ANTERIOR LEADS IMPROVED SINCE 04/17/18 EKG : Confirmed by: French Doherty MD 23-Jun-2018 19:33:01
[2018-06-23] MEDS ORDERED: ALPRAZOLAM 0.5 MG TABLET PO PRN (19:38)
[2018-06-23] MEDS ORDERED: NORMAL SALINE 1000 ML 1,000 ML IV SCH (19:45)
[2018-06-23] MEDS: ATORVASTATIN CALCIUM 20 MG TABLET PO SCH (21:16)
[2018-06-23] MEDS: HEPARIN SOD (PORCINE) 5,000 UNIT/ML 1 ML SYRINGE SUBCUT SCH (21:16)
[2018-06-23] MEDS: ASPIRIN 81 MG TABLET, ENT COATED PO SCH (21:16)
[2018-06-23 23:32] LABS: CREATINE KINASE MB 0.93 ng/mL (<4.55)
[2018-06-23 23:33] LABS: TROPONIN I < 0.012 ng/mL
[2018-06-24] MEDS: NORMAL SALINE 1000 ML 1,000 ML IV PRN ×3 (00:20→10:30)
[2018-06-24] MEDS: HEPARIN SOD (PORCINE) 5,000 UNIT/ML 1 ML SYRINGE SUBCUT SCH ×3 (05:15→21:20)
--- NOTE | 2018-06-24 05:36 | PDOC H&P ---
History of Present Illness Admission Date/PCP: 06/23/18 19:38 PEGGY CLAYTON MD Patient complains of: Generalized weakness History of Present Illness: JASON ZHENG is a 87 year old female with history of coronary artery disease, dyslipidemia, hypertension and COPD. presents with several days of generalized weakness prompting evaluation emergency room. She is found to have hypotension 94/50 without tachycardia or fever, acute renal failure, prerenal azotemia, metabolic alkalosis. Neurologic workup is otherwise unremarkable she is referred to the hospitalist for admission. states Diamox newly started for blood pressure Past Medical History Cardiac Medical History: Reports: Coronary Artery Disease, Myocardial Infarction, Hyperlipidema, Hypertension Pulmonary Medical History: Reports: Chronic Obstructive Pulmonary Disease (COPD) Denies: Tuberculosis GI Medical History: Reports: Gastroesophageal Reflux Disease Musculoskeltal Medical History: Reports: Arthritis Psychiatric Medical History: Reports: Depression Past Surgical History Past Surgical History: Reports: Hysterectomy, Orthopedic Surgery - left knee replacement Denies: Pacemaker Social History Information Source: Patient Lives with: Family Smoking Status: Former Smoker Frequency of Alcohol Use: None Hx Recreational Drug Use: No Drugs: None Hx Prescription Drug Abuse: No - Advance Directive Resuscitation Status: Full Code Family History Family History: CAD, DM Parental Family History Reviewed: Yes Children Family History Reviewed: Yes Sibling(s) Family History Reviewed.: Yes Medication/Allergy Home Medications: Acetazolamide [Diamox Sequel 500 mg] 500 mg PO Q2D 06/23/18 Albuterol Sulfate [Proair Hfa Inhalation Aerosol 8.5 gm Mdi] 1 puff IH Q4HP PRN 06/23/18 Albuterol Sulfate [Ventolin 0.083% Neb 2.5 mg/3 ml Ampul] 1 vial NEB RTQ6 06/23/18 Alprazolam [Xanax 0.5 mg Tablet] 0.5 mg PO Q8HP PRN 06/23/18 Amlodipine Besylate [Norvasc 5 mg Tablet] 5 mg PO DAILY 06/23/18 Aspirin [Adult Low Dose Aspirin EC] 162 mg PO DAILY 06/23/18 Atorvastatin Calcium [Lipitor 40 mg Tablet] 40 mg PO QHS 06/23/18 Collagenase Clostridium Hist. [Santyl Ointment 30 gm] 1 applic TP DAILY 06/23/18 Ezetimibe [Zetia 10 mg Tablet] 10 mg PO DAILY 06/23/18 Fluoxetine HCl [Prozac] 40 mg PO DAILY 06/23/18 Fluticasone/Salmeterol [Advair 250-50 Diskus 14 Dose/Diskus] 1 puff IH Q12 06/23/18 Furosemide [Lasix 20 mg Tablet] 20 mg PO QAM 06/23/18 Hydroxyzine Pamoate [Vistaril] 25 mg PO QHS 06/23/18 Lisinopril [Prinivil 10 mg Tablet] 10 mg PO DAILY 06/23/18 Mirabegron [Myrbetriq] 50 mg PO DAILY 06/23/18 Omeprazole 20 mg PO BID 06/23/18 Salmeterol Xinafoate [Serevent Diskus 50 Mcg/Dose 28 Dose/Diskus] 1 puff IH Q12 06/23/18 Tiotropium Jackson [Spiriva Handihaler 5 Cap/Kit (18 Mcg/Cap)] 1 cap IH DAILY 06/23/18 Allergies/Adverse Reactions: No Known Allergies Allergy (Unverified 04/16/18 16:39) Review of Systems Constitutional: PRESENT: as per HPI, fatigue, weakness. ABSENT: chills, fever(s), headache(s), weight gain, weight loss Eyes: ABSENT: visual disturbances Ears: ABSENT: hearing changes Cardiovascular: ABSENT: chest pain, dyspnea on exertion, edema, orthropnea, palpitations Respiratory: ABSENT: cough, hemoptysis Gastrointestinal: ABSENT: abdominal pain, constipation, diarrhea, hematemesis, hematochezia, nausea, vomiting Genitourinary: ABSENT: dysuria, hematuria Musculoskeletal: ABSENT: joint swelling Integumentary: ABSENT: rash, wounds Neurological: PRESENT: as per HPI, weakness. ABSENT: abnormal gait, abnormal speech, confusion, dizziness, focal weakness, syncope Psychiatric: ABSENT: anxiety, depression, homidical ideation, suicidal ideation Endocrine: ABSENT: cold intolerance, heat intolerance, polydipsia, polyuria Hematologic/Lymphatic: ABSENT: easy bleeding, easy bruising Physical Exam Vital Signs: Temp Pulse Resp BP Pulse Ox 97.4 F 68 14 118/54 L 98 06/24/18 04:00 06/24/18 04:00 06/24/18 04:00 06/24/18 04:00 06/24/18 04:00 Intake & Output 06/22/18 06/23/18 06/24/18 11:59 11:59 11:59 Intake Total 1500 Output Total 675 Balance 825 Weight 62 kg General appearance: PRESENT: no acute distress, cooperative, well-developed, well-nourished Head exam: PRESENT: atraumatic, normocephalic Eye exam: PRESENT: conjunctiva pink, EOMI, PERRLA. ABSENT: scleral icterus Ear exam: PRESENT: normal external ear exam Mouth exam: PRESENT: dry mucosa, tongue midline Neck exam: ABSENT: carotid bruit, JVD, lymphadenopathy, thyromegaly Respiratory exam: PRESENT: clear to auscultation juanjose. ABSENT: rales, rhonchi, wheezes Cardiovascular exam: PRESENT: RRR. ABSENT: diastolic murmur, rubs, systolic murmur Pulses: PRESENT: normal dorsalis pedis pul Vascular exam: PRESENT: normal capillary refill GI/Abdominal exam: PRESENT: normal bowel sounds, soft. ABSENT: distended, guarding, mass, organolmegaly, rebound, tenderness Rectal exam: PRESENT: deferred Extremities exam: PRESENT: full ROM. ABSENT: calf tenderness, clubbing, pedal edema Neurological exam: PRESENT: alert, awake, oriented to person, oriented to place, oriented to time, oriented to situation, CN II-XII grossly intact. ABSENT: motor sensory deficit Psychiatric exam: PRESENT: appropriate affect, normal mood. ABSENT: homicidal ideation, suicidal ideation Skin exam: PRESENT: dry, intact, warm. ABSENT: cyanosis, rash Results Laboratory Results: 06/23/18 17:02 06/23/18 06/23/18 06/23/18 17:02 17:02 17:53 WBC 7.0 RBC 5.10 Hgb 14.1 Hct 44.5 MCV 87 MCH 27.7 MCHC 31.7 L RDW 18.8 H Plt Count 297 Seg Neutrophils % 70.3 Lymphocytes % 12.3 L Monocytes % 11.4 Eosinophils % 5.1 Basophils % 0.9 Absolute Neutrophils 4.9 Absolute Lymphocytes 0.9 Absolute Monocytes 0.8 Absolute Eosinophils 0.4 Absolute Basophils 0.1 Sodium 143.1 Potassium 4.4 Chloride 106 Carbon Dioxide 33 H Anion Gap 4 L BUN 26 H Creatinine 1.75 H Est GFR ( Amer) 34 L Est GFR (Non-Af Amer) 28 L Glucose 85 Calcium 9.8 Total Bilirubin 0.5 AST 27 ALT 30 Alkaline Phosphatase 81 Total Protein 7.8 Albumin 3.4 L Urine Color Cancelled Urine Appearance Cancelled Urine pH Cancelled Ur Specific [place] Cancelled Urine Protein Cancelled Urine Glucose (UA) Cancelled Urine Ketones Cancelled Urine Blood Cancelled Urine Nitrite Cancelled Ur Leukocyte Esterase Cancelled Urine WBC (Auto) Cancelled Urine RBC (Auto) Cancelled 06/23/18 17:53 WBC RBC Hgb Hct MCV MCH MCHC RDW Plt Count Seg Neutrophils % Lymphocytes % Monocytes % Eosinophils % Basophils % Absolute Neutrophils Absolute Lymphocytes Absolute Monocytes Absolute Eosinophils Absolute Basophils Sodium Potassium Chloride Carbon Dioxide Anion Gap BUN Creatinine Est GFR ( Amer) Est GFR (Non-Af Amer) Glucose Calcium Total Bilirubin AST ALT Alkaline Phosphatase Total Protein Albumin Urine Color YELLOW Urine Appearance CLEAR Urine pH 7.0 Ur Specific [place] 1.017 Urine Protein NEGATIVE Urine Glucose (UA) NEGATIVE Urine Ketones TRACE H Urine Blood NEGATIVE Urine Nitrite NEGATIVE Ur Leukocyte Esterase NEGATIVE Urine WBC (Auto) 1 Urine RBC (Auto) 06/23/18 06/23/18 06/23/18 17:02 17:02 17:02 Creatine Kinase 55 CK-MB (CK-2) 0.92 Troponin I < 0.012 NT-Pro-B Natriuret Pep 62 06/23/18 06/23/18 22:55 22:55 Creatine Kinase 50 CK-MB (CK-2) 0.93 Troponin I < 0.012 NT-Pro-B Natriuret Pep Impressions: Chest X-Ray 06/23/18 16:36 IMPRESSION: NO ACUTE RADIOGRAPHIC FINDING IN THE CHEST. Head CT 06/23/18 16:36 IMPRESSION: CHRONIC CHANGES OF ATROPHY AND MICROVASCULAR ISCHEMIA. NO ACUTE PROCESS. EVIDENCE OF ACUTE STROKE: NO. Assessment and Plan - Diagnosis (1) TIA (transient ischemic attack) Is this a current diagnosis for this admission?: Yes Plan: Secondary to hypotension, improved to baseline with 3 L of normal saline, with hold antihypertensive medications for blood pressure greater than 150 systolic. Recent neurologic, cardiac workup is unremarkable. No additional testing ordered (2) Hypotension Is this a current diagnosis for this admission?: Yes Plan: See #1 (3) Alkalosis Is this a current diagnosis for this admission?: Yes Plan: Volume depleted, saline challenge, follow-up chemistry (4) Acute renal failure Is this a current diagnosis for this admission?: Yes Plan: Secondary to hypotension, fluid challenge, follow-up chemistry - Time Time Spent with patient: 15-24 minutes - Inpatient Certification Medical Necessity: Need Close Monitoring Due to Risk of Patient Decompensation
[2018-06-24 05:39] LABS: BLOOD UREA NITROGEN 21 mg/dL (7-20); CHOLESTEROL 114.24 mg/dL (0-200); GLUCOSE 80 mg/dL (75-110); POTASSIUM 3.9 mmol/L (3.6-5.0); TRIGLYCERIDES 66 mg/dL (<150)
[2018-06-24 05:45] LABS: CARBON DIOXIDE 32 mmol/L (22-30); CHLORIDE 111 mmol/L (98-107)
[2018-06-24 05:50] LABS: DIRECT LDL 60 mg/dL (<100)
[2018-06-24 05:56] LABS: ANION GAP 2 (5-19)
[2018-06-24 05:57] LABS: TROPONIN I < 0.012 ng/mL
--- NOTE | 2018-06-24 09:33 | Physician Advisory Note ---
Physician Advisor ProgressNote .: Pursuant to the plan for Pretty Smith, I have reviewed the medical record for this patient. Physician Advisor Statement: -ED record reports pt has chronic dependence on O2 3L at baseline. Also reports PMH of "CHF" & "resp failure". These dx.s aren't mentioned in H&P. -ECHO in Mar shows EF 65% & stage 1 diast dysfunction, "Best estimated RV systolic pressure is elevated at 50-60mmHg." Please document clarification in record: 1. Resp failure - PRESENT ( "Chronic Hypoxemic Resp Failure requiring 3L O2 at baseline") or RULED OUT? - CHRONIC or ACUTE (or both)? - (If Acute, please give evidence.) 2. CHF dx - PRESENT or RULED OUT? - CHRONIC or ACUTE (or both)? - (If Acute, please give evidenc e.) - DIASTOLIC or SYSTOLIC (or both)? - WITH or WITHOUT "pulmonary HTN"? 3. What is cause of pt's hypotension? (Adverse effect of new Rx Diamox? Adverse effect of Lasix? Volume depletion due to ____? ...) 4. What is cause of pt's YG? (Adverse effect of Diamox/Lasix/Lisinopril? Volume depletion due to ____? ...) 5. Medical necessity: What is pt's baseline Cr? Is pt back to baseline Cr, or not yet? Is pt still significantly more hypotensive than baseline? Does she have any ongoing clinical concern, or is she safe for d/c home later today? - If felt unsafe for d/c later today, having clinical need for ongoing hospital level care & monitoring for a 2nd MN in hospital, please document reasoning & may consider change to Inpatient status. Thanks! CK
[2018-06-24] MEDS: ASPIRIN 81 MG TABLET, ENT COATED PO SCH (10:31)
[2018-06-24] MEDS: FLUOXETINE HCL 20 MG CAPSULE PO SCH (10:31)
[2018-06-24] MEDS ORDERED: ALPRAZOLAM 0.25 MG TABLET PO PRN (11:45)
--- NOTE | 2018-06-24 16:18 | PDOC PROGRESS REPORT ---
Subjective Progress Note for:: 06/24/18 Subjective:: No adverse events overnight. Her blood pressure has improved. She still having a lot of trouble getting her thoughts out coherently, and I am not sure if this is her baseline. Her nurse thought that she still had a little bit of left- sided facial droop, and the nurse told me that the patient was not able to swallow anything for her at the bedside. Reason For Visit: CVA,ARF HYPOTENSION Physical Exam Vital Signs: Temp Pulse Resp BP Pulse Ox 97.8 F 67 20 128/60 H 100 06/24/18 12:14 06/24/18 12:14 06/24/18 12:14 06/24/18 12:14 06/24/18 12:14 Intake & Output 06/23/18 06/24/18 06/25/18 06:59 06:59 06:59 Intake Total 1855 1000 Output Total 965 Balance 890 1000 Weight 61.5 kg General appearance: PRESENT: no acute distress, cooperative, disheveled Eye exam: PRESENT: EOMI, PERRLA Neck exam: PRESENT: full ROM. ABSENT: carotid bruit, JVD Respiratory exam: PRESENT: clear to auscultation juanjose, symmetrical, unlabored. ABSENT: accessory muscle use, crackles, prolonged expiratory phas, rhonchi, tachypnea, wheezes Cardiovascular exam: PRESENT: RRR, +S1, +S2 Pulses: PRESENT: normal carotid pulses Vascular exam: PRESENT: normal capillary refill GI/Abdominal exam: PRESENT: normal bowel sounds, soft. ABSENT: distended, gua rding, rebound, tenderness Extremities exam: ABSENT: clubbing, pedal edema Musculoskeletal exam: PRESENT: normal inspection. ABSENT: deformity Neurological exam: PRESENT: alert, awake, oriented to person, other - Speech was dysarthric, she did not seem to have any left facial droop whenever she talks but at rest she does possibly have a very mild left facial droop Psychiatric exam: PRESENT: flat affect Skin exam: PRESENT: dry, warm Results Laboratory Results: 06/23/18 17:02 06/24/18 05:12 06/23/18 06/23/18 06/23/18 17:02 17:02 17:53 WBC 7.0 RBC 5.10 Hgb 14.1 Hct 44.5 MCV 87 MCH 27.7 MCHC 31.7 L RDW 18.8 H Plt Count 297 Seg Neutrophils % 70.3 Lymphocytes % 12.3 L Monocytes % 11.4 Eosinophils % 5.1 Basophils % 0.9 Absolute Neutrophils 4.9 Absolute Lymphocytes 0.9 Absolute Monocytes 0.8 Absolute Eosinophils 0.4 Absolute Basophils 0.1 Sodium 143.1 Potassium 4.4 Chloride 106 Carbon Dioxide 33 H Anion Gap 4 L BUN 26 H Creatinine 1.75 H Est GFR ( Amer) 34 L Est GFR (Non-Af Amer) 28 L Glucose 85 Calcium 9.8 Total Bilirubin 0.5 AST 27 ALT 30 Alkaline Phosphatase 81 Total Protein 7.8 Albumin 3.4 L Triglycerides Cholesterol LDL Cholesterol Direct VLDL Cholesterol HDL Cholesterol Urine Color Cancelled Urine Appearance Cancelled Urine pH Cancelled Ur Specific [place] Cancelled Urine Protein Cancelled Urine Glucose (UA) Cancelled Urine Ketones Cancelled Urine Blood Cancelled Urine Nitrite Cancelled Ur Leukocyte Esterase Cancelled Urine WBC (Auto) Cancelled Urine RBC (Auto) Cancelled 06/23/18 06/24/18 17:53 05:12 WBC RBC Hgb Hct MCV MCH MCHC RDW Plt Count Seg Neutrophils % Lymphocytes % Monocytes % Eosinophils % Basophils % Absolute Neutrophils Absolute Lymphocytes Absolute Monocytes Absolute Eosinophils Absolute Basophils Sodium 145.0 Potassium 3.9 Chloride 111 H Carbon Dioxide 32 H Anion Gap 2 L BUN 21 H Creatinine 1.24 Est GFR ( Amer) 50 L Est GFR (Non-Af Amer) 41 L Glucose 80 Calcium 9.0 Total Bilirubin AST ALT Alkaline Phosphatase Total Protein Albumin Triglycerides 66 Cholesterol 114.24 LDL Cholesterol Direct 60 VLDL Cholesterol 13.0 HDL Cholesterol 29 L Urine Color YELLOW Urine Appearance CLEAR Urine pH 7.0 Ur Specific [place] 1.017 Urine Protein NEGATIVE Urine Glucose (UA) NEGATIVE Urine Ketones TRACE H Urine Blood NEGATIVE Urine Nitrite NEGATIVE Ur Leukocyte Esterase NEGATIVE Urine WBC (Auto) 1 Urine RBC (Auto) 06/23/18 06/23/18 06/23/18 17:02 17:02 17:02 Creatine Kinase 55 CK-MB (CK-2) 0.92 Troponin I < 0.012 NT-Pro-B Natriuret Pep 62 06/23/18 06/23/18 06/24/18 22:55 22:55 05:12 Creatine Kinase 50 45 CK-MB (CK-2) 0.93 Troponin I < 0.012 NT-Pro-B Natriuret Pep 04/05/1306/24/18 06/24/18 05:12 12:45 12:45 Creatine Kinase Cancelled CK-MB (CK-2) 0.80 Cancelled Troponin I < 0.012 Cancelled NT-Pro-B Natriuret Pep Impressions: Chest X-Ray 06/23/18 16:36 IMPRESSION: NO ACUTE RADIOGRAPHIC FINDING IN THE CHEST. Head CT 06/23/18 16:36 IMPRESSION: CHRONIC CHANGES OF ATROPHY AND MICROVASCULAR ISCHEMIA. NO ACUTE PROCESS. EVIDENCE OF ACUTE STROKE: NO. Assessment and Plan - Diagnosis (1) Acute renal failure Qualifiers: Acute renal failure type: unspecified Qualified Code(s): N17.9 - Acute kidney failure, unspecified Is this a current diagnosis for this admission?: Yes Plan: Resolved (2) Hypotension Qualifiers: Hypotension type: hypotension due to hypovolemia Qualified Code(s): I95.89 - Other hypotension; E86.1 - Hypovolemia Is this a current diagnosis for this admission?: Yes Plan: Resolved (3) TIA (transient ischemic attack) Is this a current diagnosis for this admission?: Yes Plan: Initial workup has been negative. MRI is pending. Aspirin and statin are been ordered, and a speech therapy evaluation is pending. - Time Time Spent with patient: 25-34 minutes
[2018-06-24 16:29] LABS: CREATINE KINASE MB 1.06 ng/mL (<4.55)
[2018-06-24 16:31] LABS: TROPONIN I < 0.012 ng/mL
--- NOTE | 2018-06-24 21:17 | RADIOLOGY REPORT (SQ) ---
EXAM DESCRIPTION: MRI brain without contrast CLINICAL HISTORY: 87 years Female; cva Dizziness, left facial droop TECHNIQUE: Routine noncontrast MRI brain protocol COMPARISON: None. FINDINGS: No diffusion restriction. Scattered focal and confluent areas of increased T2 signal in the cerebral white matter bilaterally are nonspecific, but typical for moderate chronic small vessel disease. No acute edema or mass effect. Punctate foci of increased T2 signal in the thalami bilaterally suggest old focal lacunar infarcts. No hemosiderin deposition. Ventricles and cisterns are preserved. There is mild diffuse cerebral atrophy. Calvarial marrow is normal. Paranasal sinuses are clear. Both globes are aphakic. As seen on head CT, there is grade 2 anterior subluxation of C2 on C3 associated with bilateral C2 pedicle defects. Normal flow-voids are seen in the major intracranial arteries. IMPRESSION: 1. No acute infarct or other acute intracranial findings. 2. 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 3. Significant C2-C3 subluxation. If this has not been previously evaluated, consider further evaluation of the cervical spine due to the possibility of an unstable C2-C3 level.
[2018-06-24] MEDS: ATORVASTATIN CALCIUM 20 MG TABLET PO SCH (21:19)
[2018-06-25] MEDS: HEPARIN SOD (PORCINE) 5,000 UNIT/ML 1 ML SYRINGE SUBCUT SCH ×3 (05:37→21:31)
[2018-06-25 06:01] LABS: BLOOD UREA NITROGEN 16 mg/dL (7-20); CALCIUM 9.3 mg/dL (8.4-10.2); CARBON DIOXIDE 28 mmol/L (22-30); CHLORIDE 111 mmol/L (98-107); GLUCOSE 93 mg/dL (75-110); POTASSIUM 4.4 mmol/L (3.6-5.0); SODIUM 142.6 mmol/L (137-145)
[2018-06-25 06:21] LABS: ANION GAP 4 (5-19)
[2018-06-25] MEDS: ASPIRIN 81 MG TABLET, ENT COATED PO SCH (11:17)
[2018-06-25] MEDS: FLUOXETINE HCL 20 MG CAPSULE PO SCH (11:18)
--- NOTE | 2018-06-25 16:13 | PDOC PROGRESS REPORT ---
Subjective Progress Note for:: 06/25/18 Subjective:: No adverse events overnight. No new complaints. She feels like her speech is clearing up and she is overall feeling better. She is eating and drinking without difficulty. No headache or visual disturbance. Reason For Visit: CVA,ARF HYPOTENSION Physical Exam Vital Signs: Temp Pulse Resp BP Pulse Ox 98.1 F 57 L 16 135/64 H 99 06/25/18 11:26 06/25/18 11:26 06/25/18 11:26 06/25/18 11:26 06/25/18 11:26 Intake & Output 06/24/18 06/25/18 06/26/18 06:59 06:59 06:59 Intake Total 1855 3549 Output Total 965 700 Balance 890 2849 Weight 61.5 kg 61.6 kg General appearance: PRESENT: no acute distress, cooperative, disheveled Eye exam: PRESENT: EOMI, PERRLA Neck exam: PRESENT: full ROM. ABSENT: carotid bruit, JVD Respiratory exam: PRESENT: clear to auscultation juanjose, symmetrical, unlabored. ABSENT: accessory muscle use, crackles, prolonged expiratory phas, rhonchi, tachypnea, wheezes Cardiovascular exam: PRESENT: RRR, +S1, +S2 Pulses: PRESENT: normal carotid pulses Vascular exam: PRESENT: normal capillary refill GI/Abdominal exam: PRESENT: normal bowel sounds, soft. ABSENT: distended, guarding, rebound, tenderness Extremities exam: ABSENT: clubbing, pedal edema Musculoskeletal exam: PRESENT: normal inspection. ABSENT: deformity Neurological exam: PRESENT: alert, awake, oriented to person, oriented to place, oriented to situation, no sign of facial droop or dysarthria Psychiatric exam: PRESENT: flat affect Skin exam: PRESENT: dry, warm Results Laboratory Results: 06/23/18 17:02 06/25/18 05:19 06/23/18 06/25/18 17:53 05:19 Sodium 142.6 Potassium 4.4 Chloride 111 H Carbon Dioxide 28 Anion Gap 4 L BUN 16 Creatinine 0.94 Est GFR ( Amer) > 60 Est GFR (Non-Af Amer) 57 L Glucose 93 Calcium 9.3 Urine Color Cancelled Urine Appearance Cancelled Urine pH Cancelled Ur Specific [place] Cancelled Urine Protein Cancelled Urine Glucose (UA) Cancelled Urine Ketones Cancelled Urine Blood Cancelled Urine Nitrite Cancelled Ur Leukocyte Esterase Cancelled Urine WBC (Auto) Cancelled Urine RBC (Auto) Cancelled 06/23/18 17:53 Catheterized Urine Urine Culture - Final NO GROWTH 2 DAYS 06/23/18 06/23/18 06/23/18 17:02 17:02 17:02 Creatine Kinase 55 CK-MB (CK-2) 0.92 Troponin I < 0.012 NT-Pro-B Natriuret Pep 62 06/23/18 06/23/18 06/24/18 22:55 22:55 05:12 Creatine Kinase 50 45 CK-MB (CK-2) 0.93 Troponin I < 0.012 NT-Pro-B Natriuret Pep 06/24/18 06/24/18 06/24/18 05:12 12:45 12:45 Creatine Kinase Cancelled CK-MB (CK-2) 0.80 Cancelled Troponin I < 0.012 Cancelled NT-Pro-B Natriuret Pep 06/24/18 06/24/18 15:00 15:15 Creatine Kinase 71 CK-MB (CK-2) 1.06 Troponin I < 0.012 NT-Pro-B Natriuret Pep Impressions: Chest X-Ray 06/23/18 16:36 IMPRESSION: NO ACUTE RADIOGRAPHIC FINDING IN THE CHEST. Head CT 06/23/18 16:36 IMPRESSION: CHRONIC CHANGES OF ATROPHY AND MICROVASCULAR ISCHEMIA. NO ACUTE PROCESS. EVIDENCE OF ACUTE STROKE: NO. Head MRI 06/24/18 00:00 IMPRESSION: 1. No acute infarct or other acute intracranial findings. 2. 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 3. Significant C2-C3 subluxation. If this has not been previously evaluated, consider further evaluation of the cervical spine due to the possibility of an unstable C2-C3 level. Assessment and Plan - Diagnosis (1) Acute renal failure Qualifiers: Acute renal failure type: unspecified Qualified Code(s): N17.9 - Acute kidney failure, unspecified Is this a current diagnosis for this admission?: Yes Plan: Resolved (2) Hypotension Qualifiers: Hypotension type: hypotension due to hypovolemia Qualified Code(s): I95.89 - Other hypotension; E86.1 - Hypovolemia Is this a current diagnosis for this admission?: Yes Plan: Resolved (3) TIA (transient ischemic attack) Is this a current diagnosis for this admission?: Yes Plan: Initial workup has been negative. MRI was negative. Aspirin and statin are been ordered, and a speech therapy evaluation is pending. She has been eating her diet without much difficulty. A UDS has been ordered to better evaluate her encephalopathy. - Time Time Spent with patient: 25-34 minutes
[2018-06-25] MEDS: ATORVASTATIN CALCIUM 20 MG TABLET PO SCH (21:31)
[2018-06-25 22:13] LABS: URINE AMPHETAMINES SCREEN NEGATIVE; URINE BARBITURATES SCREEN NEGATIVE; URINE COCAINE SCREEN NEGATIVE; URINE MARIJUANA (THC) SCREEN NEGATIVE; URINE METHADONE SCREEN NEGATIVE; URINE PHENCYCLIDINE SCREEN NEGATIVE
[2018-06-25 22:20] LABS: URINE BENZODIAZEPINES SCREEN UNCONFIRMED POSITIVE
[2018-06-26] MEDS: HEPARIN SOD (PORCINE) 5,000 UNIT/ML 1 ML SYRINGE SUBCUT SCH ×2 (05:03→17:39)
[2018-06-26 05:51] LABS: BLOOD UREA NITROGEN 9 mg/dL (7-20); CALCIUM 9.5 mg/dL (8.4-10.2); CARBON DIOXIDE 28 mmol/L (22-30); CHLORIDE 110 mmol/L (98-107); GLUCOSE 105 mg/dL (75-110); POTASSIUM 3.9 mmol/L (3.6-5.0); SODIUM 140.2 mmol/L (137-145)
[2018-06-26 06:31] LABS: ANION GAP 5 (5-19)
[2018-06-26] MEDS: ASPIRIN 81 MG TABLET, ENT COATED PO SCH (09:18)
[2018-06-26] MEDS: FLUOXETINE HCL 20 MG CAPSULE PO SCH (09:18)
[2018-06-26] MEDS ORDERED: ONDANSETRON HCL INJ/PF 4 MG/2 ML SDV IV PRN (11:21)
[2018-06-26 16:44] VITALS: BP 148/70
--- NOTE | 2018-06-26 17:48 | PDOC DISCHARGE SUMMARY ---
General - Admit/Disc Date/PCP Admission Date/Primary Care Provider: 06/25/18 17:08 PEGGY CLAYTON MD Discharge Date: 06/26/18 - Discharge Diagnosis (1) Acute renal failure Is this a current diagnosis for this admission?: Yes Summary: Resolved with IV fluids (2) Hypotension Is this a current diagnosis for this admission?: Yes Summary: Resolved with IV fluids (3) TIA (transient ischemic attack) Is this a current diagnosis for this admission?: Yes Summary: MRI was negative for acute stroke. I do not believe this was a TIA. I think she had some CO2 retention that was not picked up on admission because no ABG was checked, but her serum CO2 was elevated, and got lower over time as we focused on keeping her SPO2 between 88-94%. Another possibility is that she was not taking her Ativan at home as prescribed, and/or her blood levels got elevated when she got dehydrated. - Additional Information Resuscitation Status: Full Code Discharge Diet: Cardiac Discharge Activity: Supervised Activity Home Medications: Acetazolamide [Diamox Sequel 500 mg] 500 mg PO Q2D 06/23/18 Albuterol Sulfate [Proair HFA Inhalation Aerosol 8.5 gm MDI] 1 puff IH Q4HP PRN 06/23/18 Albuterol Sulfate [Ventolin 0.083% Neb 2.5 mg/3 mL Ampul] 1 vial NEB RTQ6 06/23/18 Alprazolam [Xanax 0.5 mg Tablet] 0.5 mg PO Q8HP PRN 06/23/18 Amlodipine Besylate [Norvasc 5 mg Tablet] 5 mg PO DAILY 06/23/18 Aspirin [Adult Low Dose Aspirin EC] 162 mg PO DAILY 06/23/18 Atorvastatin Calcium [Lipitor 40 mg Tablet] 40 mg PO QHS 06/23/18 Collagenase Clostridium Hist. [Santyl Ointment 30 gm] 1 applic TP DAILY 06/23/18 Ezetimibe [Zetia 10 mg Tablet] 10 mg PO DAILY 06/23/18 Fluoxetine HCl [Prozac] 40 mg PO DAILY 06/23/18 Fluticasone/Salmeterol [Advair 250-50 Diskus 14 Dose/Diskus] 1 puff IH Q12 06/23/18 Furosemide [Lasix 20 mg Tablet] 20 mg PO QAM 06/23/18 Hydroxyzine Pamoate [Vistaril] 25 mg PO QHS 06/23/18 Lisinopril [Prinivil 10 mg Tablet] 10 mg PO DAILY 06/23/18 Mirabegron [Myrbetriq] 50 mg PO DAILY 06/23/18 Omeprazole 20 mg PO BID 06/23/18 Salmeterol Xinafoate [Serevent Diskus 50 Mcg/Dose 28 Dose/Diskus] 1 puff IH Q12 06/23/18 Tiotropium [place] [Spiriva Handihaler 5 Cap/Kit (18 Mcg/Cap)] 1 cap IH DAILY 06/23/18 History of Present Illness History of Present Illness: JASON ZHENG is a 87 year old female with history of coronary artery disease, dyslipidemia, hypertension and COPD. presents with several days of generalized weakness prompting evaluation emergency room. She is found to have hypotension 94/50 without tachycardia or fever, acute renal failure, prerenal azotemia, metabolic alkalosis. Neurologic workup is otherwise unremarkable she is referred to the hospitalist for admission. states Diamox newly started for blood pressure Hospital Course Hospital Course: MRI was negative for acute stroke. I do not believe this was a TIA. I think she had some CO2 retention that was not picked up on admission because no ABG w as checked, but her serum CO2 was elevated, and got lower over time as we focused on keeping her SPO2 between 88-94%. Another possibility is that she was not taking her Ativan at home as prescribed, and/or her blood levels got elevated when she got dehydrated. Her symptoms resolved with supportive care. She was seen and evaluated by physical therapy who recommended home health PT. Her labs and examination were reassuring she was discharged home with her with home health PT orders. Physical Exam Vital Signs: Temp Pulse Resp BP Pulse Ox 97.7 F 66 16 148/70 H 90 L 06/26/18 16:41 06/26/18 16:41 06/26/18 16:41 06/26/18 16:41 06/26/18 16:41 Intake & Output 06/25/18 06/26/18 06/27/18 06:59 06:59 06:59 Intake Total 3549 711 Output Total 700 590 Balance 2849 121 Weight 61.6 kg 61.9 kg General appearance: PRESENT: no acute distress, cooperative, disheveled Eye exam: PRESENT: EOMI, PERRLA Neck exam: PRESENT: full ROM. ABSENT: carotid bruit, JVD Respiratory exam: PRESENT: clear to auscultation juanjose, symmetrical, unlabored. ABSENT: accessory muscle use, crackles, prolonged expiratory phas, rhonchi, tachypnea, wheezes Cardiovascular exam: PRESENT: RRR, +S1, +S2 Pulses: PRESENT: normal carotid pulses Vascular exam: PRESENT: normal capillary refill GI/Abdominal exam: PRESENT: normal bowel sounds, soft. ABSENT: distended, guarding, rebound, tenderness Extremities exam: ABSENT: clubbing, pedal edema Musculoskeletal exam: PRESENT: normal inspection. ABSENT: deformity Neurological exam: PRESENT: alert, awake, oriented to person, oriented to place, oriented to situation, no sign of facial droop or dysarthria Psychiatric exam: PRESENT: flat affect Skin exam: PRESENT: dry, warm Results Laboratory Results: 06/23/18 17:02 06/26/18 04:56 06/26/18 04:56 Sodium 140.2 Potassium 3.9 Chloride 110 H Carbon Dioxide 28 Anion Gap 5 BUN 9 Creatinine 0.75 Est GFR ( Amer) > 60 Est GFR (Non-Af Amer) > 60 Glucose 105 Calcium 9.5 06/23/18 06/23/18 06/23/18 17:02 17:02 17:02 Creatine Kinase 55 CK-MB (CK-2) 0.92 Troponin I < 0.012 NT-Pro-B Natriuret Pep 62 06/23/18 06/23/18 06/24/18 22:55 22:55 05:12 Creatine Kinase 50 45 CK-MB (CK-2) 0.93 Troponin I < 0.012 NT-Pro-B Natriuret Pep 06/24/18 06/24/18 06/24/18 05:12 12:45 12:45 Creatine Kinase Cancelled CK-MB (CK-2) 0.80 Cancelled Troponin I < 0.012 Cancelled NT-Pro-B Natriuret Pep 06/24/18 06/24/18 15:00 15:15 Creatine Kinase 71 CK-MB (CK-2) 1.06 Troponin I < 0.012 NT-Pro-B Natriuret Pep Impressions: Chest X-Ray 06/23/18 16:36 IMPRESSION: NO ACUTE RADIOGRAPHIC FINDING IN THE CHEST. Head CT 06/23/18 16:36 IMPRESSION: CHRONIC CHANGES OF ATROPHY AND MICROVASCULAR ISCHEMIA. NO ACUTE PROCESS. EVIDENCE OF ACUTE STROKE: NO. Head MRI 06/24/18 00:00 IMPRESSION: 1. No acute infarct or other acute intracranial findings. 2. 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 3. Significant C2-C3 subluxation. If this has not been previously evaluated, consider further evaluation of the cervical spine due to the possibility of an unstable C2-C3 level. Qualifiers - * PATIENT BEING DISCHARGED WITH ANY OF THE FOLLOWING DIAGNOSIS: No
[2018-06-27] MEDS ORDERED: ASPIRIN 81 MG TABLET, ENT COATED PO SCH (10:00)
== END 2018-06-26 17:40 | disposition home or self-care (01) | DRG 682 ==
LOC: EDBD → ER 15:54 → EDBD 15:54 → EH 19:38 → INTOOBSV 19:38 → 3W 23:30 → OBSVTOIN 06-25 17:08
PROVIDERS: ADMIT Family Medicine; ATTEND Internal Medicine
DX: N17.9 Acute kidney failure, unspecified (principal); G92 Toxic encephalopathy; G93.41 Metabolic encephalopathy; E87.3 Alkalosis; E86.0 Dehydration; R47.81 Slurred speech; R29.810 Facial weakness; I25.10 Atherosclerotic heart disease of native coronary artery without angina pectoris; E78.5 Hyperlipidemia, unspecified; I10 Essential (primary) hypertension; K21.9 Gastro-esophageal reflux disease without esophagitis; M19.90 Unspecified osteoarthritis, unspecified site; F32.9 Major depressive disorder, single episode, unspecified; I95.89 Other hypotension; E86.1 Hypovolemia; I25.2 Old myocardial infarction; Z96.652 Presence of left artificial knee joint; Z99.81 Dependence on supplemental oxygen; Z79.82 Long term (current) use of aspirin; Z79.899 Other long term (current) drug therapy; Z86.73 Personal history of transient ischemic attack (TIA), and cerebral infarction without residual deficits; Z90.710 Acquired absence of both cervix and uterus; Z87.891 Personal history of nicotine dependence; Z83.3 Family history of diabetes mellitus; Z82.49 Family history of ischemic heart disease and other diseases of the circulatory system
CPT/HCPCS: 36415; 51702; 70450; 70551; 71045; 80048; 80053; 80061; 80307; 81001; 82550; 82553; 82962; 83880; 84484; 85025; 85610; 85730; 87086; 93005; 93010; 99291; G0378; J1644; J3490; J7030; J7040

== ENCOUNTER → 2018-08-29 | Outpatient (CLI) | payer MEDICARE, OTHER ==
--- NOTE | 2018-08-29 10:22 | RADIOLOGY REPORT (SQ) ---
EXAM DESCRIPTION: CT CHEST WITHOUT COMPLETED DATE/TIME: 08/29/2018 8:38 am REASON FOR STUDY: SOLITARY PULMONARY NODULE (R91.1), EMPHYSEMA (J43.9) R91.1 SOLITARY PULMONARY NOD ULE R91.8 OTHER NONSPECIFIC ABNORMAL FINDING OF LUNG FIELD J43.9 EMPHYSEMA, UNSPECIFIED COMPARISON: 06/03/2018. TECHNIQUE: CT scan performed of the chest without intravenous contrast. Images reviewed with lung, soft tissue and bone windows. Reconstructed coronal and sagittal MPR images reviewed. All images st ored on PACS. All CT scanners at this facility use dose modulation, iterative reconstruction, and/or weight based d osing when appropriate to reduce radiation dose to as low as reasonably achievable (ALARA). [facility]: Dose Right [facility]: CareDose [facility]: Dose Right [facility]: Teradose 4D [facility]: Smart [employer] RADIATION DOSE: CT Rad equipment meets quality standard of care and radiation dose reduction techniq ues were employed. CTDIvol: 9.9 mGy. DLP: 357 mGy-cm. mGy. LIMITATIONS: No technical limitations. FINDINGS: LUNGS AND PLEURA: Emphysematous changes with chronic scarring. Pulmonary nodules as follo ws: Irregular nodule in the left upper lobe abutting the major fissure (axial series 4, image 29) measuri ng 0.8 x 2.1 cm. Prior measurement 0.7 x 2.2 cm. Spiculated nodule in the right upper lobe (axial series 4, image 50) measuring 8.2 mm. Prior measure ment 9 mm. Spiculated nodule in the left lower lobe (axial series 4, image 95) measuring 10.6 mm. Prior measure ment 9 mm. No new nodules or masses. No pleural effusions or pleural calcifications. HILAR AND MEDIASTINAL STRUCTURES: No identified masses or abnormal nodes. No obvious aneurysm. HEART AND VASCULAR STRUCTURES: No aneurysm. No pericardial effusion. UPPER ABDOMEN: No significant findings. Limited exam. THYROID AND OTHER SOFT TISSUES: No masses. No adenopathy. BONES: No significant finding. HARDWARE: None in the chest. OTHER: No other significant findings. IMPRESSION: CHRONIC EMPHYSEMATOUS CHANGES WITH SCARRING. PULMONARY NODULES DETAILED ABOVE APPEAR UNCHANGED SINCE 06/03/2018. NO SIGNIFICANT PROGRESSION AND NO NEW FINDINGS. RECOMMEND FOLLOW-UP CT IN 6 MONTHS. TECHNICAL DOCUMENTATION: JOB ID: [id number] Quality ID # [id number]: Final reports with documentation of one or more dose reduction techniques (e.g., Au tomated exposure control, adjustment of the mA and/or kV according to patient size, use of iterative reconstruction technique) 2010 [employer]- All Rights Reserved Reading location - IP/workstation name: [email or web address]
== END ==
LOC: RAD 07:53
PROVIDERS: ATTEND Internal Medicine Critical Care Medicine
DX: J43.9 Emphysema, unspecified (principal); R91.1 Solitary pulmonary nodule; R91.8 Other nonspecific abnormal finding of lung field
CPT/HCPCS: 71250

== ENCOUNTER → 2018-09-16 | Outpatient (CLI) | payer MEDICARE, OTHER ==
[2018-09-16 08:18] LABS: ALANINE AMINOTRANSFERASE 18 U/L (9-52); ALBUMIN 3.3 g/dL (3.5-5.0); ALKALINE PHOSPHATASE 82 U/L (38-126); ASPARTATE AMINO TRANSFERASE 29 U/L (14-36); BILIRUBIN,DIRECT 0.3 mg/dL (0.0-0.4); BILIRUBIN,TOTAL 0.7 mg/dL (0.2-1.3); BLOOD UREA NITROGEN 18 mg/dL (7-20); CALCIUM 9.4 mg/dL (8.4-10.2); CARBON DIOXIDE 34 mmol/L (22-30); CHLORIDE 105 mmol/L (98-107); CHOLESTEROL 146.75 mg/dL (0-200); GLUCOSE 78 mg/dL (75-110); POTASSIUM 4.5 mmol/L (3.6-5.0); SODIUM 142.8 mmol/L (137-145); TOTAL PROTEIN 7.1 g/dL (6.3-8.2); TRIGLYCERIDES 76 mg/dL (<150)
[2018-09-16 08:29] LABS: DIRECT LDL 68 mg/dL (<100)
[2018-09-16 08:37] LABS: ANION GAP 5 (5-19)
== END ==
LOC: OD 07:22
PROVIDERS: ATTEND Physician Assistant
DX: E78.00 Pure hypercholesterolemia, unspecified (principal); I10 Essential (primary) hypertension; I25.2 Old myocardial infarction; Z79.899 Other long term (current) drug therapy
CPT/HCPCS: 36415; 80048; 80061; 80076; 83735

== ENCOUNTER → 2018-12-11 | Outpatient (CLI) | payer MEDICARE, OTHER ==
[2018-12-11 08:39] LABS: ALBUMIN 3.2 g/dL (3.5-5.0); ALKALINE PHOSPHATASE 75 U/L (38-126); ASPARTATE AMINO TRANSFERASE 29 U/L (14-36); BILIRUBIN,DIRECT 0.2 mg/dL (0.0-0.4); BILIRUBIN,TOTAL 0.4 mg/dL (0.2-1.3); BLOOD UREA NITROGEN 18 mg/dL (7-20); CALCIUM 9.4 mg/dL (8.4-10.2); GLUCOSE 84 mg/dL (75-110); POTASSIUM 4.3 mmol/L (3.6-5.0); TOTAL PROTEIN 6.8 g/dL (6.3-8.2); TRIGLYCERIDES 69 mg/dL (<150)
[2018-12-11 08:44] LABS: CARBON DIOXIDE 37 mmol/L (22-30); CHLORIDE 103 mmol/L (98-107)
[2018-12-11 08:50] LABS: DIRECT LDL 78 mg/dL (<100)
[2018-12-11 10:29] LABS: ANION GAP 3 (5-19)
== END ==
LOC: OD 07:20
PROVIDERS: ATTEND Physician Assistant
DX: E78.00 Pure hypercholesterolemia, unspecified (principal); I10 Essential (primary) hypertension; Z79.899 Other long term (current) drug therapy
CPT/HCPCS: 36415; 80048; 80061; 80076

== ENCOUNTER → 2019-03-10 | Outpatient (CLI) | payer MEDICARE, OTHER ==
[2019-03-10 08:28] LABS: ALBUMIN 3.5 g/dL (3.5-5.0); ALKALINE PHOSPHATASE 90 U/L (38-126); ANION GAP 10 (5-19); ASPARTATE AMINO TRANSFERASE 28 U/L (14-36); BILIRUBIN,DIRECT 0.1 mg/dL (0.0-0.4); BILIRUBIN,TOTAL 0.5 mg/dL (0.2-1.3); BLOOD UREA NITROGEN 20 mg/dL (7-20); CALCIUM 9.4 mg/dL (8.4-10.2); CARBON DIOXIDE 34 mmol/L (22-30); CHLORIDE 99 mmol/L (98-107); CHOLESTEROL 143.21 mg/dL (0-200); GLUCOSE 82 mg/dL (75-110); POTASSIUM 4.5 mmol/L (3.6-5.0); TOTAL PROTEIN 7.6 g/dL (6.3-8.2); TRIGLYCERIDES 56 mg/dL (<150)
[2019-03-10 08:39] LABS: DIRECT LDL 76 mg/dL (<100)
== END ==
LOC: OD 07:32
PROVIDERS: ATTEND Physician Assistant
DX: E78.00 Pure hypercholesterolemia, unspecified (principal); I12.9 Hypertensive chronic kidney disease with stage 1 through stage 4 chronic kidney disease, or unspecified chronic kidney disease; N18.3 Chronic kidney disease, stage 3 (moderate); Z79.899 Other long term (current) drug therapy
CPT/HCPCS: 36415; 80048; 80061; 80076

== ENCOUNTER → 2019-06-11 | Outpatient (CLI) | payer MEDICARE, OTHER ==
[2019-06-11 09:36] LABS: ALBUMIN 3.7 g/dL (3.5-5.0); ALKALINE PHOSPHATASE 88 U/L (38-126); ANION GAP 7 (5-19); ASPARTATE AMINO TRANSFERASE 30 U/L (14-36); BILIRUBIN,DIRECT 0.3 mg/dL (0.0-0.4); BILIRUBIN,TOTAL 0.5 mg/dL (0.2-1.3); BLOOD UREA NITROGEN 19 mg/dL (7-20); CALCIUM 9.4 mg/dL (8.4-10.2); CARBON DIOXIDE 35 mmol/L (22-30); CHLORIDE 101 mmol/L (98-107); CHOLESTEROL 152.43 mg/dL (0-200); GLUCOSE 79 mg/dL (75-110); POTASSIUM 4.7 mmol/L (3.6-5.0); TOTAL PROTEIN 8.1 g/dL (6.3-8.2); TRIGLYCERIDES 88 mg/dL (<150)
[2019-06-11 09:48] LABS: DIRECT LDL 76 mg/dL (<100)
== END ==
LOC: OD 08:21
PROVIDERS: ATTEND Physician Assistant
DX: E78.00 Pure hypercholesterolemia, unspecified (principal); I10 Essential (primary) hypertension; Z79.899 Other long term (current) drug therapy
CPT/HCPCS: 36415; 80048; 80061; 80076

== ENCOUNTER → 2019-08-24 | Outpatient (CLI) | payer MEDICARE, OTHER ==
--- NOTE | 2019-08-24 15:50 | RADIOLOGY REPORT (SQ) ---
EXAM DESCRIPTION: CT CHEST WITHOUT IMAGES COMPLETED DATE/TIME: 08/24/2019 2:19 pm REASON FOR STUDY: J44.9 CHRONIC OBSTRUCTIVE PULMONARY DISEASE, UNSPECIFIED J44.9 CHRONIC OBSTRUCTIV E PULMONARY DISEASE, UNSPECIFIED R91.1 SOLITARY PULMONARY NODULE COMPARISON: CT of the chest without contrast from 08/29/2018 and PET from 06/03/2018. TECHNIQUE: CT scan performed of the chest without intravenous contrast. Images reviewed with lung, soft tissue and bone windows. Reconstructed coronal and sagittal MPR images reviewed. All images st ored on PACS. All CT scanners at this facility use dose modulation, iterative reconstruction, and/or weight based d osing when appropriate to reduce radiation dose to as low as reasonably achievable (ALARA). [facility]: Dose Right [facility]: CareDose [facility]: Dose Right [facility]: Teradose 4D [facility]: [employer] RADIATION DOSE: CT Rad equipment meets quality standard of care and radiation dose reduction techniq ues were employed. CTDIvol: 10.5 mGy. DLP: 368 mGy-cm. LIMITATIONS: No technical limitations. FINDINGS: LUNGS AND PLEURA: Unchanged moderate to severe upper lobe predominant centrilobular emphys graham with mild persistent prominence of the interstitium. The ill-defined/spiculated nodular opacity in the superior aspect of the left upper lobe that abuts the interlobar fissure (image 27 of series 4 ) is unchanged. The nodule in the inferior aspect of the left lower lobe (image 84 of series 4) has increased in size since 08/29/2018 and it measures 15 x 11 mm compared to 11 x 9 mm on the prior CT. T he perihilar nodule that abuts the interlobar fissure in the right upper lobe (image 51 of series 4) has also increased in size and it measures 14 x 12 mm compared to 8 x 6 mm on the prior CT. In addit ion, the increased nodularity in the right hilum (image 27 of series 2) is concerning for adenopathy. There is no acute consolidation, ground-glass opacification or pleural effusion. HILAR AND MEDIASTINAL STRUCTURES: Paraesophageal hernia. Evaluation of the vipul for adenopathy is li mited due to the absence of intravenous contrast. There is no mediastinal adenopathy or mass. HEART AND VASCULAR STRUCTURES: Atherosclerotic calcification of the aortic arch. There is no aneurys m of the thoracic aorta. The left ventricle is enlarged and there is moderate atherosclerotic calcif ication of the coronary arteries. There is no sizable pericardial effusion. UPPER ABDOMEN: Vascular calcification of the upper abdominal vasculature. There is no evidence of he patic steatosis. The spleen is normal in size. There is no adrenal mass. THYROID AND OTHER SOFT TISSUES: No adenopathy or mass. BONES: Dextroconvex scoliotic curvature of the lumbar spine. There is no fracture or osseous lesion. HARDWARE: None in the chest. OTHER: No other findings. IMPRESSION: 1. Enlarging nodules in the inferior aspect of the left lower lobe and perihilar aspect of the right upper lobe as detailed above. 2. Stable ill-defined/spiculated nodular opacity in the superior aspect of the left upper lobe that abuts the interlobar fissure. 3. Increased nodularity in the right hilum concerning for adenopathy. TECHNICAL DOCUMENTATION: JOB ID: [id number] Quality ID # [id number]: Final reports with documentation of one or more dose reduction techniques (e.g., Au tomated exposure control, adjustment of the mA and/or kV according to patient size, use of iterative reconstruction technique) 2010 [employer]- All Rights Reserved Reading location - IP/workstation name: [email or web address]
== END ==
LOC: RAD 13:47
PROVIDERS: ATTEND Internal Medicine Critical Care Medicine
DX: J44.9 Chronic obstructive pulmonary disease, unspecified (principal); R91.1 Solitary pulmonary nodule; R06.09 Other forms of dyspnea; E78.00 Pure hypercholesterolemia, unspecified; K44.9 Diaphragmatic hernia without obstruction or gangrene; R91.8 Other nonspecific abnormal finding of lung field; I10 Essential (primary) hypertension; Z86.79 Personal history of other diseases of the circulatory system; Z87.01 Personal history of pneumonia (recurrent)
CPT/HCPCS: 71250

== ENCOUNTER → 2019-09-16 | Outpatient (CLI) | payer MEDICARE, OTHER ==
[2019-09-16 08:55] LABS: ALBUMIN 3.6 g/dL (3.5-5.0); ALKALINE PHOSPHATASE 84 U/L (38-126); ANION GAP 5 (5-19); ASPARTATE AMINO TRANSFERASE 28 U/L (14-36); BILIRUBIN,TOTAL 0.5 mg/dL (0.2-1.3); BLOOD UREA NITROGEN 20 mg/dL (7-20); CALCIUM 9.5 mg/dL (8.4-10.2); CARBON DIOXIDE 35 mmol/L (22-30); CHLORIDE 102 mmol/L (98-107); CHOLESTEROL 148.32 mg/dL (0-200); GLUCOSE 94 mg/dL (75-110); POTASSIUM 4.2 mmol/L (3.6-5.0); TOTAL PROTEIN 7.4 g/dL (6.3-8.2); TRIGLYCERIDES 94 mg/dL (<150)
[2019-09-16 09:06] LABS: DIRECT LDL 65 mg/dL (<100)
== END ==
LOC: OD 07:48
PROVIDERS: ATTEND Physician Assistant
DX: E78.00 Pure hypercholesterolemia, unspecified (principal); I10 Essential (primary) hypertension; Z79.899 Other long term (current) drug therapy
CPT/HCPCS: 36415; 80048; 80061; 80076

== ENCOUNTER → 2019-12-18 | Outpatient (CLI) | payer MEDICARE, OTHER ==
[2019-12-18 10:45] LABS: ALBUMIN 3.5 g/dL (3.5-5.0); ALKALINE PHOSPHATASE 78 U/L (38-126); ANION GAP 5 (5-19); ASPARTATE AMINO TRANSFERASE 30 U/L (14-36); BILIRUBIN,DIRECT 0.3 mg/dL (0.0-0.4); BILIRUBIN,TOTAL 0.6 mg/dL (0.2-1.3); BLOOD UREA NITROGEN 22 mg/dL (7-20); CALCIUM 9.1 mg/dL (8.4-10.2); CARBON DIOXIDE 34 mmol/L (22-30); CHLORIDE 104 mmol/L (98-107); CHOLESTEROL 145.84 mg/dL (0-200); GLUCOSE 87 mg/dL (75-110); POTASSIUM 4.6 mmol/L (3.6-5.0); TOTAL PROTEIN 7.1 g/dL (6.3-8.2); TRIGLYCERIDES 79 mg/dL (<150)
[2019-12-18 10:55] LABS: DIRECT LDL 67 mg/dL (<100)
== END ==
LOC: OD 09:33
PROVIDERS: ATTEND Physician Assistant
DX: I12.9 Hypertensive chronic kidney disease with stage 1 through stage 4 chronic kidney disease, or unspecified chronic kidney disease (principal); N18.3 Chronic kidney disease, stage 3 (moderate); E78.00 Pure hypercholesterolemia, unspecified; Z79.899 Other long term (current) drug therapy
CPT/HCPCS: 36415; 80048; 80061; 80076

== ENCOUNTER → 2020-02-08 | Outpatient (CLI) | payer MEDICARE, OTHER ==
--- NOTE | 2020-02-08 14:25 | RADIOLOGY REPORT (SQ) ---
EXAM DESCRIPTION: CT CHEST WITHOUT IMAGES COMPLETED DATE/TIME: 02/08/2020 10:21 am REASON FOR STUDY: J43.9 EMPHYSEMA, UNSPECIFIED J43.9 EMPHYSEMA, UNSPECIFIED COMPARISON: 08/24/2019 TECHNIQUE: CT scan performed of the chest without intravenous contrast. Images reviewed with lung, soft tissue and bone windows. Reconstructed coronal and sagittal MPR images reviewed. All images st ored on PACS. All CT scanners at this facility use dose modulation, iterative reconstruction, and/or weight based d osing when appropriate to reduce radiation dose to as low as reasonably achievable (ALARA). [facility]: Dose Right [facility]: CareDose [facility]: Dose Right [facility]: Teradose 4D [facility]: [employer] RADIATION DOSE: CT Rad equipment meets quality standard of care and radiation dose reduction techniq ues were employed. CTDIvol: 10.0 mGy. DLP: 418 mGy-cm. mGy. LIMITATIONS: No technical limitations. FINDINGS: LUNGS AND PLEURA: Extensive centrilobular emphysema. Stable left upper lobe nodule/scar. Left lower lobe nodule seen on image 92 now measures 15 x 16.1 mm. Right perihilar nodule shows fur ther increase in size, measuring 17.5 x 12.5 mm on image 56. HILAR AND MEDIASTINAL STRUCTURES: Cannot exclude mild right hilar adenopathy. Small hiatal hernia. HEART AND VASCULAR STRUCTURES: No aneurysm. No pericardial effusion. UPPER ABDOMEN: Renal atherosclerosis. THYROID AND OTHER SOFT TISSUES: No masses. No adenopathy. BONES: No significant finding. HARDWARE: None in the chest. OTHER: No other significant findings. IMPRESSION: 1. Further increase in size and pulmonary nodules as described. Recommend follow-up PE T-CT. 2. Pulmonary emphysema. 3. Cannot exclude mild right hilar adenopathy. 4. Small hiatal hernia. 5. Renal atherosclerosis. TECHNICAL DOCUMENTATION: JOB ID: [id number] Quality ID # [id number]: Final reports with documentation of one or more dose reduction techniques (e.g., Au tomated exposure control, adjustment of the mA and/or kV according to patient size, use of iterative reconstruction technique) 2010 [employer]- All Rights Reserved Reading location - IP/workstation name: [email or web address]
== END ==
LOC: RAD 09:57
PROVIDERS: ATTEND Internal Medicine Critical Care Medicine
DX: J43.9 Emphysema, unspecified (principal); R91.8 Other nonspecific abnormal finding of lung field; R91.1 Solitary pulmonary nodule
CPT/HCPCS: 71250

== ENCOUNTER → 2020-04-19 | Outpatient (CLI) | payer MEDICARE, OTHER ==
[2020-04-19 09:36] LABS: ALBUMIN 3.6 g/dL (3.5-5.0); ALKALINE PHOSPHATASE 103 U/L (38-126); ANION GAP 7 (5-19); ASPARTATE AMINO TRANSFERASE 31 U/L (14-36); BILIRUBIN,DIRECT 0.3 mg/dL (0.0-0.4); BILIRUBIN,TOTAL 0.4 mg/dL (0.2-1.3); BLOOD UREA NITROGEN 18 mg/dL (7-20); CALCIUM 9.4 mg/dL (8.4-10.2); CARBON DIOXIDE 36 mmol/L (22-30); CHLORIDE 103 mmol/L (98-107); CHOLESTEROL 156.31 mg/dL (0-200); GLUCOSE 100 mg/dL (75-110); POTASSIUM 4.2 mmol/L (3.6-5.0); TOTAL PROTEIN 7.8 g/dL (6.3-8.2); TRIGLYCERIDES 84 mg/dL (<150)
[2020-04-19 09:47] LABS: DIRECT LDL 68 mg/dL (<100)
== END ==
LOC: OD 08:13
PROVIDERS: ATTEND Physician Assistant
DX: E78.00 Pure hypercholesterolemia, unspecified (principal); I10 Essential (primary) hypertension; Z79.899 Other long term (current) drug therapy
CPT/HCPCS: 36415; 80048; 80061; 80076